=== PATIENT | male | born 1945 | race Caucasian/White ===

== ENCOUNTER → 2016-02-20 | Outpatient (CLI) | payer OTHER ==
[~2016-02-20] MED LIST: AMLO-110 PO; ASPEC81 PO; ATOR-26 PO; CEPH500C2 PO; CIPR-255 PO; DOCU-94 PO; EMPA1TAB3 PO; HYDR-5688 PO; HYG/25 PO; INSUINJ2 SC; ISOS30TA3 PO; LISI40TA PO; METO25TA56 PO; MIRA100T PO; OMEP20CA9 PO; ONDA4TAB10 SL; PHEN-775 PO; PROC1TAB5 PO; TAMS0.4C38 PO; ZOLP5TAB6 PO
== END | disposition home or self-care (01) ==
LOC: C.LABSPEC 15:49
PROVIDERS: ATTEND Urology
DX: N20.0 Calculus of kidney (principal)

== ENCOUNTER → 2016-02-23 | Outpatient (CLI) | payer OTHER ==
--- NOTE | 2016-02-23 15:39 | DIAGNOSTIC IMAGING REPORT ---
CT SCAN OF THE ABDOMEN AND PELVIS WITHOUT IV CONTRAST CLINICAL HISTORY: Nephrolithiasis. COMPARISON STUDY: Abdominal CT dated 01/23/2016. TECHNIQUE: CT scan of the abdomen and pelvis is performed from the lung bases to the proximal femora. Images are reviewed in the axial, sagittal, and coronal planes. IV contrast was not administered for this examination. Automated dose control exposure was utilized. CT DOSE: 1035.12 mGycm FINDINGS: Lung bases: Midline sternotomy wires are noted. The heart is enlarged and without pericardial effusion. The lung bases are clear. There is a moderate and predominantly fat-containing hiatal hernia. Liver: The unenhanced liver is normal in size, contour, and attenuation. There is no intrahepatic biliary ductal dilatation. Gallbladder: Unremarkable. Spleen: Normal in size and attenuation. Pancreas: There is moderate fatty atrophy of the pancreas. Adrenal glands: Unremarkable. Kidneys: The unenhanced kidneys are atrophic. There has been no significant change in the appearance of at least 4 obstructing calculi in the distal right ureter at and above the vesicoureteral junction as compared to the 01/23/2016 examination. The largest stone measures up to 6 mm. This causes mild to moderate right hydroureteronephrosis. There is an additional single punctate nonobstructing right renal plaque is identified. No left renal calculi are seen. There is no right-sided hydronephrosis. There is no evidence of contour deforming renal mass lesion. Abdominal vasculature: The abdominal aorta is normal in course and caliber noting moderate to advanced atherosclerotic calcification. Bowel: The small bowel and colon are normal in course and caliber. The appendix is not identified and reported surgically absent. Peritoneum: There is no intraperitoneal free air or abdominal ascites. There is a small fat-containing umbilical hernia. Lymphadenopathy: None. Pelvic viscera: The prostate is mildly enlarged and heterogeneous, measuring 5.1 cm in transverse diameter. The partially decompressed bladder appears mildly thick walled. The bladder wall is trabeculated, likely related to chronic outlet obstruction. There is a moderate fat-containing left inguinal hernia. Skeletal structures: The skeletal structures are osteopenic. Lumbosacral spondylosis is observed. There are postoperative changes from L4 to L5 spinal fusion. A bone graft donor site is noted in the left ilium. No lytic or blastic lesions are seen. A hemangioma is noted in the body of T10. IMPRESSION: 1. No significant change in the appearance of at least 4 obstructing calculi in the distal right ureter located at and above the vesicoureteral junction as compared to the 01/23/2016 examination. The largest stone measures up to 6 mm, and this causes mild to moderate right hydroureteronephrosis. 2. There is a single additional punctate nonobstructing right renal calculus identified. No left renal calculi are seen. 3. Cardiomegaly and hiatal hernia. 4. Prostatomegaly with evidence of chronic bladder obstruction. 5. Additional changes as above. Electronically signed by: Lokesh Kauffman M.D. 02/23/2016 3:37 PM Dictated Date/Time: 02/23/2016 3:30 PM
[2016-02-23 16:05] LABS: BASO % 0.2 %; BASO ABS # 0.02 K/uL (0-0.2); COMPLETE YES; EOS % 2.2 %; HEMATOCRIT 49.5 % (42-52); IG% 0.2 %; LYMPH % 26.9 %; LYMPH ABS # 2.73 K/uL (1.2-3.4); MEAN CELL VOLUME 87.5 fL (80-100); MEAN CORPUSCULAR HEMOGLOBIN 28.8 pg (25-34); MEAN CORPUSCULAR HGB CONC 32.9 g/dl (32-36); MEAN PLATELET VOLUME 12.8 fL (7.4-10.4); MONO % 13.2 %; NEUT % 57.3 %; PLATELET COUNT 194 K/uL (130-400); RED BLOOD COUNT 5.66 M/uL (4.7-6.1); WHITE BLOOD COUNT 10.15 K/uL (4.8-10.8)
== END | disposition home or self-care (01) ==
LOC: C.CTS 14:54
PROVIDERS: ATTEND Urology
DX: N20.0 Calculus of kidney (principal)

== ENCOUNTER 2016-02-24 10:13 | Day surgery (SDC) | payer OTHER ==
[2016-02-23 09:49] VITALS: BMI 37.0
[~2016-02-24] VITALS: Ht 175.3 cm; Wt 116.0 kg
[~2016-02-24 10:13] MED LIST changes: -AMLO-110 PO; -ASPEC81 PO; -CEPH500C2 PO; -CIPR-255 PO; +CIPROFLOXACIN / D5W 400 MG IV SCH; -DOCU-94 PO; -ISOS30TA3 PO; +LACTATED RINGER'S 1000ML IV SCH; -MIRA100T PO; -ONDA4TAB10 SL; -PHEN-775 PO; -PROC1TAB5 PO
[2016-02-24 10:35] VITALS: BP 139/74; PULSE 57; TEMP 36.5; O2SAT 97; Ht 175.3 cm; Wt 116.0 kg
[2016-02-24] MEDS ORDERED: FENTANYL CITRATE INJ 50 MCG/1 ML 2 ML VIAL IV PRN (11:45)
[2016-02-24] MEDS ORDERED: HYDROmorphone INJ 1 MG/ML SYR IV PRN (11:45)
[2016-02-24] MEDS ORDERED: MEPERIDINE HCL 25 MG/ML CARP IV PRN (11:45)
[2016-02-24] MEDS ORDERED: LABETALOL HCL IV 5 MG/ML 20ML IV PRN (11:45)
[2016-02-24] MEDS ORDERED: ATROPINE SULFATE 0.1 MG/ML 5ML SYR IV PRN (11:45)
[2016-02-24] MEDS ORDERED: EpHEDrine SULFATE INJ 50 MG/ML AMP IV PRN (11:45)
[2016-02-24] MEDS ORDERED: ONDANSETRON INJ 2 MG/ML 2 ML VIAL IV PRN (11:45)
[2016-02-24] MEDS ORDERED: PROPOFOL IV EMULSION 10 MG/ML 20 ML VIAL IV ONE (12:01)
[2016-02-24] MEDS ORDERED: ONDANSETRON INJ 2 MG/ML 2 ML VIAL ONE (12:01)
[2016-02-24] MEDS ORDERED: LIDOCAINE HCL 2% 2 ML VIAL (20MG/ML) ONE (12:01)
[2016-02-24] MEDS ORDERED: FENTANYL CITRATE INJ 50 MCG/1 ML 2 ML VIAL ONE ×2 (12:02→14:28)
--- NOTE | 2016-02-24 13:16 | History & Physical Bridge Note ---
H&P Re-Evaluation Bridge Note: I have examined the patient, reviewed the History & Physical and in the interval since the performance of the History & Physical I have noted the following changes of clinical significance: No changes noted
[2016-02-24] MEDS ORDERED: MIDAZOLAM HCL 1 MG/ML 2ML VIAL ONE (13:20)
[2016-02-24] MEDS ORDERED: METHYLENE BLUE 1% 10 ML VIAL ONE (14:08)
[2016-02-24] MEDS ORDERED: FUROSEMIDE 10 MG/ML 10 ML VIAL ONE (14:16)
[2016-02-24] MEDS ORDERED: SODIUM CHLORIDE 0.9% 1000ML 1,000 ML IV SCH (15:16)
--- NOTE | 2016-02-24 15:16 | [facility] Post Operative Brief Note ---
Immediate Operative Summary Operative Date Feb 24, 2016. Pre-Operative Diagnosis Right distal ureteral stones Post-Operative Diagnosis Right distal ureteral stones, Suspected bladder tumor, Enlarged prostate Procedure(s) Performed Cystoscopy, Right Ureteroscopy, Transurethral Resection Bladder Tumor, Transurethral Resection Prostate Surgeon Dr. Yo Drug Safety Coordinator Surgeon(s) none Estimated Blood Loss 50ml Findings As per dictation - in summary, patient appeared to have an intravesical median lobe of the prostate, but also papillary appearing tumor along the mucosal lining of the intravesical median lobe. This appeared to be obstructing the R ureteral orifice Specimens A.) Suspected Bladder Tumor B.) Prostate Chips C.) Kidney stones for chemical analysis Drains 22F cannon Anesthesia Gen Complication(s) None Disposition Recovery Room / PACU (stable)
[2016-02-24] MEDS ORDERED: CIPR-255 PO (15:21)
[2016-02-24] MEDS ORDERED: HYDR-5688 PO (15:21)
[2016-02-24] MEDS ORDERED: DOCU-94 PO (15:21)
[2016-02-24] MEDS ORDERED: PHEN-775 PO (15:21)
--- NOTE | 2016-02-24 15:23 | Discharge Instructions ---
Discharge Instructions Admission Reason for Admission: Stones Discharge Discharge Diagnosis / Problem: stones Discharge Goals Goal(s): Decrease discomfort, Improve function, Increase independence, Improve disease control Activity Recommendations Activity Limitations: resume your previous activity Lifting Limitations: none Exercise/Sports Limitations: none May Resume Sexual Activity: after one week Shower/Bathe: no limitations Driving or Machine Use: please don't drive while on pain medications . Discharge Diet Recommended Diet: Regular Diet Procedures Procedures Performed: Cystoscopy, Right Ureteroscopy, Transurethral Resection Bladder Tumor, Transurethral Resection Prostate Pending Studies Studies pending at discharge: no Laboratory Results Hemoglobin A1c Test 02/03/16 13:33 Range/Units Estimated Average Glucose 206 mg/dl Hemoglobin A1c 8.8 H 4.5-5.6 % Medical Emergencies . Who to Call and When: Medical Emergencies: If at any time you feel your situation is an emergency, please call 911 immediately. . Non-Emergent Contact Non-Emergency issues call your: Urologist Call Non-Emergent contact if: you have a fever, temperature is above 101.5, your pain is not controlled, your pain is worsening . . "Provider Documentation" section prepared by Tay Ferreira. VTE Core Measure Inpt VTE Proph given/why not?: Treatment not indicated [place] Drug Monitoring Program Search Results: patient reviewed within database, no issues identified
[2016-02-24] MEDS ORDERED: OXYCODONE/ACETAMINOPHEN 5-325 TAB PO PRN ×2 (15:30)
--- NOTE | 2016-02-24 15:44 | OPERATIVE REPORT ---
DATE OF OPERATION: 02/24/2016 PREOPERATIVE DIAGNOSIS: Right ureteral stones. POSTOPERATIVE DIAGNOSES: Right ureteral stone, suspected bladder tumor, and enlarged prostate. PROCEDURES PERFORMED: Cystoscopy, transurethral resection of bladder tumor, transurethral resection of prostate and right ureteroscopy. ESTIMATED BLOOD LOSS: 50 mL. URINE OUTPUT: Not recorded. SPECIMEN: 1. Suspected bladder tumor for routine pathology. 2. Prostate tissue for routine pathology. 3. Stones for chemical analysis. DESCRIPTION OF THE PROCEDURE: Jeremiah Forrester was identified in the preoperative holding area. Appropriate informed consents reviewed and completed and the patient was transported to the operating suite. He received ciprofloxacin and general anesthesia, and was placed in dorsolithotomy position where he was sterilely prepped and draped. I began the case by passing a 22-Polish cystoscope and 30 degree lens. Inspection revealed an enlarged prostate with a high bladder neck and suspected intravesical median lobe. Inspection of this median lobe first appeared to be relatively normal appearing prostate; however, on further inspection, it appeared that he had papillary appearing tumor arising from the back aspect of this intravesical median lobe. Additionally, with full inspection, I was unable to identify either the right or the left ureteral orifice. I could before addressing anything with the prostate or suspected tumor, I administered methylene blue with the hope that I would be able to identify the ureteral orifices. Including the administration of a small dose of Lasix, I was unable to see any blue irrigated. After approximately 20 minutes of time, I elected to break scrub and talked with the patient's regarding suspected bladder tumor and regarding potential for resection of this during the same setting. After describing the situation to him, he was in full agreement that we proceed with a transurethral resection of bladder tumor in an attempt to complete the entire case and treat all the pathology in a single setting. I then returned to the room and I exchanged the regular cystoscope for a resectoscope with a resecting loop. At that time, I resected the papillary-appearing bladder tumor and sent this off the table as a specimen. I continued to resect the intravesical prostate ultimately unroofing the right ureteral orifice which appeared to be completely obstructed by this overgrown prostate and possible tumor. Ureteral orifices were widely patent and stones were easily visualized at the UO. After unroofing the prostate, 4 stones were easily irrigated out of the ureter with minimal manipulation. I collected the stones and passed these off the table as a specimen labeled stones for chemical analysis. There still was a fairly redundant flap of prostate tissue protruding into the bladder and I elected to resect this flush with the remaining aspect of the bladder wall to avoid further urinary difficulties. I did not resect the lateral lobes of the prostate or perform a full TURP. I simply completed the remaining resection after what I resected from the suspected bladder tumor. At that time, the intravesical portion of the bladder and prostate were flushed and hemostatic. I concluded the resecting portion of the case. I exchanged the resectoscope back for a regular cystoscope and cannulated the right ureteral orifice with a sensor wire and a 5-Polish open-ended catheter. The wire advanced to the kidney without difficulty. I then was easily able to navigate a semirigid ureteroscope alongside the wire through this patulous the ureter. There were no other stones visualized within the ureter and I was able to advance to the level of the UPJ without any resistance. At that time, I elected to withdraw the wire and the scope and I left this patient stone free as the ureter was so patulous. I did place a 22-Polish catheter given the resection of the bladder neck and intravesical portion of the prostate. This will be left overnight. The patient was subsequently extubated and taken to the PACU in stable condition. He tolerated the procedure well. I attest to the content of the Intraoperative Record and any orders documented therein. Any exceptio ns are noted below.
[2016-02-24 16:05] VITALS: BP 146/76; PULSE 76; TEMP 36.4; O2SAT 92
[2016-02-24 16:35] VITALS: BP 142/78; PULSE 77; TEMP 36.6; O2SAT 93
--- NOTE | 2016-02-24 16:45 | Anesthesiology Progress Note ---
Anesthesia Post Op Note Date & Time Feb 24, 2016 at 16:44 Vital Signs Pain Intensity: 0 Vital Signs Past 12 Hours Date Time Temp Pulse Resp B/P Pulse Ox O2 Delivery O2 Flow Rate FiO2 02/24/16 16:05 36.4 76 18 146/76 92 Room Air 02/24/16 15:55 79 16 02/24/16 15:55 79 16 93 02/24/16 15:55 36.2 02/24/16 15:54 156/81 02/24/16 15:50 78 16 02/24/16 15:50 78 16 95 02/24/16 15:49 79 16 02/24/16 15:49 79 16 93 02/24/16 15:48 155/83 02/24/16 15:44 80 16 95 02/24/16 15:44 80 16 02/24/16 15:43 151/93 02/24/16 15:40 150/92 02/24/16 15:39 88 16 02/24/16 15:39 80 16 93 02/24/16 15:38 159/102 02/24/16 15:34 82 19 02/24/16 15:34 82 19 94 02/24/16 15:33 142/89 02/24/16 15:29 83 12 02/24/16 15:29 83 12 98 02/24/16 15:28 148/93 02/24/16 15:25 84 16 02/24/16 15:25 84 16 98 02/24/16 15:23 138/93 02/24/16 15:20 88 17 02/24/16 15:20 88 17 97 02/24/16 15:19 152/68 02/24/16 15:15 92 12 97 02/24/16 15:15 36.5 92 11 141/85 99 Nasal Cannula 2 02/24/16 15:15 92 12 02/24/16 10:35 36.5 57 20 139/74 97 Room Air Notes Mental Status: alert / awake / arousable, participated in evaluation Pt Amnestic to Procedure: Yes Nausea / Vomiting: adequately controlled Pain: adequately controlled Airway Patency, RR, SpO2: stable & adequate BP & HR: stable & adequate Hydration State: stable & adequate Anesthetic Complications: no major complications apparent
[2016-02-24 17:05] VITALS: BP 146/80; PULSE 82; TEMP 36.4; O2SAT 96
[2016-03-16] MEDS ORDERED: PROC1TAB5 PO (09:36)
[2016-07-05] MEDS ORDERED: ISOS30TA3 PO (12:09)
[2016-07-05] MEDS ORDERED: CEPH500C2 PO (12:09)
[2016-07-05] MEDS ORDERED: AMLO-110 PO (12:09)
[2016-07-05] MEDS ORDERED: METO25TA56 PO (12:09)
== END 2016-02-24 17:18 | disposition home or self-care (01) ==
LOC: C.ACU 10:13
PROVIDERS: ATTEND Urology
DX: C67.9 Malignant neoplasm of bladder, unspecified (principal); C61 Malignant neoplasm of prostate; N40.1 Benign prostatic hyperplasia with lower urinary tract symptoms; N20.1 Calculus of ureter; I10 Essential (primary) hypertension; E11.9 Type 2 diabetes mellitus without complications; Z79.4 Long term (current) use of insulin; Z79.899 Other long term (current) drug therapy

== ENCOUNTER → 2016-03-10 | Outpatient (CLI) | payer OTHER ==
[~2016-03-10] MED LIST changes: +AMLO-110 PO; +ASPEC81 PO; +CEPH500C2 PO; +CIPR-255 PO; -CIPROFLOXACIN / D5W 400 MG IV SCH; +DOCU-94 PO; +ISOS30TA3 PO; -LACTATED RINGER'S 1000ML IV SCH; +ONDA4TAB10 SL; +PROC1TAB5 PO
--- NOTE | 2016-03-10 13:50 | DIAGNOSTIC IMAGING REPORT ---
PET/CT HISTORY: PROSTATE CANCER TECHNIQUE: PET/CT was performed from the base of the skull through the pelvis following the intravenous administration of 15.2 mCi of F18-FDG. Non-contrast CT imaging was performed over the same range without breath-hold for attenuation correction of PET images and anatomic correlation, but not for primary interpretation as it is not of standard diagnostic quality. CT DOSE: COMPARISON: Abdomen and pelvis CT 02/23/2016. FINDINGS: HEAD AND NECK: There is no FDG-avid disease or significant lymphadenopathy in the imaged portions of the head and the neck. FDG uptake within the right masseter muscle and left pterygoid muscles is likely physiologic. CHEST: There is no FDG-avid disease in the chest. There is no axillary, mediastinal, or hilar lymphadenopathy. There is no pleural or pericardial effusion. There is no air-space disease or suspicious lung nodule. There is a left upper chest subcutaneous electronic device. The heart is mildly enlarged. There are poststernotomy changes. Minimal FDG uptake at the inferior sternotomy is likely due to postoperative change. ABDOMEN/PELVIS: Below the diaphragm, tracer is distributed physiologically in the gastrointestinal and genitourinary tracts. There is no significant lymphadenopathy. Small fat-containing left inguinal hernia. Best seen on image 218 there is focal dilatation of the distal left ureter. In addition, this could be a small diverticulum adjacent to the distal left ureter. This demonstrates intense FDG uptake which is likely physiologic. An underlying urothelial malignancy cannot be excluded but would be considered less likely given the lack of upstream dilatation of the left ureter. Mild scattered foci of FDG uptake within the prostate gland which is nonspecific. No focal intense FDG uptake identified. MUSCULOSKELETAL: There is no FDG-avid , sclerotic, or destructive bone lesion. Postoperative changes seen within the cervical and lumbar spine. Focal bony defect within the left posterior iliac bone demonstrating minimal degenerative uptake. This is consistent with a site of prior bone harvesting. IMPRESSION: 1. No FDG avid metastatic disease identified. 2. Mild scattered foci of FDG uptake within the prostate gland is nonspecific. No focal intense FDG uptake identified. 3. Focal area of intense FDG uptake in the region of the distal left ureter. The distal left ureter appears focally distended. However, this could represent a small diverticulum adjacent to the distal left ureter. The FDG uptake is likely physiologic. An underlying urothelial malignancy cannot be excluded but would be considered less likely given the lack of upstream dilatation of the left ureter. 4. Additional findings as described above. Electronically signed by: Chicho Powell M.D. 03/10/2016 1:48 PM Dictated Date/Time: 03/10/2016 12:43 PM
== END | disposition home or self-care (01) ==
LOC: C.PET 09:58
PROVIDERS: ATTEND Urology
DX: C61 Malignant neoplasm of prostate (principal); C67.9 Malignant neoplasm of bladder, unspecified

== ENCOUNTER 2016-03-28 10:27 | Inpatient (IN) | payer OTHER ==
[~2016-03-28] VITALS: Ht 175.3 cm; Wt 114.5 kg
[~2016-03-28 10:27] MED LIST changes: -AMLO-110 PO; -ASPEC81 PO; -CEPH500C2 PO; -CIPR-255 PO; -DOCU-94 PO; -EMPA1TAB3 PO; -ISOS30TA3 PO; -ONDA4TAB10 SL; -TAMS0.4C38 PO
[2016-03-28] MEDS ORDERED: ACETAMINOPHEN 325 MG TAB PO PRN (14:30)
[2016-03-28 15:08] VITALS: BP 129/82; PULSE 70; TEMP 37.3; O2SAT 96; BMI 36.8
[2016-03-28 15:19] VITALS: BP 130/76; PULSE 67; TEMP 37; O2SAT 99
[2016-03-28 15:26] LABS: BLOOD UREA NITROGEN 72 mg/dl (7-18); BUN/CREATININE RATIO 19.4 (10-20); CALCIUM 7.9 mg/dl (8.5-10.1); CARBON DIOXIDE 22 mmol/L (21-32); CHLORIDE 104 mmol/L (98-107); GLUCOSE 221 mg/dl (70-99); POTASSIUM 4.2 mmol/L (3.5-5.1); SODIUM 140 mmol/L (136-145)
[2016-03-28] MEDS ORDERED: DEXTROSE 50% 50 ML SYR IV PRN (15:30)
[2016-03-28] MEDS ORDERED: GLUCOSE 40% GEL 15 GM TUBE PO PRN (15:30)
[2016-03-28] MEDS ORDERED: GLUCOSE 10 TABS/TUBE PO PRN (15:30)
[2016-03-28] MEDS ORDERED: GLUCAGON FOR INJ 1 MG VIAL SQ PRN (15:30)
[2016-03-28 15:40] LABS: MEAN CELL VOLUME 83.1 fL (80-100); MEAN CORPUSCULAR HEMOGLOBIN 28.6 pg (25-34); MEAN CORPUSCULAR HGB CONC 34.4 g/dl (32-36); MEAN PLATELET VOLUME 11.2 fL (7.4-10.4); PLATELET COUNT 8 K/uL (130-400); RED BLOOD COUNT 4.33 M/uL (4.7-6.1); WHITE BLOOD COUNT 0.97 K/uL (4.8-10.8)
[2016-03-28 15:59] LABS: BASO ABS # 0.02 K/uL (0-0.2); BASOPHIL % 1.7 % (0-2); COMPLETE YES; EOSINOPHIL % 6.9 %; LARGE PLATELETS 1+; LYMPH ABS # 0.71 K/uL (1.2-3.4); LYMPHOCYTE % 73.3 %; SPHEROCYTE 1+; VARIANT LYM ABS # 0.16 K/uL; VARIANT LYMPHOCYTE % 16.4 %
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
[2016-03-28] MEDS ORDERED: FILGRASTIM 300 MCG/ML 1 ML VIAL SQ SCH (16:45)
--- NOTE | 2016-03-28 16:48 | Oncology Consultation ---
Oncology/Heme Consultation Date of Consultation: Mar 28, 2016. Attending Physician: Cecil Boo D.O. 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 Forrester is a 70-year-old gentleman that was recently found to have hematuria associated with the bladder tumor. Pathologically the bladder tumor was felt to be consistent with small cell carcinoma. PET scan appeared to show the disease confined to the genitourinary tract. He was treated with cisplatin and ASSISTANT OFFICE MANAGER-16 March 16March this first and second. His : Last evening his had that he was having a fever and developed a chill and night before. He was seen at [facility] with marked pancytopenia. He also has a history of chronic renal sufficiency and his creatinine is now more elevated. He states that he's had some mild nausea without emesis. He states he has been having diarrhea without seeing any blood in his stool. He looks quite comfortable this evening. 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 History of diabetes mellitus History of coronary artery disease Family History Heart disease Hypertension Social History Smoking Status: Never Smoker Marital Status: Housing Status: lives with family Occupation Status: retired Allergies Coded Allergies: No Known Allergies (Verified , 02/24/16) Home Medications Scheduled Atorvastatin (Lipitor), 40 MG PO HS Chlorthalidone (Hygroton), 25 TAB PO QAM Insulin Regular (Human) (Humulin R U-500 (Concentr), 22 UNITS SC BID Lisinopril (Zestril), 40 MG PO QAM Metoprolol Tartrate (Lopressor) (Lopressor), 25 MG PO BID Omeprazole (Prilosec), 20 MG PO QAM Zolpidem Tartrate (Zolpidem Tartrate), 5 MG PO HS Scheduled PRN Hydrocodone/Acetaminophen 5MG/325MG ([place] 5MG/325MG), 1 TABLET PO Q6H PRN for Pain Prochlorperazine Maleate (Compazine), 1 TAB PO Q6 PRN for Nausea or Vomiting Current Inpatient Medications Current Inpatient Medications Medications (Trade) Dose Ordered Sig/Reese Route Start Time Stop Time Status Last Admin Dose Admin Acetaminophen (Tylenol Tab) 650 mg Q4H PRN PO 03/28/16 14:30 04/27/16 14:29 Ondansetron HCl (Zofran Inj) 4 mg Q6H PRN IV 03/28/16 14:30 04/27/16 14:29 Atorvastatin Calcium (Lipitor Tab) 40 mg HS PO 03/28/16 21:00 04/27/16 20:59 Acetaminophen/ Hydrocodone Bitart ([place] 5/325 Tab) 1 tab Q6H PRN PO 03/28/16 14:45 04/11/16 14:44 Metoprolol Tartrate (Lopressor Tab) 25 mg BID PO 03/28/16 20:00 04/27/16 19:59 Non-Formulary Medication (Insulin Regular (Human) (Humulin R U-500 (Concentr)) 22 units BID SC 03/28/16 20:00 04/27/16 19:59 UNV Pantoprazole Sodium (Protonix Tab) 40 mg QAM PO 03/29/16 08:00 04/28/16 07:59 Glucose (Glucose 40% Gel) 15-30 GRAMS 15 GRAMS... UD PRN PO 03/28/16 15:30 04/27/16 15:29 Glucose (Glucose Chew Tab) 4-8 Tablets 4 Tabl... UD PRN PO 03/28/16 15:30 04/27/16 15:29 Dextrose (Dextrose 50% 50ML Syringe) 25-50ML OF 50% DW IV FOR... UD PRN IV 03/28/16 15:30 04/27/16 15:29 Glucagon 1 mg 1 mg UD PRN SQ 03/28/16 15:30 04/27/16 15:29 Sodium Chloride 1,000 ml @ 100 mls/hr Q10H IV 03/28/16 16:15 04/27/16 16:14 Cefepime HCl/ Dextrose (Maxipime IV/D5 100ml) 111.3 ml @ 200 mls/hr Q24H IV 03/28/16 17:00 03/30/16 16:14 Filgrastim (Neupogen Sq) 480 mcg ONE SC 03/28/16 16:15 04/27/16 16:14 UNV Insulin Aspart (novoLOG ASPART) SLIDING SCALE G... ACHS SC 03/28/16 16:30 04/27/16 16:29 UNV Review of Systems Constitutional: Negative for weight loss, or night sweats he has had a fever and a chill for the past 24-36 hours Eyes: Negative for event change of vision ENT: Negative for epistaxis, nasal discharge, sore throat, or deafness Cardiovascular: Negative for chest pain, palpitations, dizziness, diaphoresis Respiratory: Negative for new shortness of breath,hemoptysis, or purulent cough Gastrointestinal: Negative for diarrhea, hematemesis, melena, nausea, vomiting , or dyspepsia Integumentary (skin): Negative for rash or jaundice discoloration Genitourinary: Negative for urinary frequency, hematuria, or dysuria Neurological: Negative for weakness, seizure activity, headache, or dizziness Lymphatic/Hematologic: Negative for petechiae, bleeding or new adenopathy Musculoskeletal: Negative for new joint or back pain Allergic/Immunologic: Negative for unusual rash or pruritis. Physical Exam Date Time Temp Pulse Resp B/P Pulse Ox O2 Delivery O2 Flow Rate FiO2 03/28/16 15:19 37.0 67 18 130/76 99 Room Air 03/28/16 15:08 37.3 70 18 129/82 96 Room Air Constitutional: vitals are stable. Eyes: Eyes are JORY EOMI without conjuctival erythema or icterus. ENT: External examination was negative for masses. Neck: Negative for masses or palpable thyromegaly Respiratory: Lung sounds were generally clear bilaterally Cardiovascular: Heart was RRR without significant murmur, gallops or rubs Gastrointestinal: No palpable hepatic or splenomegaly. The abdomen was soft with normal bowel sounds. Lymphatic system: there was no palpable peripheral lymphadenopathy Musculoskeletal System: The musculoskeletal system seemed concordant with age. Skin: The skin was negative for jaundice. Neurologic exam: The exam was negative for any focal findings. Deep tendon reflexes were equal and symmetrical. Psychiatric exam: Was essentially negative with normal mood and effect. Extremities: Negative for edema or erythema Laboratory Results Last 24 Hours Test 03/28/16 14:57 White Blood Count 0.97 K/uL Red Blood Count 4.33 M/uL Hemoglobin 12.4 g/dL Hematocrit 36.0 % Mean Corpuscular Volume 83.1 fL Mean Corpuscular Hemoglobin 28.6 pg Mean Corpuscular Hemoglobin Concent 34.4 g/dl Platelet Count 8 K/uL Mean Platelet Volume 11.2 fL RDW Standard Deviation 38.3 fL RDW Coefficient of Variation 12.6 % Neutrophils % (Manual) 0.0 % Lymphocytes % (Manual) 73.3 % Variant Lymphocytes % (manual) 16.4 % Monocytes % (Manual) 1.7 % Eosinophils % (Manual) 6.9 % Basophils % (Manual) 1.7 % Neutrophils # (Manual) 0.00 K/uL Total Absolute Neutrophils 0.00 K/uL Lymphocytes # (Manual) 0.71 K/uL Absolute Variant Lymphocytes 0.16 K/uL Total Absolute Lymphocytes 0.87 K/uL Monocytes # (Manual) 0.02 K/uL Eosinophils # (Manual) 0.07 K/uL Basophils # (Manual) 0.02 K/uL Large Platelets 1+ Spherocytes 1+ Sodium Level 140 mmol/L Potassium Level 4.2 mmol/L Chloride Level 104 mmol/L Carbon Dioxide Level 22 mmol/L Anion Gap 14.0 mmol/L Blood Urea Nitrogen 72 mg/dl Creatinine 3.70 mg/dl Estimated GFR () 18.1 Estimated GFR (Non- 15.6 BUN/Creatinine Ratio 19.4 Random Glucose 221 mg/dl Calcium Level 7.9 mg/dl Hepatitis C Antibody Screen NEG Assessment & Plan 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 Marked cytopenia secondary to chemotherapy. He also has creatinine is rising compared to baseline. Vigorous replacement with IV fluid should be given in light of his recent diarrhea and recent exposure to cisplatin. Neupogen (G-CSF) should also be administered daily until white cell number approaches 5000. It looks like also that he will need a platelet transfusion. His been no overt bleeding but his platelet number is less than 10,000. Hemoglobin is stable at 12. Antibiotics are ongoing cultures are pending.
[2016-03-28 16:58] LABS: MANUAL MICROSCOPIC REQUIRED? YES; URINE APPEARANCE CLEAR (CLEAR); URINE BILIRUBIN NEG (NEG); URINE COLOR YELLOW; URINE NITRITE NEG (NEG); UROBILINOGEN NEG (NEG)
[2016-03-28 16:59] LABS: REVIEW REQ? NO
[2016-03-28] MEDS ORDERED: FILGRASTIM 480 MCG/1.6 ML VIAL SC ONE (17:00)
[2016-03-28] MEDS ORDERED: CEFEPIME IV 1,000 MG in DEXTROSE 5% 100ML 100 ML IV SCH (17:00)
[2016-03-28 17:10] LABS: URINE BACTERIA NEG (NEG); URINE RBC 0-4 /hpf (0-4)
[2016-03-28] MEDS: SODIUM CHLORIDE 0.9% 1000ML 1,000 ML IV SCH (17:49)
--- NOTE | 2016-03-28 18:34 | DIAGNOSTIC IMAGING REPORT ---
CHEST ONE VIEW PORTABLE CLINICAL HISTORY: Neutropenia, chills COMPARISON STUDY: PET/CT March 10, 2016 and chest radiograph March 29, 2014. FINDINGS: Median sternotomy wires and an electronic device projecting over the left hemithorax are noted. There is a surgical anchor within the right humeral head. There is no pneumothorax or pleural effusion. There is no evidence of pulmonary edema. Moderate cardiomegaly is unchanged. There is no consolidation. IMPRESSION: No acute cardiopulmonary findings. Electronically signed by: Frankie Duran M.D. 03/28/2016 6:33 PM Dictated Date/Time: 03/28/2016 6:31 PM
[2016-03-28] MEDS: INSULIN ASPART 100 UNITS/ML 3 ML PEN SC SCH ×3 (18:35→23:30)
[2016-03-28 19:19] VITALS: BP 150/81; PULSE 71; TEMP 36.9; O2SAT 97
[2016-03-28] MEDS ORDERED: PHARMACY GLYCEMIC MGMT CONSULT PRN (19:33)
[2016-03-28 19:34] VITALS: BP 123/85; PULSE 77
[2016-03-28] MEDS: ATORVASTATIN 40 MG TAB PO SCH (19:35)
[2016-03-28] MEDS: METOPROLOL TARTRATE 25 MG TAB PO SCH (19:35)
[2016-03-28] MEDS ORDERED: [UNRECOGNIZED DRUG - OTHER] SC SCH (20:00)
[2016-03-28] MEDS ORDERED: INSULIN REGULAR SC SCH (20:00)
--- NOTE | 2016-03-28 20:48 | Pharmacy Progress Note ---
Glycemic Control Intl Consult Date of Service Mar 28, 2016. Scope Glycemic Pharmacist consulted by Dr Bishop on 03/28/16 for glycemic control and to write orders per [facility] inpatient glycemic control protocol Objective Weight (Kilograms): 113.100 Accuchecks BSG (last 24hrs): Test 03/28/16 14:57 03/28/16 16:39 03/28/16 19:52 Random Glucose 221 mg/dl (70-99) Bedside Glucose 216 mg/dl (70-99) 195 mg/dl (70-99) Laboratory Data (last 24hrs) Test 03/28/16 14:57 Anion Gap 14.0 mmol/L BUN/Creatinine Ratio 19.4 Blood Urea Nitrogen 72 mg/dl Creatinine 3.70 mg/dl Potassium Level 4.2 mmol/L Sodium Level 140 mmol/L White Blood Count 0.97 K/uL Red Blood Count 4.33 M/uL Hemoglobin 12.4 g/dL Hematocrit 36.0 % Mean Corpuscular Volume 83.1 fL Mean Corpuscular Hemoglobin 28.6 pg Mean Corpuscular Hemoglobin Concent 34.4 g/dl Platelet Count 8 K/uL Mean Platelet Volume 11.2 fL Recent Pertinent Medications Outpatient Anti-diabetic Regimen: * U-500 insulin 0.22mL (drawn up in a 1 mL syringe) BID * = 110 units of U-100 BID * = 220 units of U-100 per day * A1c = 8.8 % 01/2016 The patient is currently receiving: * U-500 insulin * 22 units SQ BID * NovoLog Correction per scale AC/HS * Goal Range: Low 120 mg/dL - High 160 mg/dL * Correction Factor: 30 mg/dL/unit * Carb ratio of 1 unit per 10 grams CHO consumed Risk Factors for Insulin Resistance: * Infection: cefepime IV * IVF: NSS * Diet: T2DM Assessment & Plan ASSESSMENT: * ADA & AACE recommend a goal blood sugar range 140-180 mg/dl for the majority of critically ill & non-critically ill patients. However, more stringent targets may be selected in individual cases. 03/28/16 * 70 y/o transfer from [facility] secondary to neutropenia and acute renal failure. * As an outpatient, Mr. oFrrester uses U-500 insulin twice daily with fair control of his diabetes * I discussed home regimen with the patient. He was very knowledgeable about his doses and the syringes that he uses as an outpatient. * U-500 insulin NOT given today as patient was in another facility * A dose of a unknown insulin was given at [facility] per patient * Upon admission, random BSG 221mg/dL with POC 216mg/dL * after 3 units of NovoLog per provider NovoLog order, BSG 195mg/dL * I hesitate to give equi-doses of Basal/Bolus insulin on admission as U-500 patients typically require significantly lower doses of insulin while admitted to the hospital. * Transition from U-500 to basal/bolus insulin based on patient weight and a stress of 2 and titrate PRN PLAN FOR INPATIENT GLYCEMIC CONTROL: * Lantus 20 units SQ x1 dose tonight * Follow up doses based on response * NovoLog AC and HS * add 02:00 Accu-check since insulin needs unknown * Correction factor 20mg/dL/unit * Carb ratio of 1 unit per 7 g of CHO consumed * Goal range: 120-160mg/dL * A1c - current * Please note that the plan above was derived based on current level of insulin resistance and hospital stress. These recommendations are appropriate for inpatient admission only. Plan of care upon discharge will need to be reassessed to avoid potential outpatient hypo/hyperglycemia. Thank you.
[2016-03-28] MEDS ORDERED: INSULIN GLARGINE SOLOSTAR 100 UNITS/ML 3 ML PEN SC SCH (21:00)
[2016-03-28 23:03] VITALS: BP 146/75; PULSE 65; TEMP 37.1; O2SAT 96
[2016-03-28] MEDS: ZOLPIDEM TARTRATE 5 MG TAB PO PRN (23:25)
[2016-03-29] VITALS (13 sets, daily range): BP systolic 118–148; BP diastolic 72–85; PULSE 63–75; TEMP 36.6–37.3; O2SAT 94–97
[2016-03-29] MEDS ORDERED: INSULIN ASPART 100 UNITS/ML 3 ML PEN SC SCH (02:00)
[2016-03-29] MEDS: SODIUM CHLORIDE 0.9% 1000ML 1,000 ML IV SCH ×3 (02:19→22:43)
[2016-03-29] MEDS: INSULIN ASPART 100 UNITS/ML 3 ML PEN SC SCH ×6 (04:06→23:53)
[2016-03-29 06:27] LABS: HEMATOCRIT 34.4 % (42-52); MEAN CELL VOLUME 84.3 fL (80-100); MEAN CORPUSCULAR HEMOGLOBIN 28.7 pg (25-34); PLATELET COUNT 9 K/uL (130-400); RED BLOOD COUNT 4.08 M/uL (4.7-6.1); WHITE BLOOD COUNT 1.07 K/uL (4.8-10.8)
[2016-03-29 06:41] LABS: PLT ESTIMATE SIGNIFIC DECREASED
[2016-03-29 06:45] LABS: COMPLETE YES; EOSINOPHIL % 10.3 %; LYMPH ABS # 0.78 K/uL (1.2-3.4); NEUTROPHILS % 0.9 %; VARIANT LYM ABS # 0.13 K/uL; VARIANT LYMPHOCYTE % 12.1 %
[2016-03-29 06:48] LABS: BUN/CREATININE RATIO 20.1 (10-20); CALCIUM 7.8 mg/dl (8.5-10.1); CREATININE 3.5 mg/dl (0.60-1.40); MAGNESIUM 1.1 mg/dl (1.8-2.4); POTASSIUM 3.7 mmol/L (3.5-5.1)
[2016-03-29] MEDS ORDERED: INSULIN GLARGINE SOLOSTAR 100 UNITS/ML 3 ML PEN SC SCH (08:00)
[2016-03-29] MEDS: METOPROLOL TARTRATE 25 MG TAB PO SCH ×2 (08:27→20:44)
[2016-03-29] MEDS: PANTOprazole SOD 40 MG TAB PO SCH (08:28)
[2016-03-29] MEDS: ONDANSETRON INJ 2 MG/ML 2 ML VIAL IV PRN (08:28)
--- NOTE | 2016-03-29 08:33 | Hospitalist Progress Note ---
Hospitalist Progress Note Date of Service Mar 29, 2016. Subjective Pt evaluation today including: conversation w/ patient, physical exam, chart review, lab review, review of studies, review of inpatient medication list Pain: mild low back PO Intake: good Voiding: no voiding problems The patient was seen and examined this morning. Pt reports having some mild low back pain this morning. He has been tolerating oral intake without difficulty, encouraged to continue to drink water with BERNADETTE. Pt has not had any low abdominal pain today. He is urinating without difficulty, denies hematuria. Complains of mild low back pain, but improved with moving around. All Other Systems: Reviewed and Negative (other than listed in HPI) Objective Vital Signs Date Time Temp Pulse Resp B/P Pulse Ox O2 Delivery O2 Flow Rate FiO2 03/29/16 07:17 36.6 69 16 118/73 97 Room Air 03/29/16 05:09 36.9 73 18 139/85 94 Room Air 03/29/16 00:00 Room Air 03/28/16 23:03 37.1 65 18 146/75 96 Room Air 03/28/16 19:34 77 123/85 03/28/16 19:19 36.9 71 18 150/81 97 Room Air 03/28/16 19:15 Room Air 03/28/16 15:19 37.0 67 18 130/76 99 Room Air 03/28/16 15:08 37.3 70 18 129/82 96 Room Air Physical Exam General Appearance: WD/WN, no apparent distress, + obese Eyes: PERRL, EOMI ENT: hearing grossly normal, pharynx normal Neck: no JVD Respiratory/Chest: chest non-tender, lungs clear, normal breath sounds, no respiratory distress, no accessory muscle use Cardiovascular: regular rate, rhythm, no murmur Abdomen: normal bowel sounds, non tender, soft, + pertinent finding (obese) Extremities: non-tender, no pedal edema, no calf tenderness Neurologic/Psychiatric: alert, normal mood/affect, oriented x 3 Skin: normal color, warm/dry Laboratory Results Last 24 Hours Test 03/28/16 14:57 03/28/16 16:39 03/28/16 16:50 03/28/16 19:52 White Blood Count 0.97 K/uL Red Blood Count 4.33 M/uL Hemoglobin 12.4 g/dL Hematocrit 36.0 % Mean Corpuscular Volume 83.1 fL Mean Corpuscular Hemoglobin 28.6 pg Mean Corpuscular Hemoglobin Concent 34.4 g/dl Platelet Count 8 K/uL Mean Platelet Volume 11.2 fL RDW Standard Deviation 38.3 fL RDW Coefficient of Variation 12.6 % Neutrophils % (Manual) 0.0 % Lymphocytes % (Manual) 73.3 % Variant Lymphocytes % (manual) 16.4 % Monocytes % (Manual) 1.7 % Eosinophils % (Manual) 6.9 % Basophils % (Manual) 1.7 % Neutrophils # (Manual) 0.00 K/uL Total Absolute Neutrophils 0.00 K/uL Lymphocytes # (Manual) 0.71 K/uL Absolute Variant Lymphocytes 0.16 K/uL Total Absolute Lymphocytes 0.87 K/uL Monocytes # (Manual) 0.02 K/uL Eosinophils # (Manual) 0.07 K/uL Basophils # (Manual) 0.02 K/uL Large Platelets 1+ Spherocytes 1+ Sodium Level 140 mmol/L Potassium Level 4.2 mmol/L Chloride Level 104 mmol/L Carbon Dioxide Level 22 mmol/L Anion Gap 14.0 mmol/L Blood Urea Nitrogen 72 mg/dl Creatinine 3.70 mg/dl Estimated GFR () 18.1 Estimated GFR (Non- 15.6 BUN/Creatinine Ratio 19.4 Random Glucose 221 mg/dl Calcium Level 7.9 mg/dl Hepatitis C Antibody Screen NEG Bedside Glucose 216 mg/dl 195 mg/dl Urine Color YELLOW Urine Appearance CLEAR Urine pH 5.0 Urine Specific [place] 1.020 Urine Protein TRACE Urine Glucose (UA) TRACE Urine Ketones NEG Urine Occult Blood 1+ Urine Nitrite NEG Urine Bilirubin NEG Urine Urobilinogen NEG Urine Leukocyte Esterase NEG Urine RBC 0-4 /hpf Urine WBC 1-5 /hpf Urine Epithelial Cells 10-20 /lpf Urine Bacteria NEG Urine Random Creatinine 95.0 mg/dl Urine Random Sodium 66 mEq/L Test 03/28/16 23:27 03/29/16 04:04 03/29/16 05:25 03/29/16 07:36 Bedside Glucose 180 mg/dl 174 mg/dl 135 mg/dl White Blood Count 1.07 K/uL Red Blood Count 4.08 M/uL Hemoglobin 11.7 g/dL Hematocrit 34.4 % Mean Corpuscular Volume 84.3 fL Mean Corpuscular Hemoglobin 28.7 pg Mean Corpuscular Hemoglobin Concent 34.0 g/dl Platelet Count 9 K/uL RDW Standard Deviation 38.8 fL RDW Coefficient of Variation 12.7 % Neutrophils % (Manual) 0.9 % Lymphocytes % (Manual) 73.0 % Variant Lymphocytes % (manual) 12.1 % Monocytes % (Manual) 3.7 % Eosinophils % (Manual) 10.3 % Neutrophils # (Manual) 0.01 K/uL Total Absolute Neutrophils 0.01 K/uL Lymphocytes # (Manual) 0.78 K/uL Absolute Variant Lymphocytes 0.13 K/uL Total Absolute Lymphocytes 0.91 K/uL Monocytes # (Manual) 0.04 K/uL Eosinophils # (Manual) 0.11 K/uL Platelet Estimate SIGNIFIC DECREASED Red Blood Cell Morphology Unremarkable Sodium Level 142 mmol/L Potassium Level 3.7 mmol/L Chloride Level 108 mmol/L Carbon Dioxide Level 21 mmol/L Anion Gap 13.0 mmol/L Blood Urea Nitrogen 70 mg/dl Creatinine 3.50 mg/dl Est Creatinine Clear Calc Drug Dose 24.1 ml/min Estimated GFR () 19.3 Estimated GFR (Non- 16.7 BUN/Creatinine Ratio 20.1 Random Glucose 167 mg/dl Calcium Level 7.8 mg/dl Magnesium Level 1.1 mg/dl Assessment and Plan 70 yo male with 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 Hx of exposure to agent orange in [place]. BERNADETTE on CKD: - Cr was 3.7 on admission, now down to 3.5 - Strict I/Os with decreased UO recently - will treat with NSS 100cc/hr, hold nephrotoxins - urine sodium & urine creatinine both WNL - consult nephrology- appreciate recs - check renal US Neutropenia due to chemotherapy: ANC is 0.1 after Neupogen injection, will need Neulasta as an outpatient per onc. - appreciate recs. - Will need daily neupogen injections for now - neutropenia precautions, will treat with Cefepime (day #2) - blood cultures in process - CXR without acute pulmonary findings or active disease in the chest. - UA slightly dirty, follow culture Thrombocytopenia: related to chemo, follow with daily CBC, no bleeding or bruising currently SCC Bladder: consult oncology GERD: PPI DM II: basal insulin as well as Novolog coverage, diabetic diet DVT ppx: contraindicated, thrombocytopenia Disposition: From home, discharge when medically stable.
--- NOTE | 2016-03-29 09:29 | Hematology/Oncology Prog Note ---
Hematology/Onc Progress Note Date of Service Mar 29, 2016. Diagnoses Small cell bladder cancer BERNADETTE Neutropenia Medications Medications Administered Medications (Trade) Dose Ordered Sig/Reese Route Start Time Stop Time Status Last Admin Dose Admin Ondansetron HCl (Zofran Inj) 4 mg Q6H PRN IV 03/28/16 14:30 04/27/16 14:29 03/29/16 08:28 4 MG Atorvastatin Calcium (Lipitor Tab) 40 mg HS PO 03/28/16 21:00 04/27/16 20:59 03/28/16 19:35 40 MG Metoprolol Tartrate (Lopressor Tab) 25 mg BID PO 03/28/16 20:00 04/27/16 19:59 03/29/16 08:27 25 MG Pantoprazole Sodium 40 mg 40 mg QAM PO 03/29/16 08:00 04/28/16 07:59 03/29/16 08:28 40 MG Sodium Chloride 1,000 ml @ 100 mls/hr Q10H IV 03/28/16 16:15 04/27/16 16:14 03/29/16 02:19 100 MLS/HR Cefepime HCl/ Dextrose (Maxipime IV/D5 100ml) 111.3 ml @ 200 mls/hr Q24H IV 03/28/16 17:00 03/30/16 16:14 03/28/16 17:54 200 MLS/HR Filgrastim (Neupogen Sq) 480 mcg ONE ONCE SC 03/28/16 17:00 03/28/16 17:01 DC 03/28/16 17:55 480 MCG Insulin Aspart (novoLOG ASPART) SLIDING SCALE G... ACHS SC 03/28/16 16:30 04/27/16 16:29 03/29/16 08:25 2 UNITS Insulin Glargine (Lantus Solostar Pen) 20 unit TODAY@2100 SC 03/28/16 21:00 03/28/16 22:00 DC 03/28/16 20:57 20 UNIT Insulin Aspart (novoLOG ASPART) SLIDING SCALE G... 0000,0400 SC 03/29/16 00:00 04/28/16 00:00 03/29/16 04:06 1 UNITS Zolpidem Tartrate (Ambien Tab) 5 mg HS PRN PO 03/28/16 23:15 04/27/16 23:14 03/28/16 23:25 5 MG Insulin Glargine (Lantus Solostar Pen) 10 unit BID SC 03/29/16 08:00 04/28/16 07:59 03/29/16 08:26 10 UNIT Subjective Mr. Forrester feels ok today. He denies nausea or vomiting, fevers, chills, hematuria, or bleeding elsewhere. He does report he had issues with poor appetite and hydration at home over the last week in particular. Review of Systems: Constitutional: + fatigue, No chills, No fever, No sweats Eyes: No worsening of vision ENT: No unusual epistaxis Respiratory: No cough, No hemoptysis, No shortness of breath Cardiovascular: No chest pain Abdomen: No GI bleeding, No nausea, No pain, No vomiting Musculoskeletal: No joint pain, No muscle pain Male : No dysuria, No hematuria Neurologic: No numbness/tingling, No weakness Heme: No abnormal bleeding/bruising Vital Signs Vital Signs Past 12 Hours Date Time Temp Pulse Resp B/P Pulse Ox O2 Delivery O2 Flow Rate FiO2 03/29/16 07:17 36.6 69 16 118/73 97 Room Air 03/29/16 05:09 36.9 73 18 139/85 94 Room Air 03/29/16 00:00 Room Air 03/28/16 23:03 37.1 65 18 146/75 96 Room Air Physical Exam Constitutional: General Apperance: obese Level of Distress: NAD Psychiatric: Mental Status: active & alert Orientation: oriented except where noted, to time, to place, to person Eyes: EOM: EOMI Lungs: Respiratory Effort: no dyspnea Auscuitation: CTA except as noted Cardiovascular: Heart Auscultation: RRR, no murmurs Abdomen: Inspection & Palpation: soft, no tenderness, guarding & rebound Extremities: no edema Neurologic: Cranial Nerves: grossly intact Laboratory Last 24 Hours Test 03/28/16 14:57 03/28/16 16:39 03/28/16 16:50 03/28/16 19:52 White Blood Count 0.97 K/uL Red Blood Count 4.33 M/uL Hemoglobin 12.4 g/dL Hematocrit 36.0 % Mean Corpuscular Volume 83.1 fL Mean Corpuscular Hemoglobin 28.6 pg Mean Corpuscular Hemoglobin Concent 34.4 g/dl Platelet Count 8 K/uL Mean Platelet Volume 11.2 fL RDW Standard Deviation 38.3 fL RDW Coefficient of Variation 12.6 % Neutrophils % (Manual) 0.0 % Lymphocytes % (Manual) 73.3 % Variant Lymphocytes % (manual) 16.4 % Monocytes % (Manual) 1.7 % Eosinophils % (Manual) 6.9 % Basophils % (Manual) 1.7 % Neutrophils # (Manual) 0.00 K/uL Total Absolute Neutrophils 0.00 K/uL Lymphocytes # (Manual) 0.71 K/uL Absolute Variant Lymphocytes 0.16 K/uL Total Absolute Lymphocytes 0.87 K/uL Monocytes # (Manual) 0.02 K/uL Eosinophils # (Manual) 0.07 K/uL Basophils # (Manual) 0.02 K/uL Large Platelets 1+ Spherocytes 1+ Sodium Level 140 mmol/L Potassium Level 4.2 mmol/L Chloride Level 104 mmol/L Carbon Dioxide Level 22 mmol/L Anion Gap 14.0 mmol/L Blood Urea Nitrogen 72 mg/dl Creatinine 3.70 mg/dl Estimated GFR () 18.1 Estimated GFR (Non- 15.6 BUN/Creatinine Ratio 19.4 Random Glucose 221 mg/dl Calcium Level 7.9 mg/dl Hepatitis C Antibody Screen NEG Bedside Glucose 216 mg/dl 195 mg/dl Urine Color YELLOW Urine Appearance CLEAR Urine pH 5.0 Urine Specific [place] 1.020 Urine Protein TRACE Urine Glucose (UA) TRACE Urine Ketones NEG Urine Occult Blood 1+ Urine Nitrite NEG Urine Bilirubin NEG Urine Urobilinogen NEG Urine Leukocyte Esterase NEG Urine RBC 0-4 /hpf Urine WBC 1-5 /hpf Urine Epithelial Cells 10-20 /lpf Urine Bacteria NEG Urine Random Creatinine 95.0 mg/dl Urine Random Sodium 66 mEq/L Test 03/28/16 23:27 03/29/16 04:04 03/29/16 05:25 03/29/16 07:36 Bedside Glucose 180 mg/dl 174 mg/dl 135 mg/dl White Blood Count 1.07 K/uL Red Blood Count 4.08 M/uL Hemoglobin 11.7 g/dL Hematocrit 34.4 % Mean Corpuscular Volume 84.3 fL Mean Corpuscular Hemoglobin 28.7 pg Mean Corpuscular Hemoglobin Concent 34.0 g/dl Platelet Count 9 K/uL RDW Standard Deviation 38.8 fL RDW Coefficient of Variation 12.7 % Neutrophils % (Manual) 0.9 % Lymphocytes % (Manual) 73.0 % Variant Lymphocytes % (manual) 12.1 % Monocytes % (Manual) 3.7 % Eosinophils % (Manual) 10.3 % Neutrophils # (Manual) 0.01 K/uL Total Absolute Neutrophils 0.01 K/uL Lymphocytes # (Manual) 0.78 K/uL Absolute Variant Lymphocytes 0.13 K/uL Total Absolute Lymphocytes 0.91 K/uL Monocytes # (Manual) 0.04 K/uL Eosinophils # (Manual) 0.11 K/uL Platelet Estimate SIGNIFIC DECREASED Red Blood Cell Morphology Unremarkable Sodium Level 142 mmol/L Potassium Level 3.7 mmol/L Chloride Level 108 mmol/L Carbon Dioxide Level 21 mmol/L Anion Gap 13.0 mmol/L Blood Urea Nitrogen 70 mg/dl Creatinine 3.50 mg/dl Est Creatinine Clear Calc Drug Dose 24.1 ml/min Estimated GFR () 19.3 Estimated GFR (Non- 16.7 BUN/Creatinine Ratio 20.1 Random Glucose 167 mg/dl Calcium Level 7.8 mg/dl Magnesium Level 1.1 mg/dl Assessment & Plan Mr. Murray is doing ok. His WBCs are up slightly, though I would continue the Neupogen daily until his ANC returns to normal. His platelet count remains under 10K and I would consider a platelet transfusion, as he is at risk for spontaneous hemorrhage at this platelet level. Otherwise, his counts should continue to improve. We discussed the importance of aggressive hydration at home , to prevent another episode like this one. He will also need Neulasta with future cycles and may also require a dose-reduction for his future cycles.
[2016-03-29] MEDS ORDERED: NURSING VERBAL MED ORDER ONE ×3 (10:00→14:15)
--- NOTE | 2016-03-29 10:42 | Pharmacy Progress Note ---
Glycemic Control: Progress Nt Date of Service Mar 29, 2016. Scope Glycemic Pharmacist consulted by Dr Bishop on 03/28/16 for glycemic control and to write orders per [facility] inpatient glycemic control protocol. Objective Accuchecks BSG (last 24hrs): Test 03/28/16 14:57 03/28/16 16:39 03/28/16 19:52 03/28/16 23:27 Random Glucose 221 mg/dl (70-99) Bedside Glucose 216 mg/dl (70-99) 195 mg/dl (70-99) 180 mg/dl (70-99) Test 03/29/16 04:04 03/29/16 05:25 03/29/16 07:36 Bedside Glucose 174 mg/dl (70-99) 135 mg/dl (70-99) Random Glucose 167 mg/dl (70-99) Laboratory Data (last 24hrs) Test 03/28/16 14:57 03/29/16 05:25 Anion Gap 14.0 mmol/L 13.0 mmol/L BUN/Creatinine Ratio 19.4 20.1 Blood Urea Nitrogen 72 mg/dl 70 mg/dl Creatinine 3.70 mg/dl 3.50 mg/dl Potassium Level 4.2 mmol/L 3.7 mmol/L Sodium Level 140 mmol/L 142 mmol/L White Blood Count 0.97 K/uL 1.07 K/uL Red Blood Count 4.33 M/uL 4.08 M/uL Hemoglobin 12.4 g/dL 11.7 g/dL Hematocrit 36.0 % 34.4 % Mean Corpuscular Volume 83.1 fL 84.3 fL Mean Corpuscular Hemoglobin 28.6 pg 28.7 pg Mean Corpuscular Hemoglobin Concent 34.4 g/dl 34.0 g/dl Platelet Count 8 K/uL 9 K/uL Mean Platelet Volume 11.2 fL HbA1c: 8.8% 01/2016 Recent Pertinent Medications Outpatient Anti-diabetic Regimen: * Concentrated U-500 Regular insulin 0.22mL (drawn up in a 1 mL syringe) BID * This equates to 110 units of Regular U-100 insulin SQ BID * Or, a total daily dose of 220 units SQ of Regular U-100 insulin The patient is currently receiving: * Basal insulin: Lantus 20 units SQ x 1 then re-evaluate dosing based on BSG trends * Correctional Insulin: Novolog Correction per scale ACHS Goal Range: Low 120 mg/dL - High 160 mg/dL Correction Factor: 20 mg/dL/unit * Prandial insulin: Per carb ratio of 1 unit per 7 grams CHO consumed Risk Factors for Insulin Resistance: * Infection * Diet Assessment & Plan ASSESSMENT: * 70yo T2DM male with severe baseline insulin resistance as patient uses 200+ units of insulin per day as an outpatient with near-adequate degree of outpatient control. Goal A1c is ~ 8.5% based on age and co-morbidities. Unsure how reliable recent A1c is with pt significant anemia and altered RBC turnover rate. * Typically, patient's maintained on U-500 regular insulin require significantly less insulin while admitted - weight based dosing was used instead of converting outpatient dosing to inpatient dosing. * BSGs 195 - 180- 174- 167 -135 overnight with 20 units of basal insulin given. * Pt not consuming many CHO at meals (10-14g/meal) * Concern for future hypo d/t decreased PO intake --> will continue 20 units of basal insulin but split dosing to 10 units SQ BID to more easily titrate dosing. * ADA & AACE recommend a goal blood sugar range 140-180 mg/dl for the majority of critically ill & non-critically ill patients. However, more stringent targets may be selected in individual cases. Will utilize more stringent target of 120-160mg/dl based on age and degree of outpatient control. PLAN FOR INPATIENT GLYCEMIC CONTROL: * Holding outpatient U-500 regular insulin --> most likely may resume at discharge * Decrease/change Basal insulin with Lantus to 10 units SQ BID * Continue Correctional Insulin with NOVOLOG per scale ACHS or Q6hrs while NPO. May consider RTC/overnight checks + coverage if BSGs start trending upwards today with reduced basal insulin dosing. * Goal Range: Low 120 mg/dL - High 160 mg/dL * Correction Factor: 20 mg/dL/unit * Nutritional / Prandial insulin per carb ratio of 1 unit per 7 grams CHO consumed * Please note that the plan above was derived based on current level of insulin resistance and hospital stress. These recommendations are appropriate for inpatient admission only. Plan of care upon discharge will need to be reassessed to avoid potential outpatient hypo/hyperglycemia. Thank you.
[2016-03-29] MEDS: MAGNESIUM SULFATE 1GM / D5W 1 GM in PREMIXED IN D5W 100 ML IV SCH ×2 (11:09→13:55)
--- NOTE | 2016-03-29 12:03 | Clinical Documentation Query ---
CLINICAL DOCUMENTATION QUERY Dr. CELAYA, In your clinical opinion is this patient being managed for: (x ) Pancytopenia due to Antineoplastic chemotherapy ( ) Other explanation of clinical findings (Please Explain) ( ) Unable to determine (Please Define) ( ) Need to Discuss ( ) Not Agree The medical record reflects the following clinical findings, treatment, and risk factors. Clinical Indicators: 70 yo male presenting with BERNADETTE and neutropenia. WBC 0.97, Hgb 12.4, Hct 36, plts 8 at time of presentation. Treatment: hem/onc consult, daily neupogen, transfuse 1U platelets, CBC monitoring, neutropenic precautions. Risk Factors: current chemotherapy treatments Please clarify and document your clinical opinion in the progress notes and discharge summary. Terms such as "probable", "suspected", "likely", "questionable", "possible", or "still to be ruled out" are acceptable. IF IN AGREEMENT, YOU MUST DOCUMENT ABOVE DIAGNOSTIC STATEMENT IN DAILY PROGRESS NOTES AND DISCHARGE SUMMARY. This document is not part of the patient's record. Thank You, Marla Garcia, JAMIE [phone]
--- NOTE | 2016-03-29 12:05 | Clinical Documentation Query ---
CLINICAL DOCUMENTATION QUERY Ms. CHRISTIANSON, In your clinical opinion is this patient being managed for: ( X ) Pancytopenia due to Antineoplastic chemotherapy ( ) Other explanation of clinical findings (Please Explain) ( ) Unable to determine (Please Define) ( ) Need to Discuss ( ) Not Agree The medical record reflects the following clinical findings, treatment, and risk factors. Clinical Indicators: 70 yo male presenting with BERNADETTE and neutropenia. WBC 0.97, Hgb 12.4, Hct 36, plts 8 at time of presentation. Treatment: hem/onc consult, daily neupogen, transfuse 1U platelets, CBC monitoring, neutropenic precautions. Risk Factors: current chemotherapy treatments Please clarify and document your clinical opinion in the progress notes and discharge summary. Terms such as "probable", "suspected", "likely", "questionable", "possible", or "still to be ruled out" are acceptable. IF IN AGREEMENT, YOU MUST DOCUMENT ABOVE DIAGNOSTIC STATEMENT IN DAILY PROGRESS NOTES AND DISCHARGE SUMMARY. This document is not part of the patient's record. Thank You, Marla Garcia, RN [phone]
[2016-03-29] MEDS: FILGRASTIM 480 MCG/1.6 ML VIAL SC SCH (12:08)
[2016-03-29] MEDS: HYDROCODONE/ACETAMOPHEN 5/325MG TAB PO PRN ×2 (12:37→20:42)
[2016-03-29] MEDS ORDERED: LOPERAMIDE HCL 2 MG CAP PO PRN (14:15)
[2016-03-29] MEDS ORDERED: LOPERAMIDE HCL 2 MG CAP PO ONE (14:15)
--- NOTE | 2016-03-29 15:17 | DIAGNOSTIC IMAGING REPORT ---
RENAL ULTRASOUND HISTORY: Acute on chronic kidney disease. Bladder cancer. COMPARISON: Abdomen and pelvis CT 02/23/2016. FINDINGS: Right kidney: 10.8 cm. No hydronephrosis. Normal corticomedullary differentiation and cortical thickness. Suspect a 5 mm nonobstructing stone. There is a 1.1 cm exophytic cyst within the lower pole. Left kidney: 11.0 cm. No hydronephrosis. Normal corticomedullary differentiation and cortical thickness. Bladder: The bladder is now well-distended. No bladder wall thickening. The bilateral ureteral jets were identified. IMPRESSION: 1. No hydronephrosis. 2. Right-sided nephrolithiasis. Electronically signed by: Chicho Powell M.D. 03/29/2016 3:15 PM Dictated Date/Time: 03/29/2016 3:12 PM
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
[2016-03-29] MEDS ORDERED: CEFEPIME CONSULT ACTIVE PRN ×2 (16:15)
[2016-03-29] MEDS ORDERED: CEFEPIME IV 2000 MG in DEXTROSE 5% 100ML IV SCH (17:00)
[2016-03-29] MEDS: ATORVASTATIN 40 MG TAB PO SCH (20:41)
[2016-03-29] MEDS: INSULIN GLARGINE SOLOSTAR 100 UNITS/ML 3 ML PEN SC SCH (20:47)
[2016-03-29] MEDS: ZOLPIDEM TARTRATE 5 MG TAB PO PRN (23:53)
[2016-03-30 03:45] VITALS: BP 114/71; PULSE 68; TEMP 36.8; O2SAT 94
[2016-03-30] MEDS: INSULIN ASPART 100 UNITS/ML 3 ML PEN SC SCH ×5 (04:00→21:00)
[2016-03-30 06:03] VITALS: BMI 37.0
[2016-03-30 06:52] LABS: BUN/CREATININE RATIO 17.7 (10-20); CALCIUM 8.1 mg/dl (8.5-10.1); CREATININE 3.2 mg/dl (0.60-1.40); POTASSIUM 3.7 mmol/L (3.5-5.1)
[2016-03-30 06:54] VITALS: BP 148/81; PULSE 71; TEMP 37.2; O2SAT 96
[2016-03-30] MEDS: HYDROCODONE/ACETAMOPHEN 5/325MG TAB PO PRN ×3 (07:04→21:13)
[2016-03-30 07:27] LABS: HEMATOCRIT 34.1 % (42-52); MEAN CELL VOLUME 83.6 fL (80-100); MEAN CORPUSCULAR HEMOGLOBIN 28.2 pg (25-34); MEAN CORPUSCULAR HGB CONC 33.7 g/dl (32-36); MEAN PLATELET VOLUME 11.9 fL (7.4-10.4); PLATELET COUNT 19 K/uL (130-400); PLT ESTIMATE SIGNIFIC DECREASED; RED BLOOD COUNT 4.08 M/uL (4.7-6.1)
[2016-03-30] MEDS ORDERED: COUGH DROP (SUGAR FREE) LOZ 24 LOZ/1 BOX ONE (07:43)
[2016-03-30] MEDS: ONDANSETRON INJ 2 MG/ML 2 ML VIAL IV PRN ×2 (07:51→17:33)
[2016-03-30] MEDS: INSULIN GLARGINE SOLOSTAR 100 UNITS/ML 3 ML PEN SC SCH ×2 (08:00→21:15)
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
[2016-03-30 08:12] VITALS: BP 162/83; PULSE 71; TEMP 36.7; O2SAT 95
[2016-03-30] MEDS: PANTOprazole SOD 40 MG TAB PO SCH (08:23)
[2016-03-30] MEDS: METOPROLOL TARTRATE 25 MG TAB PO SCH ×2 (08:23→21:12)
[2016-03-30] MEDS: FILGRASTIM 480 MCG/1.6 ML VIAL SC SCH (08:31)
[2016-03-30] MEDS: SODIUM CHLORIDE 0.9% 1000ML 1,000 ML IV SCH (09:33)
--- NOTE | 2016-03-30 09:47 | Nephrology Progress Note ---
Nephrology Progress Note Date of Service Mar 30, 2016. Chief Complaint Evaluation of acute on chronic kidney injury Subjective Mr. Forrester was seen & examined in his hospital room this morning. He reports that he is subjectively improved this morning. He has had no chills overnight. He is tolerating his diet. His diarrhea has improved. He voices no new medical concerns at this time. Review of Systems Constitutional: No fever Cardiovascular: No chest pain Respiratory: No dyspnea at rest Abdomen: No nausea, No pain, No vomiting Extremities: No leg edema A complete review of systems was performed. Pertinent positives are noted above. All other systems are negative. Vital Signs Last 8 Hrs Date Time Temp Pulse Resp B/P Pulse Ox O2 Delivery O2 Flow Rate FiO2 03/30/16 08:12 36.7 71 16 162/83 95 Room Air 03/30/16 06:54 37.2 71 18 148/81 96 Room Air 03/30/16 03:45 36.8 68 18 114/71 94 Room Air I & O 24-Hour Column 03/30/16 07:59 Intake Total 2671 ml Output Total 1150 ml Balance 1521 ml Last Recorded Weight Weight (Kilograms): 113.600 Physical Exam General Appearance: no apparent distress Head: normocephalic, atraumatic Eyes: PERRL, EOMI Neck: no adenopathy Respiratory/Chest: lungs clear, no respiratory distress Cardiovascular: regular rate, rhythm Abdomen/GI: normal bowel sounds, non tender, soft Extremities/Musculoskelatal: no calf tenderness, no pedal edema Neurologic/Psych: alert, oriented x 3 Family History Heart disease Hypertension Negative for CKD/ESRD Social History Marital Status: Occupation: retired . Retired. Never a smoker Laboratory Results Past 24 Hours 03/30/16 05:18 03/30/16 05:18 Test 03/29/16 11:32 03/29/16 16:26 03/29/16 20:11 03/29/16 23:52 Bedside Glucose 208 mg/dl (70-99) 149 mg/dl (70-99) 146 mg/dl (70-99) 109 mg/dl (70-99) Test 03/30/16 00:05 03/30/16 03:58 03/30/16 05:18 03/30/16 07:43 Bedside Glucose 107 mg/dl (70-99) 95 mg/dl (70-99) 103 mg/dl (70-99) Red Blood Count 4.08 M/uL (4.7-6.1) Mean Corpuscular Volume 83.6 fL (80-100) Mean Corpuscular Hemoglobin 28.2 pg (25-34) Mean Corpuscular Hemoglobin Concent 33.7 g/dl (32-36) RDW Standard Deviation 38.2 fL (36.4-46.3) RDW Coefficient of Variation 12.5 % (11.5-14.5) Mean Platelet Volume 11.9 fL (7.4-10.4) Platelet Estimate SIGNIFIC DECREASED Anion Gap 12.0 mmol/L (3-11) Est Creatinine Clear Calc Drug Dose 26.7 ml/min Estimated GFR () 21.6 Estimated GFR (Non- 18.6 BUN/Creatinine Ratio 17.7 (10-20) Calcium Level 8.1 mg/dl (8.5-10.1) Date/Time Source Procedure Growth Status 03/29/16 11:05 Stool C.difficile Toxin B Gene (PCR) - Final No C. difficile toxin B gene detected Complete Allergies Coded Allergies: No Known Allergies (Verified , 02/24/16) Medications Current Inpatient Medications Medications (Trade) Dose Ordered Sig/Reese Route Start Time Stop Time Status Last Admin Dose Admin Acetaminophen (Tylenol Tab) 650 mg Q4H PRN PO 03/28/16 14:30 04/27/16 14:29 Ondansetron HCl (Zofran Inj) 4 mg Q6H PRN IV 03/28/16 14:30 04/27/16 14:29 03/30/16 07:51 4 MG Atorvastatin Calcium (Lipitor Tab) 40 mg HS PO 03/28/16 21:00 04/27/16 20:59 03/29/16 20:41 40 MG Acetaminophen/ Hydrocodone Bitart ([place] 5/325 Tab) 1 tab Q6H PRN PO 03/28/16 14:45 04/11/16 14:44 03/30/16 07:04 1 TAB Metoprolol Tartrate (Lopressor Tab) 25 mg BID PO 03/28/16 20:00 04/27/16 19:59 03/30/16 08:23 25 MG Pantoprazole Sodium (Protonix Tab) 40 mg QAM PO 03/29/16 08:00 04/28/16 07:59 03/30/16 08:23 40 MG Glucose (Glucose 40% Gel) 15-30 GRAMS 15 GRAMS... UD PRN PO 03/28/16 15:30 04/27/16 15:29 Glucose (Glucose Chew Tab) 4-8 Tablets 4 Tabl... UD PRN PO 03/28/16 15:30 04/27/16 15:29 Dextrose (Dextrose 50% 50ML Syringe) 25-50ML OF 50% DW IV FOR... UD PRN IV 03/28/16 15:30 04/27/16 15:29 Glucagon 1 mg 1 mg UD PRN SQ 03/28/16 15:30 04/27/16 15:29 Sodium Chloride (Nss 1000ml) 1,000 ml @ 100 mls/hr Q10H IV 03/28/16 16:15 04/27/16 16:14 03/29/16 22:43 100 MLS/HR Insulin Aspart (novoLOG ASPART) SLIDING SCALE G... ACHS SC 03/28/16 16:30 04/27/16 16:29 03/29/16 13:05 5 UNITS Miscellaneous Information (Consult Glycemic Management Pharmacy) 1 ea UD PRN N/A 03/28/16 19:33 04/27/16 19:32 Zolpidem Tartrate (Ambien Tab) 5 mg HS PRN PO 03/28/16 23:15 04/27/16 23:14 03/29/16 23:53 5 MG Filgrastim (Neupogen Sq) 480 mcg DAILY SC 03/29/16 11:00 04/28/16 10:59 03/30/16 08:31 480 MCG Loperamide HCl (Imodium Cap) 2 mg Q8H PRN PO 03/29/16 14:15 04/28/16 14:14 Insulin Glargine (Lantus Solostar Pen) see protocol text BID SC 03/29/16 20:00 04/28/16 19:59 03/30/16 08:00 5 UNIT Cefepime HCl 1 ea 1 ea UD PRN N/A 03/29/16 16:15 04/28/16 16:14 Cefepime HCl/ Dextrose (Maxipime IV/D5 100ml) 112.5 ml @ 225 mls/hr Q24H IV 03/29/16 17:00 03/30/16 16:14 03/29/16 17:08 225 MLS/HR Impression (1) Small cell carcinoma of bladder (2) Acute kidney injury (3) Chronic kidney disease, stage 3 (moderate) (4) Hypertension (5) Diarrhea 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 PET scan 03/02 was negative for metastatic disease. He was treated w/ Etoposide and Cisplatin 03/16/16. He developed diarrhea, poor oral intake and continued his MIGUE inhibitor and thiazide diuretic. He is now admitted with BERNADETTE and dehydration. Recommendations ACUTE KIDNEY INJURY: -- Hold Lisinopril and HCTZ until kidney function normalizes -- Urinalysis shows only trace protein. No blood. Although the patient has glucosuria, he also has mild hyperglycemia. -- Renal US report was negative for hydronephrosis. There is a 5 mm right kidney stone. -- Continue gentle hydration w/ 0.9 NS -- Monitor PRP CHRONIC KIDNEY DISEASE: -- Baseline creatinine 1.6 - 1.8 ID: -- Agree w/ neupogen administration to correct neutropenia -- Blood cultures are negative. Stool is negative for clostridium difficile toxin. Urine culture was positive for low number of strep. Patient is on Cefipime therapy
--- NOTE | 2016-03-30 10:49 | Hematology/Oncology Prog Note ---
Hematology/Onc Progress Note Date of Service Mar 30, 2016. Diagnoses Small cell bladder cancer BERNADETTE Neutropenia Medications Medications Administered Medications (Trade) Dose Ordered Sig/Reese Route Start Time Stop Time Status Last Admin Dose Admin Ondansetron HCl (Zofran Inj) 4 mg Q6H PRN IV 03/28/16 14:30 04/27/16 14:29 03/30/16 07:51 4 MG Atorvastatin Calcium (Lipitor Tab) 40 mg HS PO 03/28/16 21:00 04/27/16 20:59 03/29/16 20:41 40 MG Acetaminophen/ Hydrocodone Bitart ([place] 5/325 Tab) 1 tab Q6H PRN PO 03/28/16 14:45 04/11/16 14:44 03/30/16 07:04 1 TAB Metoprolol Tartrate (Lopressor Tab) 25 mg BID PO 03/28/16 20:00 04/27/16 19:59 03/30/16 08:23 25 MG Pantoprazole Sodium 40 mg 40 mg QAM PO 03/29/16 08:00 04/28/16 07:59 03/30/16 08:23 40 MG Sodium Chloride 1,000 ml @ 100 mls/hr Q10H IV 03/28/16 16:15 04/27/16 16:14 03/30/16 09:33 100 MLS/HR Cefepime HCl/ Dextrose (Maxipime IV/D5 100ml) 111.3 ml @ 200 mls/hr Q24H IV 03/28/16 17:00 03/29/16 16:22 DC 03/28/16 17:54 200 MLS/HR Filgrastim (Neupogen Sq) 480 mcg ONE ONCE SC 03/28/16 17:00 03/28/16 17:01 DC 03/28/16 17:55 480 MCG Insulin Aspart (novoLOG ASPART) SLIDING SCALE G... ACHS SC 03/28/16 16:30 04/27/16 16:29 03/29/16 13:05 5 UNITS Insulin Glargine (Lantus Solostar Pen) 20 unit TODAY@2100 SC 03/28/16 21:00 03/28/16 22:00 DC 03/28/16 20:57 20 UNIT Insulin Aspart (novoLOG ASPART) SLIDING SCALE G... 0000,0400 SC 03/29/16 00:00 03/30/16 08:16 DC 03/29/16 04:06 1 UNITS Zolpidem Tartrate (Ambien Tab) 5 mg HS PRN PO 03/28/16 23:15 04/27/16 23:14 03/29/16 23:53 5 MG Insulin Glargine 10 unit 10 unit BID SC 03/29/16 08:00 03/29/16 14:48 DC 03/29/16 08:26 10 UNIT Magnesium Sulfate/ Prmx (Magnesium Sulfate/Premixed D5W) 100 ml @ 100 mls/hr Q1H IV 03/29/16 10:30 03/29/16 12:29 DC 03/29/16 13:55 100 MLS/HR Filgrastim (Neupogen Sq) 480 mcg DAILY SC 03/29/16 11:00 04/28/16 10:59 03/30/16 08:31 480 MCG Loperamide HCl (Imodium Cap) 4 mg 1415 ONCE PO 03/29/16 14:15 03/29/16 14:16 DC 03/29/16 14:18 4 MG Insulin Glargine see protocol text BID SC 03/29/16 20:00 04/28/16 19:59 03/30/16 08:00 5 UNIT Cefepime HCl/ Dextrose (Maxipime IV/D5 100ml) 112.5 ml @ 225 mls/hr Q24H IV 03/29/16 17:00 03/30/16 16:14 03/29/16 17:08 225 MLS/HR Menthol ([place]) 24 jose STK-MED ONCE .ROUTE 03/30/16 07:43 03/30/16 07:46 DC 03/30/16 07:48 24 JOSE Subjective Mr. Forrester feels about the same as yesterday. He denies nausea or vomiting, fevers, chills, hematuria, or bleeding elsewhere. Review of Systems: Constitutional: No chills, No fever Eyes: No worsening of vision ENT: No unusual epistaxis Respiratory: No cough, No hemoptysis, No shortness of breath Cardiovascular: No chest pain, No edema Abdomen: No GI bleeding, No nausea, No pain, No vomiting Musculoskeletal: No joint pain, No muscle pain Male : No dysuria, No hematuria Neurologic: No numbness/tingling, No weakness Heme: No abnormal bleeding/bruising Skin: No bleeding, No rash Vital Signs Vital Signs Past 12 Hours Date Time Temp Pulse Resp B/P Pulse Ox O2 Delivery O2 Flow Rate FiO2 03/30/16 09:47 Room Air 03/30/16 08:12 36.7 71 16 162/83 95 Room Air 03/30/16 06:54 37.2 71 18 148/81 96 Room Air 03/30/16 03:45 36.8 68 18 114/71 94 Room Air 03/30/16 00:05 Room Air 03/29/16 23:55 36.8 64 18 136/73 97 Room Air Physical Exam Constitutional: General Apperance: obese Level of Distress: NAD Psychiatric: Mental Status: active & alert Orientation: oriented except where noted, to time, to place, to person Eyes: EOM: EOMI Lungs: Respiratory Effort: no dyspnea Auscuitation: CTA except as noted Cardiovascular: Heart Auscultation: RRR, no murmurs Abdomen: Inspection & Palpation: soft, no tenderness, guarding & rebound Extremities: no edema Neurologic: Cranial Nerves: grossly intact Laboratory Last 24 Hours Test 03/29/16 11:32 03/29/16 16:26 03/29/16 20:11 03/29/16 23:52 Bedside Glucose 208 mg/dl 149 mg/dl 146 mg/dl 109 mg/dl Test 03/30/16 00:05 03/30/16 03:58 03/30/16 05:18 03/30/16 07:43 Bedside Glucose 107 mg/dl 95 mg/dl 103 mg/dl White Blood Count 1.40 K/uL Red Blood Count 4.08 M/uL Hemoglobin 11.5 g/dL Hematocrit 34.1 % Mean Corpuscular Volume 83.6 fL Mean Corpuscular Hemoglobin 28.2 pg Mean Corpuscular Hemoglobin Concent 33.7 g/dl RDW Standard Deviation 38.2 fL RDW Coefficient of Variation 12.5 % Platelet Count 19 K/uL Mean Platelet Volume 11.9 fL Platelet Estimate SIGNIFIC DECREASED Sodium Level 145 mmol/L Potassium Level 3.7 mmol/L Chloride Level 110 mmol/L Carbon Dioxide Level 23 mmol/L Anion Gap 12.0 mmol/L Blood Urea Nitrogen 56 mg/dl Creatinine 3.20 mg/dl Est Creatinine Clear Calc Drug Dose 26.7 ml/min Estimated GFR () 21.6 Estimated GFR (Non- 18.6 BUN/Creatinine Ratio 17.7 Random Glucose 113 mg/dl Calcium Level 8.1 mg/dl Assessment & Plan Mr. Murray is doing ok. His WBCs are up again today, though modestly so. I would continue the Neupogen daily for now. His platelet count is 19K today. I would only consider platelet transfusion for bleeding at this point. Otherwise, his counts should continue to improve. His renal function is also improving, though slowly. As noted before, we will need to make some adjustments to his treatment regimen if he continues with chemotherapy, but we can discuss these issues as an outpatient.
[2016-03-30 11:12] VITALS: BP 136/79; PULSE 64; TEMP 36.6; O2SAT 94
[2016-03-30] MEDS ORDERED: NURSING VERBAL MED ORDER ONE (12:15)
[2016-03-30] MEDS ORDERED: AUGMENTIN - PHARMACY CONSULT IN PROGRESS PRN (12:15)
--- NOTE | 2016-03-30 12:19 | Pharmacy Progress Note ---
Glycemic Control: Progress Nt Date of Service Mar 30, 2016. Scope Glycemic Pharmacist consulted by Dr Bishop on 03/28/16 for glycemic control and to write orders per [facility] inpatient glycemic control protocol. Objective Accuchecks BSG (last 24hrs): Test 03/29/16 16:26 03/29/16 20:11 03/29/16 23:52 03/30/16 00:05 Bedside Glucose 149 mg/dl (70-99) 146 mg/dl (70-99) 109 mg/dl (70-99) 107 mg/dl (70-99) Test 03/30/16 03:58 03/30/16 05:18 03/30/16 07:43 03/30/16 11:38 Bedside Glucose 95 mg/dl (70-99) 103 mg/dl (70-99) 126 mg/dl (70-99) Random Glucose 113 mg/dl (70-99) Laboratory Data (last 24hrs) Test 03/30/16 05:18 Anion Gap 12.0 mmol/L BUN/Creatinine Ratio 17.7 Blood Urea Nitrogen 56 mg/dl Creatinine 3.20 mg/dl Potassium Level 3.7 mmol/L Sodium Level 145 mmol/L White Blood Count 1.40 K/uL HbA1c: 8.8% on 01/2016 Recent Pertinent Medications Outpatient Anti-diabetic Regimen: * Concentrated U-500 Regular insulin 0.22mL (drawn up in a 1 mL syringe) BID * This equates to 110 units of Regular U-100 insulin SQ BID * Or, a total daily dose of 220 units SQ of Regular U-100 insulin The patient is currently receiving: * Basal insulin: Lantus SQ BID based on BSG * If BSG below 120mg/dl --> Give Lantus 5 units * If BSG 120 - 179mg/dl --> Give Lantus 15 units * If BSG 180mg/dl or above --> Give Lantus 20 units * Correctional Insulin: Novolog Correction per scale ACHS Goal Range: Low 120 mg/dL - High 160 mg/dL Correction Factor: 20 mg/dL/unit * Prandial insulin: Per carb ratio of 1 unit per 7 grams CHO consumed Risk Factors for Insulin Resistance: * Infection * Diet Assessment & Plan ASSESSMENT: * 70yo T2DM male with severe baseline insulin resistance as patient uses 200+ units of insulin per day as an outpatient with near-adequate degree of outpatient control. Goal A1c is ~ 8.5% based on age and co-morbidities. Unsure how reliable recent A1c is with pt significant anemia and altered RBC turnover rate. * Typically, patient's maintained on U-500 regular insulin require significantly less insulin while admitted - weight based dosing was used instead of converting outpatient dosing to inpatient dosing. * Pt has received 33 units of insulin over the past 24hrs * BSGs [phone] * Glycemic control adequate with current total daily dose of insulin * PO intake is very minimal - most of regimen is basal insulin d/t no CHO coverage given. * Will continue range based basal insulin dosing per BSG to help prevent hypo/ hyperglycemia with changing factors affecting insulin needs * ADA & AACE recommend a goal blood sugar range 140-180 mg/dl for the majority of critically ill & non-critically ill patients. However, more stringent targets may be selected in individual cases. Will utilize more stringent target of 120-160mg/dl based on age and degree of outpatient control. PLAN FOR INPATIENT GLYCEMIC CONTROL: * Holding outpatient U-500 regular insulin --> most likely may resume at discharge * Basal insulin with Lantus SQ BID * If BSG below 120mg/dl --> Give Lantus 5 units * If BSG 120 - 179mg/dl --> Give Lantus 15 units * If BSG 180mg/dl or above --> Give Lantus 20 units * Continue Correctional Insulin with NOVOLOG per scale ACHS or Q6hrs while NPO. * Goal Range: Low 120 mg/dL - High 160 mg/dL * Correction Factor: 20 mg/dL/unit * Nutritional / Prandial insulin per carb ratio of 1 unit per 7 grams CHO consumed * Please note that the plan above was derived based on current level of insulin resistance and hospital stress. These recommendations are appropriate for inpatient admission only. Plan of care upon discharge will need to be reassessed to avoid potential outpatient hypo/hyperglycemia. Thank you.
[2016-03-30 16:06] VITALS: BP 158/84; PULSE 62; TEMP 36.9; O2SAT 95
[2016-03-30] MEDS: AMOXICILLIN/CLAVULANATE TAB 500 MG TAB PO SCH (18:25)
[2016-03-30 19:25] VITALS: BP 152/83; PULSE 70; TEMP 36.8; O2SAT 97
[2016-03-30] MEDS: ATORVASTATIN 40 MG TAB PO SCH (21:12)
[2016-03-30] MEDS: ZOLPIDEM TARTRATE 5 MG TAB PO PRN (21:13)
[2016-03-31] VITALS (10 sets, daily range): BP systolic 145–178; BP diastolic 69–84; PULSE 62–72; TEMP 36.6–37.1; O2SAT 93–98; BMI 37.3
[2016-03-31] MEDS: ONDANSETRON INJ 2 MG/ML 2 ML VIAL IV PRN (01:08)
[2016-03-31] MEDS ORDERED: NITROGLYCERIN 0.4 MG SL PER TAB CHARGE ONE (05:38)
[2016-03-31] MEDS ORDERED: ASPIRIN 81 MG CHEW PO STA (05:39)
[2016-03-31] MEDS ORDERED: NITROGLYCERIN 0.4 MG SL PER TAB CHARGE SL PRN (05:45)
--- NOTE | 2016-03-31 05:50 | Progress Note ---
Progress Note I was paged at approximately 05: 30. Patient was noted to be having chest pain. I give the following instructions prior to my arrival: Obtain vitals, obtain EKG I arrived at the to the bedside to assess the patient: SUBJECTIVE: Patient complains of sternal chest pain, combination of sharp and heaviness lasting for the past 5 minutes. No radiation to the jaw or arms. Some discomfort in the back. Rates the pain initially as an 8/10 but after a minute diminished to 6/10. Notes being slightly short of breath. Does not feel the need to cough. Denies palpitations. Denies orthopnea. His lightheadedness or dizziness. He notes previous history of NE with CABG. Symptoms now not reminiscent of when he had his NE. OBJECTIVE: Item Value Date Time Oxygen Delivery Method Room Air 03/31/16 0530 Vital Signs Label Value Date Time Bedside Pulse Oximetry 97 % 03/31/16 0530 Blood Pressure Assessment 166/80 03/31/16 0530 Location Left Arm Source NIBP Position Supine Respiratory Rate 20 03/31/16 0530 Pulse 68 03/31/16 0530 Location Left Brachial Patient Temperature 37.0 C. 03/31/16 0530 Temperature Source Oral 03/31/16 0530 Gen. inspection: Patient lying flat, no distress, able to converse without difficulty Cardiac: S1 and S2 with no added sounds or murmurs. Respiratory: Vesicular breath sounds bilaterally. No wheezing or crackles. Extremities: No pedal edema or calf tenderness EKG: Sinus rhythm ventricular rate 66 single premature supraventricular complex No pauses T-wave inversion in lead V2 and V3 No ST elevation noted EKG from 02/03/2016 obtained from all scripts; noted T wave inversions on current EKG new findings. ASSESSMENT/PLAN: 70year-old male with documented coronary artery disease, with sudden onset anginal symptoms. 0.4 mg sublingual nitroglycerin was administered at the bedside. Patient notes that his pain had diminished thereafter to nearly 0. This would qualify his type of pain is classic for angina Suspect at this time he may have unstable angina versus evolving myocardial infarction The plan is as follows: - ASA 324 mg PO chew STAT - 0.4 mg nitroglycerin when necessary for chest pain - We'll obtain initial set of cardiac enzymes, and trend accordingly - Portable chest x-ray; report is pending - Given that he is high risk, we'll start a heparin drip with bolus. - Patient to be transferred to telemetry for cardiac monitoring - I will place cardiology consult at this time
[2016-03-31 06:14] LABS: HEMATOCRIT 33.1 % (42-52); MEAN CELL VOLUME 84.9 fL (80-100); MEAN CORPUSCULAR HGB CONC 34.1 g/dl (32-36); MEAN PLATELET VOLUME 12.5 fL (7.4-10.4); PLATELET COUNT 31 K/uL (130-400); WHITE BLOOD COUNT 2.56 K/uL (4.8-10.8)
[2016-03-31 06:42] LABS: BUN/CREATININE RATIO 16.9 (10-20); CALCIUM 8.3 mg/dl (8.5-10.1); CREATININE 3.1 mg/dl (0.60-1.40); POTASSIUM 3.7 mmol/L (3.5-5.1)
[2016-03-31] MEDS ORDERED: HEPARIN IV BOLUS 7,000 UNIT in SYRINGE 0 ML IV ONE (06:45)
[2016-03-31] MEDS ORDERED: HEPARIN 25,000 UNIT/500ML D5W 500 ML IV PRN (06:45)
[2016-03-31 07:03] LABS: CKMB/CK RATIO 1.4 (0-3.0)
[2016-03-31 07:28] LABS: INR 1.2 (0.9-1.1); PARTIAL THROMBOPLASTIN RATIO 1.2; PROTHROMBIN TIME (PATIENT) 12.5 SECONDS (9.0-12.0)
--- NOTE | 2016-03-31 07:31 | Hospitalist Progress Note ---
Hospitalist Progress Note Date of Service Mar 31, 2016. Subjective Pt evaluation today including: conversation w/ patient, physical exam, chart review, lab review, review of studies, review of inpatient medication list Pain: None Voiding: no voiding problems The patient was seen and examined this morning. Pt reports chest pain earlier this morning around 5 am happened quickly and states "felt as though someone tramped on me". He had developed some low back pain right before the chest pain. He denies chest pain was from his back, and also denies radiation through his back, up to jaw, or into arms, sob, he admits to feeling a little nauseous at that time. Overnight team treated the patient with asa, nitro, and heparin gtt due to previous AK and CAD. The patient denies any current pain, cp , sob, difficulty breathing, lightheadedness, dizziness, change in vision, nausea, abd pain. Pt is being transferred to tele today and will ask Cards to see the pt. All Other Systems: Reviewed and Negative (other than HPI) Objective Vital Signs Date Time Temp Pulse Resp B/P Pulse Ox O2 Delivery O2 Flow Rate FiO2 03/31/16 05:47 67 20 178/84 94 Room Air 03/31/16 05:30 37.0 68 20 166/80 97 Room Air 03/31/16 02:55 36.9 63 18 145/77 97 Room Air 03/31/16 00:20 37.0 66 18 156/76 97 03/30/16 19:25 36.8 70 16 152/83 97 Room Air 03/30/16 16:06 36.9 62 16 158/84 95 Room Air 03/30/16 16:00 Room Air 03/30/16 11:12 36.6 64 16 136/79 94 Room Air 03/30/16 09:47 Room Air 03/30/16 08:12 36.7 71 16 162/83 95 Room Air 03/30/16 08:00 Room Air Physical Exam General Appearance: WD/WN, no apparent distress, + pertinent finding (shaved his hair off head) Eyes: PERRL, EOMI ENT: hearing grossly normal, pharynx normal Neck: supple, thyroid normal Respiratory/Chest: lungs clear, normal breath sounds, no respiratory distress, no accessory muscle use Cardiovascular: regular rate, rhythm (with occasional extra beats), + systolic murmur Abdomen: normal bowel sounds, non tender, soft Extremities: non-tender, no calf tenderness, + pedal edema (nonpitting 1+) Neurologic/Psychiatric: alert, normal mood/affect, oriented x 3 Skin: normal color, warm/dry Laboratory Results Last 24 Hours Test 03/30/16 07:43 03/30/16 11:38 03/30/16 16:48 03/30/16 20:33 Bedside Glucose 103 mg/dl 126 mg/dl 122 mg/dl 120 mg/dl Test 03/31/16 05:00 03/31/16 05:15 03/31/16 05:41 03/31/16 06:20 White Blood Count 2.56 K/uL Red Blood Count 3.90 M/uL Hemoglobin 11.3 g/dL Hematocrit 33.1 % Mean Corpuscular Volume 84.9 fL Mean Corpuscular Hemoglobin 29.0 pg Mean Corpuscular Hemoglobin Concent 34.1 g/dl RDW Standard Deviation 39.4 fL RDW Coefficient of Variation 12.8 % Platelet Count 31 K/uL Mean Platelet Volume 12.5 fL Sodium Level 143 mmol/L Potassium Level 3.7 mmol/L Chloride Level 109 mmol/L Carbon Dioxide Level 22 mmol/L Anion Gap 12.0 mmol/L Blood Urea Nitrogen 52 mg/dl Creatinine 3.10 mg/dl Est Creatinine Clear Calc Drug Dose 27.7 ml/min Estimated GFR () 22.4 Estimated GFR (Non- 19.3 BUN/Creatinine Ratio 16.9 Random Glucose 105 mg/dl Calcium Level 8.3 mg/dl Bedside Glucose 93 mg/dl Total Creatine Kinase 80 U/L Creatine Kinase MB 1.1 ng/ml Creatine Kinase MB Ratio 1.4 Troponin I 0.028 ng/ml Test 03/31/16 07:00 Assessment and Plan 70 yo male with 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 Hx of exposure to agent orange in [place]. Overnight developed chest pain - EKG showing new T wave inversions significant for ischemia, initial trop 0.028 , plan to trend x 2 more sets, nitro on prn, Cardiology consulted - Hx of previous AK with CAD, suggestive of cardiac etiology with pain relief with nitro and aspirin 325 mg - Was started on heparin gtt overnight, have stopped this currently due to the patient risk of bleed with decreased plt count and hx of hematuria with bladder cx currently undergoing antineoplastic therapy. Will speak with cardiology about anticoagulation. - Consider troponin bump possibly being influenced by BERNADETTE as well BERNADETTE on CKD stg III, secondary to Right sided nephrolithiasis: - Cr was 3.7 on admission, now down to 3.1 - Strict I/Os - Tolerating oral fluid intake, no IVFs overnight, may need to restart this. - urine sodium & urine creatinine both WNL - Started on augmentin strep UTI on 03/30 - consult nephrology- appreciate recs Renal US on 03/29: 1. No hydronephrosis. 2. Right-sided nephrolithiasis. UTI - UA slightly dirty, culture growing strepococcus, sensitivity to follow - Cont augmentin PO, day #2 Pancytopenia due to antineoplastic therapy, bladder cx: ANC is 0.1 after Neupogen injection, will need Neulasta as an outpatient per onc. - appreciate recs. - Will need daily neupogen injections for now - neutropenia precautions, received 3 days fo cefepime, will change to oral augmentin. - blood cultures no growth - CXR without acute pulmonary findings or active disease in the chest. Thrombocytopenia: related to chemo, follow with daily CBC, no bleeding or bruising currently -Now s/p 1 U platelets on 03/29 with plt count up continues to trend upward, PLT = 31, if below 10 would transfuse another unit. - Follow with am labs SCC Bladder: consult oncology- appreciate recs GERD: PPI DM II: basal insulin as well as Novolog coverage, diabetic diet DVT ppx: contraindicated, thrombocytopenia Disposition: From home, await cardiology input.
[2016-03-31 07:50] LABS: DOHLE BODIES 2+; LARGE PLATELETS 2+; PLT ESTIMATE SIGNIFIC DECREASED; TOXIC GRANULATION 2+
[2016-03-31 07:53] LABS: BASO ABS # 0.03 K/uL (0-0.2); BASOPHIL % 0.9 % (0-2); COMPLETE YES; EOSINOPHIL % 8.8 %; HEMATOCRIT 32.5 % (42-52); LYMPH ABS # 0.93 K/uL (1.2-3.4); LYMPHOCYTE % 32.4 %; MEAN CELL VOLUME 84.4 fL (80-100); MEAN CORPUSCULAR HEMOGLOBIN 28.8 pg (25-34); MEAN CORPUSCULAR HGB CONC 34.2 g/dl (32-36); MEAN PLATELET VOLUME 12.3 fL (7.4-10.4); MYELOCYTE % 0.9 %; NEUTROPHILS % 30.7 %; PLATELET COUNT 29 K/uL (130-400); RED BLOOD COUNT 3.85 M/uL (4.7-6.1); VARIANT LYM ABS # 0.35 K/uL; VARIANT LYMPHOCYTE % 12.3 %; WHITE BLOOD COUNT 2.87 K/uL (4.8-10.8)
--- NOTE | 2016-03-31 08:06 | DIAGNOSTIC IMAGING REPORT ---
CHEST ONE VIEW PORTABLE HISTORY: Atypical chest pain COMPARISON: Chest 03/28/2016. FINDINGS: No pneumothorax. No pleural effusions. Post anatomy changes. The heart is normal in size. Left-sided electrode stimulator device is again noted. No new focal lung consolidations to suggest pneumonia. No evidence for pulmonary edema. Stable prominence of the perihilar vascular markings. IMPRESSION: No significant change compared to the prior study. No acute process. Electronically signed by: Chicho Powell M.D. 03/31/2016 8:04 AM Dictated Date/Time: 03/31/2016 8:00 AM
[2016-03-31] MEDS: AMOXICILLIN/CLAVULANATE TAB 500 MG TAB PO SCH ×2 (08:28→17:15)
[2016-03-31] MEDS: PANTOprazole SOD 40 MG TAB PO SCH (08:28)
[2016-03-31] MEDS: METOPROLOL TARTRATE 25 MG TAB PO SCH (08:28)
[2016-03-31] MEDS: FILGRASTIM 480 MCG/1.6 ML VIAL SC SCH (08:31)
[2016-03-31] MEDS: INSULIN ASPART 100 UNITS/ML 3 ML PEN SC SCH ×4 (08:41→21:00)
[2016-03-31] MEDS: INSULIN GLARGINE SOLOSTAR 100 UNITS/ML 3 ML PEN SC SCH ×2 (08:41→22:24)
--- NOTE | 2016-03-31 09:56 | Nephrology Progress Note ---
Nephrology Progress Note Date of Service Mar 31, 2016. Chief Complaint Evaluation of acute on chronic kidney injury Subjective Mr. Forrester was seen & examined in his hospital room this morning. He had an episode of chest pressure last night. He required SL NTG. He is now on a phototypesetting equipment monitor and is awaiting transfer to a telemetry unit. He reports that his chest discomfort has resolved. He is no longer having diarrhea. His IVF has been stopped. Review of Systems Constitutional: No fever Cardiovascular: No chest pain Respiratory: No dyspnea at rest Abdomen: No diarrhea, No nausea, No pain, No vomiting Genitourinary - Male: No dysuria Extremities: No leg edema Integumentary: No rash A complete review of systems was performed. Pertinent positives are noted above. All other systems are negative. Vital Signs Last 8 Hrs Date Time Temp Pulse Resp B/P Pulse Ox O2 Delivery O2 Flow Rate FiO2 03/31/16 08:19 36.8 64 18 96 03/31/16 07:23 36.8 64 18 150/80 96 Room Air 03/31/16 05:47 67 20 178/84 94 Room Air 03/31/16 05:30 37.0 68 20 166/80 97 Room Air 03/31/16 02:55 36.9 63 18 145/77 97 Room Air I & O 24-Hour Column 03/31/16 08:00 Intake Total 1170 ml Output Total 1275 ml Balance -105 ml Last Recorded Weight Weight (Kilograms): 114.500 Physical Exam General Appearance: no apparent distress Head: normocephalic, atraumatic Eyes: PERRL, EOMI Neck: no adenopathy Respiratory/Chest: lungs clear, no respiratory distress Cardiovascular: regular rate, rhythm Abdomen/GI: normal bowel sounds, non tender, soft Extremities/Musculoskelatal: no calf tenderness, no pedal edema Neurologic/Psych: alert, oriented x 3 Family History Heart disease Hypertension Negative for CKD/ESRD Social History Marital Status: Occupation: retired . Retired. Never a smoker Laboratory Results Past 24 Hours 03/31/16 05:15 03/31/16 07:00 Red Blood Count 3.85, Mean Corpuscular Volume 84.4, Mean Corpuscular Hemoglobin 28.8, Mean Corpuscular Hemoglobin Concent 34.2, Mean Platelet Volume 12.3 03/31/16 05:15 Test 03/30/16 11:38 03/30/16 16:48 03/30/16 20:33 03/31/16 05:15 Bedside Glucose 126 mg/dl (70-99) 122 mg/dl (70-99) 120 mg/dl (70-99) Red Blood Count 3.90 M/uL (4.7-6.1) Mean Corpuscular Volume 84.9 fL (80-100) Mean Corpuscular Hemoglobin 29.0 pg (25-34) Mean Corpuscular Hemoglobin Concent 34.1 g/dl (32-36) RDW Standard Deviation 39.4 fL (36.4-46.3) RDW Coefficient of Variation 12.8 % (11.5-14.5) Mean Platelet Volume 12.5 fL (7.4-10.4) Anion Gap 12.0 mmol/L (3-11) Est Creatinine Clear Calc Drug Dose 27.7 ml/min Estimated GFR () 22.4 Estimated GFR (Non- 19.3 BUN/Creatinine Ratio 16.9 (10-20) Calcium Level 8.3 mg/dl (8.5-10.1) Test 03/31/16 05:41 03/31/16 06:20 03/31/16 07:00 03/31/16 07:39 Bedside Glucose 93 mg/dl (70-99) 105 mg/dl (70-99) Total Creatine Kinase 80 U/L (39-308) Creatine Kinase MB 1.1 ng/ml (0.5-3.6) Creatine Kinase MB Ratio 1.4 (0-3.0) Troponin I 0.028 ng/ml (0-0.045) White Blood Count 2.87 K/uL (4.8-10.8) Red Blood Count 3.85 M/uL (4.7-6.1) Hemoglobin 11.1 g/dL (14.0-18.0) Hematocrit 32.5 % (42-52) Mean Corpuscular Volume 84.4 fL (80-100) Mean Corpuscular Hemoglobin 28.8 pg (25-34) Mean Corpuscular Hemoglobin Concent 34.2 g/dl (32-36) Platelet Count 29 K/uL (130-400) Mean Platelet Volume 12.3 fL (7.4-10.4) RDW Standard Deviation 39.2 fL (36.4-46.3) RDW Coefficient of Variation 12.7 % (11.5-14.5) Neutrophils % (Manual) 30.7 % Lymphocytes % (Manual) 32.4 % Variant Lymphocytes % (manual) 12.3 % Monocytes % (Manual) 14.0 % Eosinophils % (Manual) 8.8 % Basophils % (Manual) 0.9 % (0-2) Myelocytes % 0.9 % Neutrophils # (Manual) 0.88 K/uL (1.4-6.5) Total Absolute Neutrophils 0.88 K/uL (1.4-6.5) Lymphocytes # (Manual) 0.93 K/uL (1.2-3.4) Absolute Variant Lymphocytes 0.35 K/uL Total Absolute Lymphocytes 1.28 K/uL (1.2-3.4) Monocytes # (Manual) 0.40 K/uL (0.11-0.59) Eosinophils # (Manual) 0.25 K/uL (0-0.5) Basophils # (Manual) 0.03 K/uL (0-0.2) Myelocytes # 0.03 K/uL (0-0) Toxic Granulation 2+ Dohle Bodies 2+ Platelet Estimate SIGNIFIC DECREASED Large Platelets 2+ Prothrombin Time 12.5 SECONDS (9.0-12.0) Prothromb Time International Ratio 1.2 (0.9-1.1) Activated Partial Thromboplast Time 32.2 SECONDS (21.0-31.0) Partial Thromboplastin Ratio 1.2 Allergies Coded Allergies: No Known Allergies (Verified , 02/24/16) Medications Current Inpatient Medications Medications (Trade) Dose Ordered Sig/Reese Route Start Time Stop Time Status Last Admin Dose Admin Acetaminophen (Tylenol Tab) 650 mg Q4H PRN PO 03/28/16 14:30 04/27/16 14:29 03/31/16 06:12 650 MG Ondansetron HCl (Zofran Inj) 4 mg Q6H PRN IV 03/28/16 14:30 04/27/16 14:29 03/31/16 01:08 4 MG Atorvastatin Calcium (Lipitor Tab) 40 mg HS PO 03/28/16 21:00 04/27/16 20:59 03/30/16 21:12 40 MG Acetaminophen/ Hydrocodone Bitart ([place] 5/325 Tab) 1 tab Q6H PRN PO 03/28/16 14:45 04/11/16 14:44 03/30/16 21:13 1 TAB Metoprolol Tartrate (Lopressor Tab) 25 mg BID PO 03/28/16 20:00 04/27/16 19:59 03/31/16 08:28 25 MG Pantoprazole Sodium (Protonix Tab) 40 mg QAM PO 03/29/16 08:00 04/28/16 07:59 03/31/16 08:28 40 MG Glucose (Glucose 40% Gel) 15-30 GRAMS 15 GRAMS... UD PRN PO 03/28/16 15:30 04/27/16 15:29 Glucose (Glucose Chew Tab) 4-8 Tablets 4 Tabl... UD PRN PO 03/28/16 15:30 04/27/16 15:29 Dextrose (Dextrose 50% 50ML Syringe) 25-50ML OF 50% DW IV FOR... UD PRN IV 03/28/16 15:30 04/27/16 15:29 Glucagon (Glucagon Inj) 1 mg UD PRN SQ 03/28/16 15:30 04/27/16 15:29 Insulin Aspart (novoLOG ASPART) SLIDING SCALE G... ACHS SC 03/28/16 16:30 04/27/16 16:29 03/30/16 18:29 3 UNITS Miscellaneous Information (Consult Glycemic Management Pharmacy) 1 ea UD PRN N/A 03/28/16 19:33 04/27/16 19:32 Zolpidem Tartrate (Ambien Tab) 5 mg HS PRN PO 03/28/16 23:15 04/27/16 23:14 03/30/16 21:13 5 MG Filgrastim (Neupogen Sq) 480 mcg DAILY SC 03/29/16 11:00 04/28/16 10:59 03/31/16 08:31 480 MCG Loperamide HCl (Imodium Cap) 2 mg Q8H PRN PO 03/29/16 14:15 04/28/16 14:14 Insulin Glargine (Lantus Solostar Pen) see protocol text BID SC 03/29/16 20:00 04/28/16 19:59 03/31/16 08:41 10 UNIT Heparin Sodium (Porcine) (Heparin 100 Unit/ml 5ml Flush) 5 ml PRN PRN IV 03/30/16 12:00 04/29/16 11:59 Miscellaneous Information 1 ea UD PRN N/A 03/30/16 12:15 04/29/16 12:14 Amoxicillin/ Clavulanate Potassium (Augmentin Tab) 500 mg BIDM PO 03/30/16 17:00 04/09/16 16:59 03/31/16 08:28 500 MG Nitroglycerin (Nitrostat Tab) 0.4 mg PRN PRN SL 03/31/16 05:45 04/30/16 05:44 Impression (1) Small cell carcinoma of bladder (2) Acute kidney injury (3) Chronic kidney disease, stage 3 (moderate) (4) Hypertension (5) Diarrhea 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 PET scan 03/02 was negative for metastatic disease. He was treated w/ Etoposide ([facility] 16) and Cisplatin 03/16. He developed diarrhea, poor oral intake and continued his MIGUE inhibitor and thiazide diuretic. He is now admitted with BERNADETTE and dehydration. Recommendations ACUTE KIDNEY INJURY: -- Hold Lisinopril and HCTZ until kidney function normalizes -- Urinalysis shows only trace protein. No blood. Although the patient has glucosuria, he also has mild hyperglycemia. -- Renal US report was negative for hydronephrosis. There is a 5 mm right kidney stone. -- Patient remains clinically volume contracted. Will resume gentle hydration w / 0.9 NS -- Monitor PRP CHRONIC KIDNEY DISEASE: -- Baseline creatinine 1.6 - 1.8 ID: -- Agree w/ neupogen administration to correct neutropenia -- Blood cultures are negative. Stool is negative for clostridium difficile toxin. Urine culture was positive for low number of strep. Patient is on Cefepime therapy
--- NOTE | 2016-03-31 09:58 | Pharmacy Progress Note ---
Glycemic Control: Progress Nt Date of Service Mar 31, 2016. Scope Glycemic Pharmacist consulted for glycemic control and to write orders per [facility] inpatient glycemic control protocol. Objective Accuchecks BSG (last 24hrs): Test 03/30/16 11:38 03/30/16 16:48 03/30/16 20:33 03/31/16 05:15 Bedside Glucose 126 mg/dl (70-99) 122 mg/dl (70-99) 120 mg/dl (70-99) Random Glucose 105 mg/dl (70-99) Test 03/31/16 05:41 03/31/16 07:39 Bedside Glucose 93 mg/dl (70-99) 105 mg/dl (70-99) Laboratory Data (last 24hrs) Test 03/31/16 05:15 03/31/16 07:00 Anion Gap 12.0 mmol/L BUN/Creatinine Ratio 16.9 Blood Urea Nitrogen 52 mg/dl Creatinine 3.10 mg/dl Potassium Level 3.7 mmol/L Sodium Level 143 mmol/L White Blood Count 2.56 K/uL 2.87 K/uL Red Blood Count 3.85 M/uL Hemoglobin 11.1 g/dL Hematocrit 32.5 % Mean Corpuscular Volume 84.4 fL Mean Corpuscular Hemoglobin 28.8 pg Mean Corpuscular Hemoglobin Concent 34.2 g/dl Platelet Count 29 K/uL Mean Platelet Volume 12.3 fL HbA1c: 8.8% in 01/2016 Recent Pertinent Medications Outpatient Anti-diabetic Regimen: * Concentrated U-500 Regular insulin 0.22mL (drawn up in a 1 mL syringe) BID * This equates to 110 units of Regular U-100 insulin SQ BID * Or, a total daily dose of 220 units SQ of Regular U-100 insulin The patient is currently receiving: * Basal insulin: Lantus SQ BID based on BSG * If BSG below 120mg/dl --> Give Lantus 10 units * If BSG 120 - 179mg/dl --> Give Lantus 15 units * If BSG 180mg/dl or above --> Give Lantus 20 units * Correctional Insulin: Novolog Correction per scale ACHS Goal Range: Low 120 mg/dL - High 160 mg/dL Correction Factor: 20 mg/dL/unit * Prandial insulin: Per carb ratio of 1 unit per 7 grams CHO consumed Risk Factors for Insulin Resistance: * Infection * Diet * Baseline severe insulin resistance per high outpatient doses of insulin Assessment & Plan ASSESSMENT: * 70yo T2DM male with severe baseline insulin resistance as patient uses 200+ units of insulin per day as an outpatient with near-adequate degree of outpatient control. Goal A1c is ~ 8.5% based on age and co-morbidities. Unsure how reliable recent A1c is with pt significant anemia, cancer, etc and altered RBC turnover rate. * Typically, patient's maintained on U-500 regular insulin require significantly less insulin while admitted - weight based dosing was used instead of converting outpatient dosing to inpatient dosing. * Pt has been receiving ~ 30units of insulin over per day with adequate control * BSGs [phone] over the past 24hrs * The majority of total daily insulin dose is basal insulin since pt PO intake is so little. * BSGs are slightly below goal range. Will decrease basal insulin to prevent future hypoglycemia. * Pt is being transferred to a higher level of care d/t CP. * Will continue range based basal insulin dosing per BSG to help prevent hypo/ hyperglycemia with changing factors affecting insulin needs * Will adjust goal range to 140-180mg/dl as recommended by ADA & AACE for the majority of critically ill patients. PLAN FOR INPATIENT GLYCEMIC CONTROL: * Holding outpatient U-500 regular insulin --> most likely may resume at discharge * DECREASE Basal insulin with Lantus SQ BID * If BSG below 120mg/dl --> Give Lantus 7 units * If BSG 120 - 179mg/dl --> Give Lantus 12 units * If BSG 180mg/dl or above --> Give Lantus 18 units * Continue Correctional Insulin with NOVOLOG per scale ACHS or Q6hrs while NPO. * INCREASE Goal Range: Low 140 mg/dL - High 180 mg/dL * LOOSEN Correction Factor: 30 mg/dL/unit * LOOSEN Nutritional / Prandial insulin per carb ratio of 1 unit per 10 grams CHO consumed * Please note that the plan above was derived based on current level of insulin resistance and hospital stress. These recommendations are appropriate for inpatient admission only. Plan of care upon discharge will need to be reassessed to avoid potential outpatient hypo/hyperglycemia. Thank you.
[2016-03-31] MEDS: SODIUM CHLORIDE 0.9% 1000ML 1,000 ML IV SCH ×2 (10:52→20:00)
[2016-03-31] MEDS: HYDROCODONE/ACETAMOPHEN 5/325MG TAB PO PRN ×2 (11:45→18:21)
[2016-03-31 12:53] LABS: CKMB/CK RATIO 1.8 (0-3.0)
[2016-03-31 14:03] LABS: PARTIAL THROMBOPLASTIN RATIO 1.2
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
[2016-03-31] MEDS ORDERED: METOPROLOL TARTRATE 25 MG TAB PO ONE (16:45)
[2016-03-31 18:50] LABS: CKMB/CK RATIO 1.8 (0-3.0)
[2016-03-31] MEDS: METOPROLOL TARTRATE 50 MG TAB PO SCH (21:08)
[2016-03-31] MEDS: ATORVASTATIN 40 MG TAB PO SCH (21:08)
[2016-04-01] MEDS ORDERED: NITROGLYCERIN OINT 2% 1GM PACKET EXT ONE (00:15)
[2016-04-01 00:27] LABS: CKMB/CK RATIO 2.5 (0-3.0)
[2016-04-01] MEDS: HYDROCODONE/ACETAMOPHEN 5/325MG TAB PO PRN ×3 (02:53→20:54)
--- NOTE | 2016-04-01 03:59 | Progress Note ---
Progress Note I was paged at approximately 23:52. Patient was noted to be having chest discomfort. EKG was obtained SUBJECTIVE: Nurse administered sublingual nitroglycerin, the patient noted improvement in symptoms OBJECTIVE: Vital signs: BP: 145/73, HR 57; RR 16; Sat 95% (2L) Item Value Date Time Troponin I 0.042 ng/ml 03/31/16 2350 Troponin I 0.025 ng/ml 03/31/16 1755 Troponin I 0.022 ng/ml 03/31/16 1206 Troponin I 0.028 ng/ml 03/31/16 0620 EKG: Sinus rhythm rate 66; single premature supraventricular complex; no pauses ; no ST or T-wave changes ASSESSMENT/PLAN: 70-year-old gentleman with known underlying coronary disease, with unstable angina, responsive to single dose of sublingual nitroglycerin Troponins have remained within normal limits and there are no acute EKG changes concerning for an evolving infarction. However this is his second episode in 24 hours of chest pain at rest but has responded to sublingual nitroglycerin. I reviewed the most recent cardiology progress note stating he may be candidate for invasive evaluation. Plan is as follows - Start Nitropaste single 6-hour application, and assess symptoms - Additional set of cardiac enzymes with morning labs. ------ Patient reassessed at 03:40. Patient is resting comfortably, vital signs are all stable. No other action at this time. I will sign out the day team for further management.
[2016-04-01 04:00] VITALS: BP 140/65; PULSE 58; TEMP 36.8; O2SAT 95
[2016-04-01] MEDS: SODIUM CHLORIDE 0.9% 1000ML 1,000 ML IV SCH ×2 (06:00→16:52)
[2016-04-01 06:38] LABS: PARTIAL THROMBOPLASTIN RATIO 1.2
[2016-04-01 06:50] LABS: HEMATOCRIT 31.8 % (42-52); MEAN CELL VOLUME 84.6 fL (80-100); MEAN CORPUSCULAR HEMOGLOBIN 28.7 pg (25-34); MEAN PLATELET VOLUME 12.6 fL (7.4-10.4); PLATELET COUNT 45 K/uL (130-400); RED BLOOD COUNT 3.76 M/uL (4.7-6.1); WHITE BLOOD COUNT 9.27 K/uL (4.8-10.8)
[2016-04-01 07:07] LABS: BUN/CREATININE RATIO 15.8 (10-20); CALCIUM 8.1 mg/dl (8.5-10.1); CREATININE 2.8 mg/dl (0.60-1.40); POTASSIUM 3.9 mmol/L (3.5-5.1)
[2016-04-01 07:12] LABS: CKMB/CK RATIO 2.6 (0-3.0)
--- NOTE | 2016-04-01 07:45 | Hospitalist Progress Note ---
Hospitalist Progress Note Date of Service Apr 01, 2016. Subjective Pt evaluation today including: conversation w/ patient, physical exam, chart review, lab review, review of studies Pain: None PO Intake: Good Voiding: no voiding problems The patient was seen and examined this morning. Pt reports around 11:30 pm experienced some recurrent substernal chest pain. He denies the pain was as intense as it was previously, and repeat EKG still showed T wave inversion in the inferior leads. He denies having any chest pain since that time when he was administered an aspirin and nitro paste applied. He denies any shortness of breath during the episode, no lightheadedness, dizziness, palpitations. He ate breakfast without difficulty. Echo was completed this morning, awaiting read. All Other Systems: Reviewed and Negative (other than listed in HPI) Objective Vital Signs Date Time Temp Pulse Resp B/P Pulse Ox O2 Delivery O2 Flow Rate FiO2 04/01/16 04:00 Nasal Cannula 2.0 04/01/16 04:00 36.8 58 20 140/65 95 Nasal Cannula 2.0 03/31/16 23:59 37.0 62 16 145/73 95 Nasal Cannula 2.0 03/31/16 23:59 Nasal Cannula 2.0 03/31/16 20:00 Room Air 03/31/16 20:00 37.1 67 16 165/69 97 Room Air 03/31/16 16:00 36.6 66 16 162/80 98 Room Air 03/31/16 16:00 Room Air 03/31/16 12:00 36.8 72 23 146/72 93 03/31/16 12:00 Room Air 03/31/16 08:19 36.8 64 18 96 Physical Exam General Appearance: WD/WN, no apparent distress, + obese Eyes: PERRL, EOMI ENT: hearing grossly normal, pharynx normal Neck: supple, no JVD Respiratory/Chest: chest non-tender, lungs clear, no respiratory distress, no accessory muscle use Cardiovascular: regular rate, rhythm, no murmur Abdomen: normal bowel sounds, non tender, soft Extremities: non-tender, no pedal edema, no calf tenderness Neurologic/Psychiatric: alert, normal mood/affect, oriented x 3 Skin: normal color, warm/dry Laboratory Results Last 24 Hours Test 03/31/16 07:39 03/31/16 10:58 03/31/16 12:06 03/31/16 13:35 Bedside Glucose 105 mg/dl 108 mg/dl Total Creatine Kinase 79 U/L Creatine Kinase MB 1.4 ng/ml Creatine Kinase MB Ratio 1.8 Troponin I 0.022 ng/ml Activated Partial Thromboplast Time 30.8 SECONDS Partial Thromboplastin Ratio 1.2 Test 03/31/16 16:13 03/31/16 17:55 03/31/16 21:14 03/31/16 23:50 Bedside Glucose 147 mg/dl 123 mg/dl Total Creatine Kinase 72 U/L 72 U/L Creatine Kinase MB 1.3 ng/ml 1.8 ng/ml Creatine Kinase MB Ratio 1.8 2.5 Troponin I 0.025 ng/ml 0.042 ng/ml Test 04/01/16 06:19 04/01/16 06:25 White Blood Count 9.27 K/uL Red Blood Count 3.76 M/uL Hemoglobin 10.8 g/dL Hematocrit 31.8 % Mean Corpuscular Volume 84.6 fL Mean Corpuscular Hemoglobin 28.7 pg Mean Corpuscular Hemoglobin Concent 34.0 g/dl RDW Standard Deviation 39.2 fL RDW Coefficient of Variation 12.8 % Platelet Count 45 K/uL Mean Platelet Volume 12.6 fL Activated Partial Thromboplast Time 31.2 SECONDS Partial Thromboplastin Ratio 1.2 Sodium Level 145 mmol/L Potassium Level 3.9 mmol/L Chloride Level 111 mmol/L Carbon Dioxide Level 23 mmol/L Anion Gap 11.0 mmol/L Blood Urea Nitrogen 44 mg/dl Creatinine 2.80 mg/dl Est Creatinine Clear Calc Drug Dose 30.6 ml/min Estimated GFR () 25.3 Estimated GFR (Non- 21.9 BUN/Creatinine Ratio 15.8 Random Glucose 117 mg/dl Calcium Level 8.1 mg/dl Total Creatine Kinase 50 U/L Creatine Kinase MB 1.3 ng/ml Creatine Kinase MB Ratio 2.6 Troponin I 0.038 ng/ml Bedside Glucose 125 mg/dl Assessment and Plan 70 yo male with 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 Hx of exposure to agent orange in [place]. Chest pain- recurred overnight again in research study assistant on 04/01, similar presentation as on 03/31. - 03/31: EKG showing new T wave inversions significant for ischemia, initial trop 0.028, then slightly trended upward - 04/01: and after recurrent cp last evening were again trended- 0.042 --> 0.032. - Cardiology consulted and are considering a re-entrant tachycardia. Will start on asa today as his plt count continues to slowly climb. - Hx of previous CT with CAD, possibility of cardiac etiology with pain relief with nitro and aspirin 325 mg x 2 now. - no heparin gtt due to the patient risk of bleed with decreased plt count and hx of hematuria with bladder cx currently undergoing antineoplastic therapy. - Consider troponin bump possibly being influenced by BERNADETTE as well BERNADETTE on CKD stg III, secondary to Right sided nephrolithiasis: - Cr was 3.7 on admission, now down to 2.8 - Strict I/Os - Tolerating oral fluid intake, no IVFs overnight. - urine sodium & urine creatinine both WNL - Started on augmentin strep UTI on 03/30 - consult nephrology- appreciate recs Renal US on 03/29: 1. No hydronephrosis. 2. Right-sided nephrolithiasis. UTI - UA slightly dirty, culture growing streptococcus - Cont augmentin PO, day #3 Pancytopenia due to antineoplastic therapy, bladder cx: His ANC is 0.8, next chemo cycle was due next week. Getting daily Neupogen injection. - will need Neulasta as an outpatient per onc. - appreciate recs. - neutropenia precautions, received 3 days fo cefepime, cont oral augmentin ( day 3). - blood cultures no growth - CXR without acute pulmonary findings or active disease in the chest. Thrombocytopenia: related to chemo, follow with daily CBC, no bleeding or bruising currently - Now s/p 1 U platelets on 03/29 with plt count up continues to trend upward, PLT =45 - Follow with am labs SCC Bladder: consult oncology- appreciate recs GERD: PPI DM II: basal insulin as well as Novolog coverage, diabetic diet DVT ppx: contraindicated, thrombocytopenia Disposition: From home, await cardiology input.
[2016-04-01 08:00] VITALS: BP 175/72; PULSE 75; TEMP 36.7; O2SAT 92
[2016-04-01] MEDS: PANTOprazole SOD 40 MG TAB PO SCH (08:03)
[2016-04-01] MEDS: AMOXICILLIN/CLAVULANATE TAB 500 MG TAB PO SCH ×2 (08:03→16:51)
[2016-04-01] MEDS: METOPROLOL TARTRATE 50 MG TAB PO SCH ×2 (08:03→20:55)
[2016-04-01] MEDS: FILGRASTIM 480 MCG/1.6 ML VIAL SC SCH (08:04)
[2016-04-01] MEDS: INSULIN GLARGINE SOLOSTAR 100 UNITS/ML 3 ML PEN SC SCH ×2 (08:05→20:58)
--- NOTE | 2016-04-01 09:14 | Nephrology Progress Note ---
Nephrology Progress Note Date of Service Apr 01, 2016. Chief Complaint Evaluation of acute on chronic kidney injury Subjective Mr. Forrester was seen & examined in the ICU this morning. He had an episode of chest pressure last night. He describes this as a retrosternal chest pressure without radiation. There was no associated dyspnea, diaphoresis or nausea. It occurred at rest and was relieved by SL NTG. He is currently chest pain free. He denies flank discomfort or difficulty voiding. He reports brisk urine output in response to IV hydration. Review of Systems Constitutional: No fever Cardiovascular: No chest pain Respiratory: No dyspnea at rest Abdomen: No diarrhea, No nausea, No pain, No vomiting Genitourinary - Male: No dysuria, No gross hematuria Extremities: No leg edema A complete review of systems was performed. Pertinent positives are noted above. All other systems are negative. Vital Signs Last 8 Hrs Date Time Temp Pulse Resp B/P Pulse Ox O2 Delivery O2 Flow Rate FiO2 04/01/16 04:00 Nasal Cannula 2.0 04/01/16 04:00 36.8 58 20 140/65 95 Nasal Cannula 2.0 I & O 24-Hour Column 04/01/16 08:00 Intake Total 2380 ml Output Total 770 ml Balance 1610 ml Last Recorded Weight Weight (Kilograms): 114.500 Physical Exam General Appearance: no apparent distress Head: normocephalic, atraumatic Eyes: PERRL, EOMI Neck: no adenopathy Respiratory/Chest: lungs clear, no respiratory distress Cardiovascular: regular rate, rhythm Abdomen/GI: normal bowel sounds, non tender, soft Extremities/Musculoskelatal: no calf tenderness, no pedal edema Neurologic/Psych: alert, oriented x 3 Family History Heart disease Hypertension Negative for CKD/ESRD Social History Marital Status: Occupation: retired . Retired. Never a smoker Laboratory Results Past 24 Hours 04/01/16 06:19 04/01/16 06:19 Test 03/31/16 10:58 03/31/16 12:06 03/31/16 13:35 03/31/16 16:13 Bedside Glucose 108 mg/dl (70-99) 147 mg/dl (70-99) Total Creatine Kinase 79 U/L (39-308) Creatine Kinase MB 1.4 ng/ml (0.5-3.6) Creatine Kinase MB Ratio 1.8 (0-3.0) Troponin I 0.022 ng/ml (0-0.045) Activated Partial Thromboplast Time 30.8 SECONDS (21.0-31.0) Partial Thromboplastin Ratio 1.2 Test 03/31/16 17:55 03/31/16 21:14 03/31/16 23:50 04/01/16 06:19 Total Creatine Kinase 72 U/L (39-308) 72 U/L (39-308) 50 U/L (39-308) Creatine Kinase MB 1.3 ng/ml (0.5-3.6) 1.8 ng/ml (0.5-3.6) 1.3 ng/ml (0.5-3.6) Creatine Kinase MB Ratio 1.8 (0-3.0) 2.5 (0-3.0) 2.6 (0-3.0) Troponin I 0.025 ng/ml (0-0.045) 0.042 ng/ml (0-0.045) 0.038 ng/ml (0-0.045) Bedside Glucose 123 mg/dl (70-99) Red Blood Count 3.76 M/uL (4.7-6.1) Mean Corpuscular Volume 84.6 fL (80-100) Mean Corpuscular Hemoglobin 28.7 pg (25-34) Mean Corpuscular Hemoglobin Concent 34.0 g/dl (32-36) RDW Standard Deviation 39.2 fL (36.4-46.3) RDW Coefficient of Variation 12.8 % (11.5-14.5) Mean Platelet Volume 12.6 fL (7.4-10.4) Activated Partial Thromboplast Time 31.2 SECONDS (21.0-31.0) Partial Thromboplastin Ratio 1.2 Anion Gap 11.0 mmol/L (3-11) Est Creatinine Clear Calc Drug Dose 30.6 ml/min Estimated GFR () 25.3 Estimated GFR (Non- 21.9 BUN/Creatinine Ratio 15.8 (10-20) Calcium Level 8.1 mg/dl (8.5-10.1) Test 04/01/16 06:25 Bedside Glucose 125 mg/dl (70-99) Date/Time Source Procedure Growth Status 2/15/17 21:15 Nasal MRSA DNA Surveillance Screen - Final Specimen Negative for MRSA by DNA Probe Complete Allergies Coded Allergies: No Known Allergies (Verified , 02/24/16) Medications Current Inpatient Medications Medications (Trade) Dose Ordered Sig/Reese Route Start Time Stop Time Status Last Admin Dose Admin Acetaminophen (Tylenol Tab) 650 mg Q4H PRN PO 03/28/16 14:30 04/27/16 14:29 03/31/16 06:12 650 MG Ondansetron HCl (Zofran Inj) 4 mg Q6H PRN IV 03/28/16 14:30 04/27/16 14:29 03/31/16 01:08 4 MG Atorvastatin Calcium (Lipitor Tab) 40 mg HS PO 03/28/16 21:00 04/27/16 20:59 03/31/16 21:08 40 MG Acetaminophen/ Hydrocodone Bitart (Benedict 5/325 Tab) 1 tab Q6H PRN PO 03/28/16 14:45 04/11/16 14:44 04/01/16 02:53 1 TAB Pantoprazole Sodium (Protonix Tab) 40 mg QAM PO 03/29/16 08:00 04/28/16 07:59 04/01/16 08:03 40 MG Glucose (Glucose 40% Gel) 15-30 GRAMS 15 GRAMS... UD PRN PO 03/28/16 15:30 04/27/16 15:29 Glucose (Glucose Chew Tab) 4-8 Tablets 4 Tabl... UD PRN PO 03/28/16 15:30 04/27/16 15:29 Dextrose (Dextrose 50% 50ML Syringe) 25-50ML OF 50% DW IV FOR... UD PRN IV 03/28/16 15:30 04/27/16 15:29 Glucagon (Glucagon Inj) 1 mg UD PRN SQ 03/28/16 15:30 04/27/16 15:29 Insulin Aspart (novoLOG ASPART) SLIDING SCALE G... ACHS SC 03/28/16 16:30 04/27/16 16:29 03/30/16 18:29 3 UNITS Miscellaneous Information (Consult Glycemic Management Pharmacy) 1 ea UD PRN N/A 03/28/16 19:33 04/27/16 19:32 Zolpidem Tartrate (Ambien Tab) 5 mg HS PRN PO 03/28/16 23:15 04/27/16 23:14 03/30/16 21:13 5 MG Filgrastim (Neupogen Sq) 480 mcg DAILY SC 03/29/16 11:00 04/28/16 10:59 04/01/16 08:04 480 MCG Loperamide HCl (Imodium Cap) 2 mg Q8H PRN PO 03/29/16 14:15 04/28/16 14:14 Insulin Glargine (Lantus Solostar Pen) see protocol text BID SC 03/29/16 20:00 04/28/16 19:59 04/01/16 08:05 10 UNIT Heparin Sodium (Porcine) (Heparin 100 Unit/ml 5ml Flush) 5 ml PRN PRN IV 03/30/16 12:00 04/29/16 11:59 Miscellaneous Information 1 ea UD PRN N/A 03/30/16 12:15 04/29/16 12:14 Amoxicillin/ Clavulanate Potassium (Augmentin Tab) 500 mg BIDM PO 03/30/16 17:00 04/09/16 16:59 04/01/16 08:03 500 MG Nitroglycerin 0.4 mg 0.4 mg PRN PRN SL 03/31/16 05:45 04/30/16 05:44 03/31/16 23:40 0.4 MG Sodium Chloride (Nss 1000ml) 1,000 ml @ 100 mls/hr Q10H IV 03/31/16 10:00 04/30/16 09:59 04/01/16 06:00 100 MLS/HR Metoprolol Tartrate (Lopressor Tab) 50 mg BID PO 03/31/16 21:00 04/30/16 20:59 04/01/16 08:03 50 MG Impression (1) Small cell carcinoma of bladder (2) Acute kidney injury (3) Chronic kidney disease, stage 3 (moderate) (4) Hypertension (5) Diarrhea 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 PET scan 03/02 was negative for metastatic disease. He was treated w/ Etoposide (JOB ORDER CLERK 16) and Cisplatin 03/16. He developed diarrhea, poor oral intake and continued his MIGUE inhibitor and thiazide diuretic. He is now admitted with BERNADETTE and dehydration. Recommendations ACUTE KIDNEY INJURY: -- Hold Lisinopril and HCTZ until kidney function normalizes -- Urinalysis shows only trace protein. No blood. Although the patient has glucosuria, he also has mild hyperglycemia. -- Renal US report was negative for hydronephrosis. There is a 5 mm right kidney stone. -- Patient remains clinically volume contracted. Will continue gentle hydration w/ 0.9 NS -- Monitor PRP CHRONIC KIDNEY DISEASE: -- Baseline creatinine 1.6 - 1.8 ID: -- Patient received Neupogen. Patient is no longer neutropenic. Platelet count is trending up. -- Blood cultures are negative. Stool is negative for clostridium difficile toxin. Urine culture was positive for enterococcus. Patient is on Augmentin therapy ASCVD: -- CPK and troponin are within acceptable limits -- Await echocardiogram results and further cardiology recommendations
[2016-04-01] MEDS ORDERED: PERFLUTREN LIPID MICROSPHERE (DEFINITY) IV ONE (09:49)
[2016-04-01] MEDS: INSULIN ASPART 100 UNITS/ML 3 ML PEN SC SCH ×4 (09:49→20:57)
[2016-04-01 12:00] VITALS: BP 162/79; PULSE 67; TEMP 36.3; O2SAT 93
[2016-04-01] MEDS: ONDANSETRON INJ 2 MG/ML 2 ML VIAL IV PRN (13:15)
[2016-04-01] MEDS ORDERED: METOPROLOL TARTRATE 50 MG TAB PO STA (14:05)
--- NOTE | 2016-04-01 14:05 | Cardiology Follow-Up ---
Subjective Date of Service: Apr 01, 2016. Pt evaluation today including: conversation w/ patient, conversation w/ family , physical exam, lab review, review of studies, review of inpatient medication list History of Present Illness This is a very pleasant 70-year-old gentleman who has a history of diabetes mellitus, hypercholesterolemia, hypertension as well as known coronary artery disease. Although I don't have records he describes having chest discomfort about 20 years ago and having bypass surgery at that time. He reports not having any further chest discomfort into today. He denies a history of palpitations or rapid heart rate, and does not recall having any type of arrhythmia. He tells me he has not been on medications for his heart for many years, although he is on metoprolol and lisinopril at home. On 03/31/2016 he reported having a feeling of lightheadedness and some sort of chest discomfort although it was not really pain that he described. The discomfort lasted a relatively short period of time but may have lasted close to one hour. He has had some rapid heart rates noted on telemetry, these are rapid and regular at a rate of about 100 bpm but he seems unaware of them. He recalls his symptoms of chest discomfort between 7 and 8 a.m. although the chart indicates this was more like 5 AM. He was not on telemetry at the time but his vital signs do not indicate a rapid heart rate and an electrocardiogram then shows sinus rhythm at 66 bpm without acute changes although there are anterior T-wave abnormalities. With the chest discomfort, the hypertension and his arrhythmia I increased his beta angus yesterday. During the night he reports having several episodes of his chest discomfort. At this time my examination today he is not having any discomfort. He has not felt any palpitations. Social History Smoking Status: Never Smoker History of Alcohol Use: No Review of Systems Respiratory: No cough, No hemoptysis, No shortness of breath Cardiac: + chest pain, + see HPI, No edema Medications Cardiovascular: Item Value Date Time Metoprolol 50 mg 03/31/16 2100 Tartrate BID/PO 04/01/16 0803 (Lopressor Tab) Objective Vital Signs Past 12 Hours Date Time Temp Pulse Resp B/P Pulse Ox O2 Delivery O2 Flow Rate FiO2 04/01/16 12:00 Room Air 04/01/16 12:00 36.3 67 18 162/79 93 Room Air 04/01/16 08:00 36.7 75 18 175/72 92 Room Air 04/01/16 08:00 Room Air 04/01/16 04:00 Nasal Cannula 2.0 04/01/16 04:00 36.8 58 20 140/65 95 Nasal Cannula 2.0 Last Recorded Weight-Kilograms: 114.500 Intake & Output 8-Hour Column 03/31/16 03/31/16 04/01/16 15:59 23:59 07:59 Intake Total 485 ml 1005 ml 890 ml Output Total 250 ml 520 ml Balance 485 ml 755 ml 370 ml 24-Hour Column 04/01/16 07:59 Intake Total 2380 ml Output Total 770 ml Balance 1610 ml Physical Exam Constitutional: General Apperance: heathly-appearing Level of Distress: NAD Lungs: Respiratory effort: no dyspnea, good air movement Auscultation: breath sounds normal, no wheezing Cardiovascular: Heart Auscultation: RRR, no murmurs, no rubs, no gallops Peripheral Pulses: Bruits: none appreciated Extremities: no edema Data Laboratory Results: Last 24 Hours Test 03/31/16 16:13 03/31/16 17:55 03/31/16 21:14 03/31/16 23:50 Bedside Glucose 147 mg/dl 123 mg/dl Total Creatine Kinase 72 U/L 72 U/L Creatine Kinase MB 1.3 ng/ml 1.8 ng/ml Creatine Kinase MB Ratio 1.8 2.5 Troponin I 0.025 ng/ml 0.042 ng/ml Test 04/01/16 06:19 04/01/16 06:25 04/01/16 11:08 White Blood Count 9.27 K/uL Red Blood Count 3.76 M/uL Hemoglobin 10.8 g/dL Hematocrit 31.8 % Mean Corpuscular Volume 84.6 fL Mean Corpuscular Hemoglobin 28.7 pg Mean Corpuscular Hemoglobin Concent 34.0 g/dl RDW Standard Deviation 39.2 fL RDW Coefficient of Variation 12.8 % Platelet Count 45 K/uL Mean Platelet Volume 12.6 fL Activated Partial Thromboplast Time 31.2 SECONDS Partial Thromboplastin Ratio 1.2 Sodium Level 145 mmol/L Potassium Level 3.9 mmol/L Chloride Level 111 mmol/L Carbon Dioxide Level 23 mmol/L Anion Gap 11.0 mmol/L Blood Urea Nitrogen 44 mg/dl Creatinine 2.80 mg/dl Est Creatinine Clear Calc Drug Dose 30.6 ml/min Estimated GFR () 25.3 Estimated GFR (Non- 21.9 BUN/Creatinine Ratio 15.8 Random Glucose 117 mg/dl Calcium Level 8.1 mg/dl Total Creatine Kinase 50 U/L Creatine Kinase MB 1.3 ng/ml Creatine Kinase MB Ratio 2.6 Troponin I 0.038 ng/ml Bedside Glucose 125 mg/dl 162 mg/dl EKG: Sinus rhythm, nonspecific ST-T abnormalities, somewhat improved from yesterday were anterior T-wave inversion was identified. Telemetry reviewed: Continued periods of SVT at a heart rate of around 100, in fact he is having an episode one house and examining him this afternoon. He was asymptomatic during the arrhythmia and when it terminated while is in the room he had no different sensation. Assessment and Plan #1. Chest discomfort: In view of his known coronary artery disease and bypass surgery this is worrisome, he feels he has not had this since his bypass surgery many years ago. He did have anterior T-wave inversions which are also worrisome however his enzymes have been negative and those changes are no longer present on his electrocardiogram today, they could be due to lead placement or transient ischemia. His discomfort has recurred. I would recommend continued observation, this may be indicative of ischemia by don't think we should perform invasive evaluation at this time and is possible the symptoms are noncardiac. Invasive evaluation may be indicated in the future however. I would also like to get an echocardiogram although not sure we have one for comparison. His blood pressure remains elevated and therefore I'm going to go up further on his beta angus. #2. SVT: He has intermittent SVT on the monitor, this is quite frequent (some lasting minutes) but he seems unaware of these and the heart rate is only about 100 bpm. It is suggestive of a reentrant arrhythmia (such as AV srinivasan reentry or a bypass tract tachycardia). They do start with a premature beat. I would continue observe this as well but we may have to treat this, especially if he has difficulty with chest discomfort but so far it is not correlated. I am going up on his beta angus for his chest discomfort and blood pressure, this may also help with his SVT. #3. Coronary disease: He has known coronary artery disease and had bypass surgery in the past. It doesn't sound as though he has had a recent evaluation. The status of it is therefore uncertain. I would continue atorvastatin, and add aspirin if felt safe from his primary service, with his thrombocytopenia I'm not sure how much this would benefit in any case. We may have to consider a stress test at some point in the relatively near future but I would not do it now. Thank you for allowing me to participate in his care.
[2016-04-01 16:23] VITALS: BP 155/80; PULSE 61; TEMP 36.9; O2SAT 97
--- NOTE | 2016-04-01 16:25 | Hematology/Oncology Prog Note ---
Hematology/Onc Progress Note Date of Service Apr 01, 2016. Diagnoses Small cell bladder cancer BERNADETTE Neutropenia Medications Medications Administered Medications (Trade) Dose Ordered Sig/Reese Route Start Time Stop Time Status Last Admin Dose Admin Acetaminophen (Tylenol Tab) 650 mg Q4H PRN PO 03/28/16 14:30 04/27/16 14:29 03/31/16 06:12 650 MG Ondansetron HCl (Zofran Inj) 4 mg Q6H PRN IV 03/28/16 14:30 04/27/16 14:29 04/01/16 13:15 4 MG Atorvastatin Calcium (Lipitor Tab) 40 mg HS PO 03/28/16 21:00 04/27/16 20:59 03/31/16 21:08 40 MG Acetaminophen/ Hydrocodone Bitart ([place] 5/325 Tab) 1 tab Q6H PRN PO 03/28/16 14:45 04/11/16 14:44 04/01/16 12:41 1 TAB Metoprolol Tartrate (Lopressor Tab) 25 mg BID PO 03/28/16 20:00 03/31/16 16:24 DC 03/31/16 08:28 25 MG Pantoprazole Sodium 40 mg 40 mg QAM PO 03/29/16 08:00 04/28/16 07:59 04/01/16 08:03 40 MG Sodium Chloride 1,000 ml @ 100 mls/hr Q10H IV 03/28/16 16:15 03/30/16 12:34 DC 03/30/16 09:33 100 MLS/HR Cefepime HCl/ Dextrose (Maxipime IV/D5 100ml) 111.3 ml @ 200 mls/hr Q24H IV 03/28/16 17:00 03/29/16 16:22 DC 03/28/16 17:54 200 MLS/HR Filgrastim (Neupogen Sq) 480 mcg ONE ONCE SC 03/28/16 17:00 03/28/16 17:01 DC 03/28/16 17:55 480 MCG Insulin Aspart (novoLOG ASPART) SLIDING SCALE G... ACHS SC 03/28/16 16:30 04/27/16 16:29 04/01/16 12:36 6 UNITS Insulin Glargine (Lantus Solostar Pen) 20 unit TODAY@2100 SC 03/28/16 21:00 03/28/16 22:00 DC 03/28/16 20:57 20 UNIT Insulin Aspart (novoLOG ASPART) SLIDING SCALE G... 0000,0400 SC 03/29/16 00:00 03/30/16 08:16 DC 03/29/16 04:06 1 UNITS Zolpidem Tartrate (Ambien Tab) 5 mg HS PRN PO 03/28/16 23:15 04/27/16 23:14 03/30/16 21:13 5 MG Insulin Glargine 10 unit 10 unit BID SC 03/29/16 08:00 03/29/16 14:48 DC 03/29/16 08:26 10 UNIT Magnesium Sulfate/ Prmx (Magnesium Sulfate/Premixed D5W) 100 ml @ 100 mls/hr Q1H IV 03/29/16 10:30 03/29/16 12:29 DC 03/29/16 13:55 100 MLS/HR Filgrastim (Neupogen Sq) 480 mcg DAILY SC 03/29/16 11:00 04/28/16 10:59 04/01/16 08:04 480 MCG Loperamide HCl (Imodium Cap) 4 mg 1415 ONCE PO 03/29/16 14:15 03/29/16 14:16 DC 03/29/16 14:18 4 MG Insulin Glargine see protocol text BID SC 03/29/16 20:00 04/28/16 19:59 04/01/16 08:05 10 UNIT Cefepime HCl/ Dextrose (Maxipime IV/D5 100ml) 112.5 ml @ 225 mls/hr Q24H IV 03/29/16 17:00 03/30/16 12:12 DC 03/29/16 17:08 225 MLS/HR Menthol (Nice Jose) 24 jose STK-MED ONCE .ROUTE 03/30/16 07:43 03/30/16 07:46 DC 03/30/16 07:48 24 JOSE Amoxicillin/ Clavulanate Potassium (Augmentin Tab) 500 mg BIDM PO 03/30/16 17:00 04/09/16 16:59 04/01/16 08:03 500 MG Nitroglycerin (Nitrostat Tab) 0.4 mg STK-MED ONCE .ROUTE 03/31/16 05:38 03/31/16 05:40 DC 03/31/16 05:46 0.4 MG Aspirin (Aspirin Chew) 324 mg NOW STAT PO 03/31/16 05:39 03/31/16 06:06 DC 03/31/16 06:12 324 MG Nitroglycerin 0.4 mg 0.4 mg PRN PRN SL 03/31/16 05:45 04/30/16 05:44 03/31/16 23:40 0.4 MG Heparin Sodium (Porcine) 7000 unit/Syringe 7 ml @ 10 mls/min NOW ONCE IV 03/31/16 06:45 03/31/16 07:51 DC 03/31/16 07:18 10 MLS/MIN Heparin Sodium/ Dextrose 500 ml @ 32 mls/hr [id number] PRN IV 03/31/16 06:45 03/31/16 07:51 DC 03/31/16 07:20 32 MLS/HR Sodium Chloride (Nss 1000ml) 1,000 ml @ 100 mls/hr Q10H IV 03/31/16 10:00 04/30/16 09:59 04/01/16 06:00 100 MLS/HR Metoprolol Tartrate (Lopressor Tab) 50 mg BID PO 03/31/16 21:00 04/01/16 14:07 DC 04/01/16 08:03 50 MG Metoprolol Tartrate (Lopressor Tab) 25 mg NOW ONCE PO 03/31/16 16:45 03/31/16 16:46 DC 03/31/16 17:15 25 MG Nitroglycerin (Nitroglycerin 2% Oint) 0.5 inch ONE ONCE EXT 04/01/16 00:15 04/01/16 00:16 DC 04/01/16 01:06 0.5 INCH Perflutren Lipid Microsphere (Definity) 2 ml ONE ONCE IV 04/01/16 09:49 04/01/16 09:50 DC 04/01/16 09:49 2 ML Metoprolol Tartrate (Lopressor Tab) 25 mg NOW STAT PO 04/01/16 14:05 04/01/16 14:22 DC 04/01/16 14:41 25 MG Subjective Mr. Forrester had some issues with chest discomfort and some questionable EKG changes. He's feeling better today, but was transferred to [facility] for closer observation. His counts are recovering nicely. His creatinine also continues to fall. He has no pain, nausea, weakness, or other complaints, though he has lost all his hair. Review of Systems: Constitutional: No chills, No fever Eyes: No worsening of vision ENT: + problem reported (no mucositis) Respiratory: No cough, No shortness of breath Cardiovascular: + see HPI Abdomen: No diarrhea, No nausea, No pain, No vomiting Musculoskeletal: No joint pain Male : No hematuria Neurologic: No numbness/tingling, No weakness Heme: No abnormal bleeding/bruising Skin: No rash Vital Signs Vital Signs Past 12 Hours Date Time Temp Pulse Resp B/P Pulse Ox O2 Delivery O2 Flow Rate FiO2 04/01/16 12:00 Room Air 04/01/16 12:00 36.3 67 18 162/79 93 Room Air 04/01/16 08:00 36.7 75 18 175/72 92 Room Air 04/01/16 08:00 Room Air Physical Exam Constitutional: General Apperance: obese Level of Distress: NAD Psychiatric: Mental Status: active & alert Orientation: oriented except where noted, to time, to place, to person Eyes: EOM: EOMI Lungs: Respiratory Effort: no dyspnea Auscuitation: CTA except as noted Cardiovascular: Heart Auscultation: RRR, no murmurs Abdomen: Inspection & Palpation: soft, no tenderness, guarding & rebound Extremities: no edema Neurologic: Cranial Nerves: grossly intact Laboratory Last 24 Hours Test 03/31/16 17:55 03/31/16 21:14 03/31/16 23:50 04/01/16 06:19 Total Creatine Kinase 72 U/L 72 U/L 50 U/L Creatine Kinase MB 1.3 ng/ml 1.8 ng/ml 1.3 ng/ml Creatine Kinase MB Ratio 1.8 2.5 2.6 Troponin I 0.025 ng/ml 0.042 ng/ml 0.038 ng/ml Bedside Glucose 123 mg/dl White Blood Count 9.27 K/uL Red Blood Count 3.76 M/uL Hemoglobin 10.8 g/dL Hematocrit 31.8 % Mean Corpuscular Volume 84.6 fL Mean Corpuscular Hemoglobin 28.7 pg Mean Corpuscular Hemoglobin Concent 34.0 g/dl RDW Standard Deviation 39.2 fL RDW Coefficient of Variation 12.8 % Platelet Count 45 K/uL Mean Platelet Volume 12.6 fL Activated Partial Thromboplast Time 31.2 SECONDS Partial Thromboplastin Ratio 1.2 Sodium Level 145 mmol/L Potassium Level 3.9 mmol/L Chloride Level 111 mmol/L Carbon Dioxide Level 23 mmol/L Anion Gap 11.0 mmol/L Blood Urea Nitrogen 44 mg/dl Creatinine 2.80 mg/dl Est Creatinine Clear Calc Drug Dose 30.6 ml/min Estimated GFR () 25.3 Estimated GFR (Non- 21.9 BUN/Creatinine Ratio 15.8 Random Glucose 117 mg/dl Calcium Level 8.1 mg/dl Test 04/01/16 06:25 04/01/16 11:08 Bedside Glucose 125 mg/dl 162 mg/dl Assessment & Plan Mr. Murray is feeling well, though he did have some stress-related cardiac symptoms that responded to nitroglycerin. He was seen by cardiology for this. His counts are recovering nicely. He no longer requires growth factor support. He has an appointment with Dr. Mcrae on next Tuesday, 04/06, and should keep that appointment. They will discuss plans for further treatment at that time. At this point, he seems to be doing well and his issues are non-oncologic. We will sign off for now, but would be happy if need be.
--- NOTE | 2016-04-01 20:05 | ECHOCARDIOGRAM REPORT ---
*NOTICE TO RECEIVING DEMOCRAT AGENCY This information is strictly Confidential and protected under [place] law. [place] law prohibits you from making any further disclosure of this information unless further disclosure is expressly permitted by the written consent of the person to whom it pertains or is authorized by law. A general authorization for the release of medical or other information is not sufficient for this purpose. Hospital accepts no responsibility if the information is made available to any other person, INCLUDING THE PATIENT. Interpretation Summary * Name: LENORE SAWYER Study Date: 04/01/2016 09:34 AM BP: 140/65 mmHg * Patient Location: .MSICU\S\E110\S\1 HR: 58 * : 1945 (M/d/yyy) Gender: Male Height: 69 in * Age: 70 yrs Ethnicity: CA Weight: 252 lb * Ordering Physician: Rashida Summers * Referring Physician: Tee Yo * Performed By: Caitlyn Snowden * * Reason For Study: CHEST PAIN * BSA: 2.3 m2 * -- Conclusions -- * 1. Normal left ventricular size with hyperdynamic systolic function. EF > 70%. No regional wall motion abnormalities. Mild concentric left ventricular hypertrophy. * 2. The left atrium is mildly dilated. * 3. The right atrium is moderately dilated. * 4. Aortic valve sclerosis mild, without significant aortic valvular stenosis. * 5. Moderate to severe pulmonary hypertension suggested with an estimated right ventricular systolic pressure of 60mmHg. * 6. Technically difficult study, enhanced with IV Definity. * 7. No prior study available for comparison. Procedure Details * A complete two-dimensional transthoracic echocardiogram was performed (2D, M-mode, Doppler and color flow Doppler). * A contrast injection of Definity was performed to improve assessment of LV function. * Contrast was injected into an intravenous site in the left arm. * One vial of Definity ultrasound contrast was diluted in normal saline to a total volume of 10 ml. A total of '3' ml of solution was administered during imaging. * Lot # [id number] of Definity utilized for procedure. * Expiration date 04/03. Left Ventricle * Normal left ventricular size with hyperdynamic systolic function. EF > 70%. No regional wall motion abnormalities. Mild concentric left ventricular hypertrophy. Right Ventricle * The right ventricle is not well visualized. * The right ventricle is grossly normal size. * The right ventricular systolic function is normal as assessed by tricuspid annular plane systolic excursion (TAPSE) (normal >1.5 cm). * The right ventricular systolic function is normal. Atria * The left atrium is mildly dilated. * The right atrium is moderately dilated. Mitral Valve * The mitral valve is not well visualized. * There is no mitral valve stenosis. * Significant mitral regurgitation is absent. Tricuspid Valve * The tricuspid valve is not well visualized, but is grossly normal. * There is no tricuspid stenosis. * There is mild tricuspid regurgitation. Aortic Valve * The aortic valve is trileaflet. * Aortic valve sclerosis mild, without significant aortic valvular stenosis. * No hemodynamically significant valvular aortic stenosis. * No aortic regurgitation is present. Pulmonic Valve * The pulmonary valve is inadequately visualized, but the Doppler data is adequate for interpretation. * There is no pulmonic valvular stenosis. * Trace pulmonic valvular regurgitation. Great Vessels * The aortic root is normal size. Pericardium/Pleural * There is no pericardial effusion. Great Vessels * Normal inferior vena cava size and collapsability with sniff indicates a normal right atrial pressure of 3 mmHg Left Ventricular Diastolic Function * No significant diastolic dysfunction suggested. MMode 2D Measurements and Calculations IVSd 1.2 cm IVSs 2.0 cm LVIDd 4.6 cm LVIDs 2.6 cm LVPWd 1.2 cm LVPWs 1.7 cm IVS/LVPW 1.1 FS 44.1 % EDV(Teich) 98.9 ml ESV(Teich) 24.3 ml EF(Teich) 75.4 % EDV(cubed) 99.3 ml ESV(cubed) 17.3 ml EF(cubed) 82.5 % % IVS thick 57.6 % % LVPW thick 42.4 % LV mass(C)d 210.0 grams LV mass(C)dI 92.2 grams/m\S\2 LV mass(C)s 187.2 grams LV mass(C)sI 82.1 grams/m\S\2 CO(Teich) 5.5 l/min CI(Teich) 2.4 l/min/m\S\2 SV(Teich) 74.6 ml SI(Teich) 32.7 ml/m\S\2 CO(cubed) 6.1 l/min CI(cubed) 2.7 l/min/m\S\2 SV(cubed) 82.0 ml SI(cubed) 36.0 ml/m\S\2 Ao root diam 3.0 cm Ao root area 6.9 cm\S\2 ACS 0.82 cm LA dimension 4.4 cm asc Aorta Diam 3.3 cm LA/Ao 1.5 LVOT diam 2.0 cm LVOT area 3.2 cm\S\2 LVAd ap4 32.5 cm\S\2 LVLd ap4 8.5 cm EDV(MOD-sp4) 102.1 ml EDV(sp4-el) 102.7 ml LVAs ap4 14.6 cm\S\2 LVLs ap4 7.2 cm ESV(MOD-sp4) 27.8 ml ESV(sp4-el) 25.1 ml EF(MOD-sp4) 72.7 % EF(sp4-el) 75.6 % LVAd ap2 24.0 cm\S\2 LVLd ap2 7.7 cm EDV(MOD-sp2) 62.0 ml LVAs ap2 10.7 cm\S\2 LVLs ap2 6.7 cm ESV(MOD-sp2) 15.0 ml EF(MOD-sp2) 75.8 % CO(MOD-sp4) 5.5 l/min CI(MOD-sp4) 2.4 l/min/m\S\2 SV(MOD-sp4) 74.3 ml SI(MOD-sp4) 32.6 ml/m\S\2 CO(MOD-sp2) 3.5 l/min CI(MOD-sp2) 1.5 l/min/m\S\2 SV(MOD-sp2) 47.0 ml SI(MOD-sp2) 20.6 ml/m\S\2 CO(sp4-el) 5.7 l/min CI(sp4-el) 2.5 l/min/m\S\2 SV(sp4-el) 77.6 ml SI(sp4-el) 34.0 ml/m\S\2 Doppler Measurements and Calculations MV E max ghanshyam 98.7 cm/sec MV A max ghanshyam 57.5 cm/sec MV E/A 1.7 MV dec time 0.24 sec Ao V2 max 139.9 cm/sec Ao max PG 7.8 mmHg Ao max PG (full) 2.5 mmHg DAYRON(V,A) 2.6 cm\S\2 DAYRON(V,D) 2.6 cm\S\2 LV V1 max PG 5.3 mmHg LV V1 mean PG 2.2 mmHg LV V1 max 115.3 cm/sec LV V1 mean 66.1 cm/sec LV V1 VTI 23.0 cm SV(LVOT) 73.5 ml SI(LVOT) 32.2 ml/m\S\2 PA V2 max 65.9 cm/sec PA max PG 1.7 mmHg TR max ghanshyam 375.6 cm/sec RVSP(TR) 59.5 mmHg RAP systole 3.0 mmHg
[2016-04-01 20:48] VITALS: BP 169/86; PULSE 73; TEMP 36.7; O2SAT 95
[2016-04-01] MEDS: ZOLPIDEM TARTRATE 5 MG TAB PO PRN (20:54)
[2016-04-01] MEDS: ATORVASTATIN 40 MG TAB PO SCH (20:57)
[2016-04-01 23:59] VITALS: BP 155/83; PULSE 69; TEMP 36.6; O2SAT 94
[2016-04-02] MEDS: ONDANSETRON INJ 2 MG/ML 2 ML VIAL IV PRN (01:30)
[2016-04-02 03:59] VITALS: BP 142/71; PULSE 54; TEMP 36.7; O2SAT 96
[2016-04-02] MEDS: HYDROCODONE/ACETAMOPHEN 5/325MG TAB PO PRN (06:35)
[2016-04-02] MEDS: SODIUM CHLORIDE 0.9% 1000ML 1,000 ML IV SCH (06:36)
[2016-04-02 06:53] LABS: PARTIAL THROMBOPLASTIN RATIO 1.1
[2016-04-02 07:11] LABS: BUN/CREATININE RATIO 15.2 (10-20); CREATININE 2.7 mg/dl (0.60-1.40); POTASSIUM 3.6 mmol/L (3.5-5.1)
--- NOTE | 2016-04-02 07:31 | Hospitalist Progress Note ---
Hospitalist Progress Note Date of Service Apr 02, 2016. Subjective Pt evaluation today including: conversation w/ patient, physical exam, chart review, lab review, review of studies, review of inpatient medication list The patient was seen and examined this morning. Pt reports slept well overnight. Has been up walking by himself. 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 He feels he is ready for discharge. Pt denies cp , sob, abd pain, n/v/d/c, lightheadedness and dizziness. All Other Systems: Reviewed and Negative (other than per HPI) Objective Vital Signs Date Time Temp Pulse Resp B/P Pulse Ox O2 Delivery O2 Flow Rate FiO2 04/02/16 04:00 Room Air 04/02/16 03:59 36.7 54 15 142/71 96 Nasal Cannula 2.0 04/01/16 23:59 36.6 69 16 155/83 94 Room Air 04/01/16 23:59 Room Air 04/01/16 20:48 36.7 73 20 169/86 95 Room Air 04/01/16 20:00 Room Air 04/01/16 16:23 36.9 61 21 155/80 97 Room Air 04/01/16 16:00 Room Air 04/01/16 12:00 Room Air 04/01/16 12:00 36.3 67 18 162/79 93 Room Air 04/01/16 08:00 36.7 75 18 175/72 92 Room Air 04/01/16 08:00 Room Air Physical Exam Notes: Vital Signs - as noted below Laboratory Data - as noted below Physical Exam: General - NAD, obese Eyes - No icterus, gaze conjugate, EOMI ENT - Mucosa moist, no lesions or candidiasis Neck - Supple, No JVD Lungs - No bronchospasm, rales, or rhonchi. Heart - Regular, rate controlled Abdomen - Soft, NT, ND, BS present Extremities - No edema, pedal pulses intact Neuro - A&OX3 Laboratory Results Last 24 Hours Test 04/01/16 11:08 04/01/16 16:27 04/01/16 20:50 04/02/16 06:20 Bedside Glucose 162 mg/dl 76 mg/dl 130 mg/dl Activated Partial Thromboplast Time 27.7 SECONDS Partial Thromboplastin Ratio 1.1 Sodium Level 147 mmol/L Potassium Level 3.6 mmol/L Chloride Level 113 mmol/L Carbon Dioxide Level 24 mmol/L Anion Gap 10.0 mmol/L Blood Urea Nitrogen 41 mg/dl Creatinine 2.70 mg/dl Est Creatinine Clear Calc Drug Dose 31.8 ml/min Estimated GFR () 26.5 Estimated GFR (Non- 22.8 BUN/Creatinine Ratio 15.2 Random Glucose 95 mg/dl Calcium Level 8.0 mg/dl Test 04/02/16 06:39 Bedside Glucose 97 mg/dl Assessment and Plan 70 yo male with 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 Hx of exposure to agent orange in [place]. Chest pain Moderate to Severe Pulmonary HTN - 03/31: EKG showing new T wave inversions significant for ischemia, initial trop 0.028, then slightly trended upward -repeat EKG not showing T wave inversions ? lead misplacement - 04/01: and after recurrent cp enzymes were again trended- 0.042 -->0.032. - Cardiology consulted and are considering a re-entrant arrhythmia so metoprolol was increased to 75 mg BID. Elevated HR does not seem to correlate with episodes of chest pain. Will start on asa as his plt count continues to slowly climb. -Echo completed on 04/01 -- Conclusions -- * 1. Normal left ventricular size with hyperdynamic systolic function. EF > 70%. No regional wall motion abnormalities. Mild concentric left ventricular hypertrophy. * 2. The left atrium is mildly dilated. * 3. The right atrium is moderately dilated. * 4. Aortic valve sclerosis mild, without significant aortic valvular stenosis. * 5. Moderate to severe pulmonary hypertension suggested with an estimated right ventricular systolic pressure of 60mmHg. * 6. Technically difficult study, enhanced with IV Definity. * 7. No prior study available for comparison. - Cards is recommending a stress test at some point but not currently. - May be able to have this as an outpatient if symptoms continue to be controlled - Hx of previous CT with CAD, possibility of cardiac etiology with pain relief with nitro and aspirin 325 mg x 2 - no heparin gtt due to the patient risk of bleed with decreased plt count and hx of hematuria with bladder cx currently undergoing antineoplastic therapy. - Consider troponin bump possibly being influenced by BERNADETTE as well BERNADETTE on CKD stg III, secondary to Right sided nephrolithiasis: - Cr was 3.7 on admission, now down to 2.7 - Strict I/Os - Tolerating oral fluid intake, no IVFs overnight. - urine sodium & urine creatinine both WNL - Started on augmentin strep UTI on 03/30 - consult nephrology- appreciate recs Renal US on 03/29: 1. No hydronephrosis. 2. Right-sided nephrolithiasis. UTI - UA slightly dirty, culture growing streptococcus - Cont augmentin PO, day #4 Pancytopenia due to antineoplastic therapy, bladder cx: His ANC is 0.8, next chemo cycle was due next week. Pt no longer needs daily neupogen. - will need Neulasta as an outpatient per onc. - appreciate recs- signed off. - neutropenia precautions, received 3 days fo cefepime, cont oral augmentin ( day 4). - blood cultures no growth - CXR without acute pulmonary findings or active disease in the chest. Thrombocytopenia: related to chemo, follow with daily CBC, no bleeding or bruising currently - Now s/p 1 U platelets on 03/29 with plt count up continues to trend upward, PLT =45 on 04/01 - Follow with am labs SCC Bladder: consult oncology- appreciate recs GERD: PPI DM II: basal insulin as well as Novolog coverage, diabetic diet DVT ppx: contraindicated, thrombocytopenia Disposition: From home, dc today
[2016-04-02 07:37] VITALS: Ht 175.3 cm; Wt 114.5 kg
[2016-04-02 08:00] VITALS: BP 136/61; PULSE 66; TEMP 36.4; O2SAT 96
[2016-04-02] MEDS ORDERED: METO25TA56 PO (08:39)
[2016-04-02] MEDS ORDERED: ASPEC81 PO (08:39)
[2016-04-02] MEDS ORDERED: ONDA4TAB10 SL (08:39)
[2016-04-02] MEDS: INSULIN ASPART 100 UNITS/ML 3 ML PEN SC SCH ×2 (08:41→11:53)
[2016-04-02] MEDS: AMOXICILLIN/CLAVULANATE TAB 500 MG TAB PO SCH (08:43)
[2016-04-02] MEDS: METOPROLOL TARTRATE 50 MG TAB PO SCH (08:47)
[2016-04-02] MEDS: PANTOprazole SOD 40 MG TAB PO SCH (08:48)
--- NOTE | 2016-04-02 08:50 | Discharge Instructions ---
Discharge Instructions Admission Reason for Admission: Neutropenic, Acute Renal Failure Discharge Discharge Diagnosis / Problem: Acute Renal Failure Discharge Goals Goal(s): Decrease discomfort, Improve function Activity Recommendations Activity Limitations: resume your previous activity . Instructions / Follow-Up Instructions / Follow-Up You were admitted to [facility] with acute kidney injury on chronic kidney disease due to right sided kidney stone. Your kidney function improved with intravenous fluids and good oral intake. It is important that you continue to drink plenty of water to stay hydrated. You developed some chest pain while admitted so cardiology was consulted. An echocardiogram did not show abnormal findings, and your EKG appeared to be normal. Your medication for heart rate/blood pressure (metoprolol) has been increased to 50 mg twice daily. You blood counts were low while admitted due to chemotherapy so you required daily neupogen injections. Please discuss needing neulasta during your next oncology appointment. This was suggested by Dr. Almeida with oncology Follow up with cardiology within 1-2 weeks, you will need to have an outpatient stress echocardiogram, at this follow up appointment the physician will discuss this with you. Follow up with Dr. Banks as scheduled next week Follow up with your PCP within 1 week. Current Hospital Diet Patient's current hospital diet: Diabetes Type 2 Diet Discharge Diet Recommended Diet: Diabetes Type 2 Diet Procedures Procedures Performed: 04/01/16 Echocardiogram Pending Studies Studies pending at discharge: no Laboratory Results Last 24 Hours Test 04/01/16 11:08 04/01/16 16:27 04/01/16 20:50 04/02/16 06:20 Bedside Glucose 162 mg/dl 76 mg/dl 130 mg/dl Activated Partial Thromboplast Time 27.7 SECONDS Partial Thromboplastin Ratio 1.1 Sodium Level 147 mmol/L Potassium Level 3.6 mmol/L Chloride Level 113 mmol/L Carbon Dioxide Level 24 mmol/L Anion Gap 10.0 mmol/L Blood Urea Nitrogen 41 mg/dl Creatinine 2.70 mg/dl Est Creatinine Clear Calc Drug Dose 31.8 ml/min Estimated GFR () 26.5 Estimated GFR (Non- 22.8 BUN/Creatinine Ratio 15.2 Random Glucose 95 mg/dl Calcium Level 8.0 mg/dl Test 04/02/16 06:39 04/02/16 07:30 Bedside Glucose 97 mg/dl Hemoglobin A1c Test 02/03/16 13:33 Range/Units Estimated Average Glucose 206 mg/dl Hemoglobin A1c 8.8 H 4.5-5.6 % Medical Emergencies . Who to Call and When: Medical Emergencies: If at any time you feel your situation is an emergency, please call 911 immediately. . Non-Emergent Contact Non-Emergency issues call your: Primary Care Provider Call Non-Emergent contact if: you have a fever If you develop chest pain, shortness of breath, abdominal pain, severe pain, lighteadedness, weakness or if you have other concerns with your health. . Past History Medical & Surgical History: (1) Acute kidney injury (2) Chronic kidney disease, stage 3 (moderate) (3) Right nephrolithiasis (4) Diabetes (5) Hypertension (6) Small cell carcinoma (7) Neutropenia . "Provider Documentation" section prepared by Crystal Summers. VTE Core Measure Inpt VTE Proph given/why not?: Unfractionated heparin SQ, SCD's
[2016-04-02] MEDS: FILGRASTIM 480 MCG/1.6 ML VIAL SC SCH (08:52)
[2016-04-02] MEDS: INSULIN GLARGINE SOLOSTAR 100 UNITS/ML 3 ML PEN SC SCH (08:54)
[2016-04-02] MEDS ORDERED: ASPIRIN 81 MG ECTAB PO SCH (09:00)
--- NOTE | 2016-04-02 09:16 | Nephrology Progress Note ---
Nephrology Progress Note Date of Service Apr 02, 2016. Chief Complaint Evaluation of acute on chronic kidney injury Subjective Mr. Forrester was seen & examined in the ICU this morning. He has had no further chest discomfort. He hopes to be discharged to home today. He reports that he is scheduled for chemotherapy again early next week. Review of Systems Constitutional: No fever Cardiovascular: No chest pain Respiratory: No dyspnea at rest Abdomen: No diarrhea, No pain, No vomiting Genitourinary - Male: No dysuria, No gross hematuria Extremities: No leg edema A complete review of systems was performed. Pertinent positives are noted above. All other systems are negative. Vital Signs Last 8 Hrs Date Time Temp Pulse Resp B/P Pulse Ox O2 Delivery O2 Flow Rate FiO2 04/02/16 04:00 Room Air 04/02/16 03:59 36.7 54 15 142/71 96 Nasal Cannula 2.0 I & O 24-Hour Column 04/02/16 07:59 Intake Total 2908 ml Output Total 1675 ml Balance 1233 ml Last Recorded Weight Weight (Kilograms): 114.500 Physical Exam General Appearance: no apparent distress Head: atraumatic Eyes: PERRL, EOMI Neck: no adenopathy, no JVD Respiratory/Chest: lungs clear, no respiratory distress Cardiovascular: regular rate, rhythm Abdomen/GI: normal bowel sounds, non tender, soft Extremities/Musculoskelatal: no calf tenderness, no pedal edema Neurologic/Psych: alert, oriented x 3 Family History Heart disease Hypertension Negative for CKD/ESRD Social History Marital Status: Occupation: retired . Retired. Never a smoker Laboratory Results Past 24 Hours 04/02/16 06:20 Test 04/01/16 11:08 04/01/16 16:27 04/01/16 20:50 04/02/16 06:20 Bedside Glucose 162 mg/dl (70-99) 76 mg/dl (70-99) 130 mg/dl (70-99) Activated Partial Thromboplast Time 27.7 SECONDS (21.0-31.0) Partial Thromboplastin Ratio 1.1 Anion Gap 10.0 mmol/L (3-11) Est Creatinine Clear Calc Drug Dose 31.8 ml/min Estimated GFR () 26.5 Estimated GFR (Non- 22.8 BUN/Creatinine Ratio 15.2 (10-20) Calcium Level 8.0 mg/dl (8.5-10.1) Test 04/02/16 06:39 04/02/16 08:42 Bedside Glucose 97 mg/dl (70-99) Allergies Coded Allergies: No Known Allergies (Verified , 02/24/16) Medications Current Inpatient Medications Medications (Trade) Dose Ordered Sig/Reese Route Start Time Stop Time Status Last Admin Dose Admin Acetaminophen (Tylenol Tab) 650 mg Q4H PRN PO 03/28/16 14:30 04/27/16 14:29 03/31/16 06:12 650 MG Ondansetron HCl (Zofran Inj) 4 mg Q6H PRN IV 03/28/16 14:30 04/27/16 14:29 04/02/16 01:30 4 MG Atorvastatin Calcium (Lipitor Tab) 40 mg HS PO 03/28/16 21:00 04/27/16 20:59 04/01/16 20:57 40 MG Acetaminophen/ Hydrocodone Bitart (Kobuk 5/325 Tab) 1 tab Q6H PRN PO 03/28/16 14:45 04/11/16 14:44 04/02/16 06:35 1 TAB Pantoprazole Sodium (Protonix Tab) 40 mg QAM PO 03/29/16 08:00 04/28/16 07:59 04/02/16 08:48 40 MG Glucose (Glucose 40% Gel) 15-30 GRAMS 15 GRAMS... UD PRN PO 03/28/16 15:30 04/27/16 15:29 Glucose (Glucose Chew Tab) 4-8 Tablets 4 Tabl... UD PRN PO 03/28/16 15:30 04/27/16 15:29 Dextrose (Dextrose 50% 50ML Syringe) 25-50ML OF 50% DW IV FOR... UD PRN IV 03/28/16 15:30 04/27/16 15:29 Glucagon (Glucagon Inj) 1 mg UD PRN SQ 03/28/16 15:30 04/27/16 15:29 Insulin Aspart (novoLOG ASPART) SLIDING SCALE G... ACHS SC 03/28/16 16:30 04/27/16 16:29 04/01/16 12:36 6 UNITS Miscellaneous Information (Consult Glycemic Management Pharmacy) 1 ea UD PRN N/A 03/28/16 19:33 04/27/16 19:32 Zolpidem Tartrate (Ambien Tab) 5 mg HS PRN PO 03/28/16 23:15 04/27/16 23:14 04/01/16 20:54 5 MG Filgrastim (Neupogen Sq) 480 mcg DAILY SC 03/29/16 11:00 04/28/16 10:59 04/02/16 08:52 480 MCG Loperamide HCl (Imodium Cap) 2 mg Q8H PRN PO 03/29/16 14:15 04/28/16 14:14 Insulin Glargine (Lantus Solostar Pen) see protocol text BID SC 03/29/16 20:00 04/28/16 19:59 04/02/16 08:54 5 UNIT Heparin Sodium (Porcine) (Heparin 100 Unit/ml 5ml Flush) 5 ml PRN PRN IV 03/30/16 12:00 04/29/16 11:59 Miscellaneous Information 1 ea UD PRN N/A 03/30/16 12:15 04/29/16 12:14 Amoxicillin/ Clavulanate Potassium (Augmentin Tab) 500 mg BIDM PO 03/30/16 17:00 04/09/16 16:59 04/02/16 08:43 500 MG Nitroglycerin (Nitrostat Tab) 0.4 mg PRN PRN SL 03/31/16 05:45 04/30/16 05:44 03/31/16 23:40 0.4 MG Metoprolol Tartrate (Lopressor Tab) 75 mg BID PO 04/01/16 21:00 05/01/16 20:59 04/02/16 08:47 75 MG Aspirin (Ecotrin Tab) 81 mg QAM PO 04/02/16 09:00 05/02/16 08:59 04/02/16 08:44 81 MG Impression (1) Small cell carcinoma of bladder (2) Acute kidney injury (3) Chronic kidney disease, stage 3 (moderate) (4) Hypertension (5) Diarrhea 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 PET scan 03/02 was negative for metastatic disease. He was treated w/ Etoposide ([employer]CHIT[employer] 16) and Cisplatin 03/16. He developed diarrhea, poor oral intake and continued his MIGUE inhibitor and thiazide diuretic. He is now admitted with BERNADETTE and dehydration. Recommendations ACUTE KIDNEY INJURY: -- Hold Lisinopril and HCTZ until kidney function normalizes -- Urinalysis shows only trace protein. No blood. Although the patient has glucosuria, he also has mild hyperglycemia. -- Renal US report was negative for hydronephrosis. There is a 5 mm right kidney stone. -- Patient reports that he will be discharged to home today. I have instructed him to postpone his chemotherapy for one week. I have asked my campus security officer staff to schedule Mr. Forrester for an outpatient nephrology office visit on Tuesday or of next week. I have provided the patient with a lab requisition to complete blood work 24 hours prior to his office visit. Kidney function should be fully corrected before next round of chemotherapy. Patient voiced understanding. CHRONIC KIDNEY DISEASE: -- Baseline creatinine 1.6 - 1.8 ID: -- Patient received Neupogen. Patient is no longer neutropenic. Platelet count is trending up. -- Blood cultures are negative. Stool is negative for clostridium difficile toxin. Urine culture was positive for enterococcus. Patient is on Augmentin therapy ASCVD: -- Cardiology notes reviewed. Patient is currently free from chest discomfort. He did indicate that he will schedule an outpatient cardiology evaluation due to his h/o ASCVD
--- NOTE | 2016-04-02 09:48 | Cardiology Follow-Up ---
Subjective Date of Service: Apr 02, 2016. Pt evaluation today including: conversation w/ patient, physical exam, lab review, review of studies, review of inpatient medication list History of Present Illness This is a very pleasant 70-year-old gentleman who has a history of diabetes mellitus, hypercholesterolemia, hypertension as well as known coronary artery disease. Although I don't have records he describes having chest discomfort about 20 years ago and having bypass surgery at that time. He reports not having any further chest discomfort into today. He denies a history of palpitations or rapid heart rate, and does not recall having any type of arrhythmia. He tells me he has not been on medications for his heart for many years, although he is on metoprolol and lisinopril at home. On 03/31/2016 he reported having a feeling of lightheadedness and some sort of chest discomfort although it was not really pain that he described. The discomfort lasted a relatively short period of time but may have lasted close to one hour. He has had some rapid heart rates noted on telemetry, these are rapid and regular at a rate of about 100 bpm but he seems unaware of them. He recalls his symptoms of chest discomfort between 7 and 8 a.m. although the chart indicates this was more like 5 AM. He was not on telemetry at the time but his vital signs do not indicate a rapid heart rate and an electrocardiogram then shows sinus rhythm at 66 bpm without acute changes although there are anterior T-wave abnormalities. With the chest discomfort, the hypertension and his arrhythmia I increased his beta angus. He reports having no chest discomfort since the night before last. He has not felt any palpitations. Social History Smoking Status: Never Smoker History of Alcohol Use: No Review of Systems Respiratory: No cough, No shortness of breath Cardiac: + see HPI Medications Cardiovascular: Item Value Date Time Aspirin 81 mg 04/02/16 0900 (Ecotrin Tab) QAM/PO 04/02/16 0844 Metoprolol 75 mg 04/01/16 2100 Tartrate BID/PO 04/02/16 0847 (Lopressor Tab) Atorvastatin 40 mg 03/28/16 2100 Calcium HS/PO 04/01/162056 (Lipitor Tab) Objective Vital Signs Past 12 Hours Date Time Temp Pulse Resp B/P Pulse Ox O2 Delivery O2 Flow Rate FiO2 04/02/16 04:00 Room Air 04/02/16 03:59 36.7 54 15 142/71 96 Nasal Cannula 2.0 04/01/16 23:59 36.6 69 16 155/83 94 Room Air 04/01/16 23:59 Room Air Last Recorded Weight-Kilograms: 114.500 Intake & Output 8-Hour Column 04/01/16 04/01/16 04/02/16 15:59 23:59 07:59 Intake Total 688 ml 1080 ml 1140 ml Output Total 625 ml 600 ml 450 ml Balance 63 ml 480 ml 690 ml 24-Hour Column 04/02/16 07:59 Intake Total 2908 ml Output Total 1675 ml Balance 1233 ml Physical Exam Constitutional: General Apperance: heathly-appearing Level of Distress: NAD Lungs: Respiratory effort: no dyspnea, good air movement Auscultation: breath sounds normal, no wheezing Cardiovascular: Heart Auscultation: RRR, no murmurs, no rubs, no gallops Peripheral Pulses: Bruits: none appreciated Extremities: no edema Data Laboratory Results: Last 24 Hours Test 04/01/16 11:08 04/01/16 16:27 04/01/16 20:50 04/02/16 06:20 Bedside Glucose 162 mg/dl 76 mg/dl 130 mg/dl Activated Partial Thromboplast Time 27.7 SECONDS Partial Thromboplastin Ratio 1.1 Sodium Level 147 mmol/L Potassium Level 3.6 mmol/L Chloride Level 113 mmol/L Carbon Dioxide Level 24 mmol/L Anion Gap 10.0 mmol/L Blood Urea Nitrogen 41 mg/dl Creatinine 2.70 mg/dl Est Creatinine Clear Calc Drug Dose 31.8 ml/min Estimated GFR () 26.5 Estimated GFR (Non- 22.8 BUN/Creatinine Ratio 15.2 Random Glucose 95 mg/dl Calcium Level 8.0 mg/dl Test 04/02/16 06:39 04/02/16 08:42 Bedside Glucose 97 mg/dl Telemetry reviewed: Still with brief periods of SVT, rate about 100, shorter than before and asymptomatic. Otherwise sinus rhythm and sinus bradycardia. Assessment and Plan #1. Chest discomfort: In view of his known coronary artery disease and bypass surgery this is worrisome, he feels he has not had this since his bypass surgery many years ago. He did have anterior T-wave inversions which are also worrisome however his enzymes have been negative and those changes are no longer present on his electrocardiogram today, they could be due to lead placement or transient ischemia. His discomfort has not recurred over the past several days. I don't think we should perform invasive evaluation at this time and is possible the symptoms are noncardiac. Evaluation may be indicated in the future however. He should follow-up with his outpatient guest specialist in the near future and I told him that. #2. SVT: He has intermittent SVT on the monitor, this is quite frequent (some lasting minutes but less prolonged on increased beta-blockade) but he seems unaware of these and the heart rate is only about 100 bpm. It is suggestive of a reentrant arrhythmia (such as AV srinivasan reentry or a bypass tract tachycardia) . They do start with a premature beat. This will need to be followed as an outpatient, I would discharge him on his current dose of beta blockade. #3. Coronary disease: He has known coronary artery disease and had bypass surgery in the past. It doesn't sound as though he has had a recent evaluation. The status of it is therefore uncertain. I would continue atorvastatin, and add aspirin if felt safe from his primary service, with his thrombocytopenia I'm not sure how much this would benefit in any case. Thank you for allowing me to participate in his care.
[2016-04-02 10:20] LABS: HEMATOCRIT 34.4 % (42-52); MEAN CELL VOLUME 85.1 fL (80-100); MEAN CORPUSCULAR HEMOGLOBIN 28.7 pg (25-34); MEAN CORPUSCULAR HGB CONC 33.7 g/dl (32-36); MEAN PLATELET VOLUME 13.1 fL (7.4-10.4); PLATELET COUNT 72 K/uL (130-400); RED BLOOD COUNT 4.04 M/uL (4.7-6.1); WHITE BLOOD COUNT 21.48 K/uL (4.8-10.8)
[2016-04-02 10:21] LABS: COMPLETE YES; DOHLE BODIES 2+; LYMPHOCYTE % 13.5 %; META ABS # 0.19 K/uL (0-0); METAMYELOCYTE % 0.9 %; MYELOCYTE % 2.7 %; NEUTROPHILS % 75.7 %; PLT ESTIMATE DECREASED; TOXIC GRANULATION 3+
--- NOTE | 2016-04-02 11:41 | Discharge Summary ---
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 Immunizations: Have You Had Influenza Vaccine: Unknown Influenza Vaccine Date: Nov 15, 2007 History of Tetanus Vaccine?: Yes History of Pneumococcal: Unknown Pneumococcal Date: Nov 15, 2007 History of Hepatitis B Vaccine: No Procedures: CHEST ONE VIEW PORTABLE CLINICAL HISTORY: Neutropenia, chills COMPARISON STUDY: PET/CT March 10, 2016 and chest radiograph March 29, 2014. FINDINGS: Median sternotomy wires and an electronic device projecting over the left hemithorax are noted. There is a surgical anchor within the right humeral head. There is no pneumothorax or pleural effusion. There is no evidence of pulmonary edema. Moderate cardiomegaly is unchanged. There is no consolidation. IMPRESSION: No acute cardiopulmonary findings. Electronically signed by: Frankie Duran M.D. 03/28/2016 6:33 PM Dictated Date/Time: 03/28/2016 6:31 PM The status of this report is Signed. RENAL ULTRASOUND HISTORY: Acute on chronic kidney disease. Bladder cancer. COMPARISON: Abdomen and pelvis CT 02/23/2016. FINDINGS: Right kidney: 10.8 cm. No hydronephrosis. Normal corticomedullary differentiation and cortical thickness. Suspect a 5 mm nonobstructing stone. There is a 1.1 cm exophytic cyst within the lower pole. Left kidney: 11.0 cm. No hydronephrosis. Normal corticomedullary differentiation and cortical thickness. Bladder: The bladder is now well-distended. No bladder wall thickening. The bilateral ureteral jets were identified. IMPRESSION: 1. No hydronephrosis. 2. Right-sided nephrolithiasis. Electronically signed by: Chicho Powell M.D. 03/29/2016 3:15 PM Dictated Date/Time: 03/29/2016 3:12 PM The status of this report is Signed. CHEST ONE VIEW PORTABLE HISTORY: Atypical chest pain COMPARISON: Chest 03/28/2016. FINDINGS: No pneumothorax. No pleural effusions. Post anatomy changes. The heart is normal in size. Left-sided electrode stimulator device is again noted. No new focal lung consolidations to suggest pneumonia. No evidence for pulmonary edema. Stable prominence of the perihilar vascular markings. IMPRESSION: No significant change compared to the prior study. No acute process. Electronically signed by: Chicho Powell M.D. 03/31/2016 8:04 AM Dictated Date/Time: 03/31/2016 8:00 AM The status of this report is Signed. Echocardiogram 04/01/16 Interpretation Summary * Name: LENORE SAWYER Study Date: 04/01/2016 09:34 AM BP: 140/65 mmHg * Patient Location: .MSICU\S\E110\S\1 HR: 58 * : 1945 (M/d/yyyy) Gender: Male Height: 69 in * Age: 70 yrs Ethnicity: CA Weight: 252 lb * Ordering Physician: Rashida Summers * Referring Physician: Tee Yo * Performed By: Caitlyn Snowden * * Reason For Study: CHEST PAIN * BSA: 2.3 m2 * -- Conclusions -- * 1. Normal left ventricular size with hyperdynamic systolic function. EF > 70%. No regional wall motion abnormalities. Mild concentric left ventricular hypertrophy. * 2. The left atrium is mildly dilated. * 3. The right atrium is moderately dilated. * 4. Aortic valve sclerosis mild, without significant aortic valvular stenosis. * 5. Moderate to severe pulmonary hypertension suggested with an estimated right ventricular systolic pressure of 60mmHg. * 6. Technically difficult study, enhanced with IV Definity. * 7. No prior study available for comparison. Consultations: Hematology/Oncology Nephrology Cardiolog Medication Reconciliation New Medications: Ondasetron Odt (Zofran Odt) 4 Mg Tab 4 MG SL Q6H PRN for Nausea for 15 Days, #60 TAB Aspirin (Aspirin EC Low Dose) 81 Mg Ectab 81 MG PO QAM for 30 Days, #30 TAB Changed Medications: Metoprolol Tartrate (Lopressor) (Lopressor) 25 Mg Tab 50 MG PO BID for 30 Days, #120 TAB (Changed from: 25 MG) Continued Medications: Atorvastatin (Lipitor) 80 Mg Tab 40 MG PO HS Chlorthalidone (Hygroton) 25 Mg Tab 25 TAB PO QAM Hydrocodone/Acetaminophen 5MG/325MG ([place] 5MG/325MG) Tab 1 TABLET PO Q6H PRN for Pain, #30 Insulin Regular (Human) (Humulin R U-500 (Concentr) 500 Unit/Ml Inj 22 UNITS SC BID Lisinopril (Zestril) 40 Mg Tab 40 MG PO QAM, TAB Omeprazole (Prilosec) 20 Mg Cap 20 MG PO QAM, CAP Prochlorperazine Maleate (Compazine) 10 Mg Tab 1 TAB PO Q6 PRN for Nausea or Vomiting for 7 Days, #30 TAB 3 Refills Zolpidem Tartrate (Zolpidem Tartrate) 5 Mg Tab 5 MG PO HS Discharge Exam Patient Care included: conversation w/ patient, physical exam, chart review, lab review, review of studies, review of inpatient medication list The patient was seen and examined this morning. Pt reports slept well overnight. Has been up walking by himself. Denies chest pain or discomfort since yesterday buckle sorter. He feels he is ready for discharge. Pt denies cp , sob, abd pain, n/v/d/c, lightheadedness and dizziness. Review of Systems: Constitutional: No chills, No fever, No sweats Eyes: No problem reported ENT: No problem reported Respiratory: No cough, No shortness of breath Cardiovascular: No chest pain, No palpitations Abdomen: No nausea, No pain, No vomiting Musculoskeletal: No joint pain Genitourinary - Male: No hematuria Neurologic: No numbness/tingling Integumentary: No itch, No rash Physical Exam: General Appearance: WD/WN, no apparent distress Eyes: PERRL, EOMI ENT: hearing grossly normal, pharynx normal Neck: supple, no JVD Respiratory/Chest: lungs clear, normal breath sounds, no respiratory distress, no accessory muscle use Cardiovascular: regular rate, rhythm, no JVD, normal peripheral pulses Abdomen / GI: normal bowel sounds, non tender, soft Extremities: normal inspection, no calf tenderness, + pedal edema (1+ pedal edema, nonpitting) Neurologic/Psychiatric: alert, normal mood/affect, oriented x 3 Skin: normal color, warm/dry Hospital Course Admission H&P per Dr. Cecil Boo MD. History of Present Illness Source: patient, hospital records 70 yo male with history of small cell carcinoma of the bladder, also involving the prostate with resection in February 2016. Initially thought to have renal stones but repeat cystoscopies failed to see stones. Eventually had cystoscopy with the bladder tumor resection and prostatectomy. After pathology returned, he was referred to Dr. Mcrae with oncology. PET on 03/10 fortunately did not show any evidence of metastatic disease. He had his first round of BENCH SHEAR OPERATOR-16 and Cisplatin on 03/16 over three days with plans for 17 days off and then a second round on 04/05. Over the past few days he has had poor appetite, nausea and had bad diarrhea up until a few days ago. He noticed progressive weakness and fatigue. He has also been experiencing chills, no fever, no sweats. He has not been coughing, no dyspnea. He denies abdominal pain, dysuria. He presented to [facility] last night with these symptoms and was found to be neutropenic and in BERNADETTE with a Cr of 2.1. He was given IV fluids but his Cr worsened to 3.7 and his ANC was 0 so he was transferred to [facility] for oncology and nephrology services. Currently resting comfortably, just c/o fatigue. PE: Date Time Temp Pulse Resp B/P Pulse Ox O2 Delivery O2 Flow Rate FiO2 03/28/16 15:19 37.0 67 18 130/76 99 Room Air 03/28/16 15:08 37.3 70 18 129/82 96 Room Air General Appearance: WD/WN, no apparent distress Head: normocephalic, atraumatic Eyes: normal inspection, EOMI, sclerae normal ENT: normal ENT inspection, hearing grossly normal, + pertinent finding (dry MM ) Neck: supple, no adenopathy, no JVD, trachea midline Respiratory/Chest: chest non-tender, lungs clear, normal breath sounds, no respiratory distress, no accessory muscle use Cardiovascular: regular rate, rhythm, no edema, no gallop, no JVD, no murmur, normal peripheral pulses Abdomen/GI: normal bowel sounds, non tender, soft, no organomegaly Back: normal inspection, no CVA tenderness, no muscle spasm, normal range of motion Extremities/Musculoskelatal: normal inspection, no calf tenderness, normal capillary refill, no pedal edema, normal range of motion Neurologic/Psych: director instructional material II-XII nml as tested, no motor/sensory deficits, alert, normal mood/affect, normal reflexes, oriented x 3 Skin: normal color, warm/dry, no rash Hospital Course: 70 yo male with 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 Hx of exposure to agent orange in [place]. He was admitted with acute kidney injury with CKD stage III which was secondary to right sided nephrolithiasis and strep UTI dx on urine culture. The patient was hydrated and placed on augmentin after initial intravenous antibiotics. Total antibiotic course lasted 7 days. The patient was also found to be pancytopenic due to currently undergoing antineoplastic therapy for SCC of the bladder where he required daily neupogen injections throughout admission, oncology was consulted and followed along. The patient's BERNADETTE resolved. On 03/31 the patient developed acute onset chest pain substernally at rest, therefore ACS workup was completed with known history of CAD and hx NM. Troponins were slightly elevated although it was likely this was due to BERNADETTE. His chest pain reoccured on 04/01 with similar presentation. He had episodes of nonsustained Vtach on tele monitoring although this did not correlate with chest pain. A 2D echo was completed and showed hyperdynamic EF of 70% and moderate-severe pulmonary hypertension. Metoprolol was increased to 50 mg BID during admission and VS remained stable. He did not experience other episodes of chest pain. Cardiology was involved and recommended the patient have an oupt stress test done in the near future. Chest pain Moderate to Severe Pulmonary HTN - 03/31: EKG showing new T wave inversions significant for ischemia, initial trop 0.028, then slightly trended upward -repeat EKG not showing T wave inversions ? lead misplacement - 04/01: and after recurrent cp enzymes were again trended- 0.042 -->0.032. - Cardiology consulted and are considering a re-entrant arrhythmia so metoprolol was increased to 75 mg BID. Elevated HR does not seem to correlate with episodes of chest pain. Will start on asa as his plt count continues to slowly climb. -Echo completed on 04/01 -- Conclusions -- * 1. Normal left ventricular size with hyperdynamic systolic function. EF > 70%. No regional wall motion abnormalities. Mild concentric left ventricular hypertrophy. * 2. The left atrium is mildly dilated. * 3. The right atrium is moderately dilated. * 4. Aortic valve sclerosis mild, without significant aortic valvular stenosis. * 5. Moderate to severe pulmonary hypertension suggested with an estimated right ventricular systolic pressure of 60mmHg. * 6. Technically difficult study, enhanced with IV Definity. * 7. No prior study available for comparison. - Cards is recommending a stress test at some point but not currently. - May be able to have this as an outpatient if symptoms continue to be controlled - Hx of previous NM with CAD, possibility of cardiac etiology with pain relief with nitro and aspirin 325 mg x 2 - no heparin gtt due to the patient risk of bleed with decreased plt count and hx of hematuria with bladder cx currently undergoing antineoplastic therapy. - Consider troponin bump possibly being influenced by BERNADETTE as well BERNADETTE on CKD stg III, secondary to Right sided nephrolithiasis: - Cr was 3.7 on admission, now down to 2.7 - Strict I/Os - Tolerating oral fluid intake, no IVFs overnight. - urine sodium & urine creatinine both WNL - Started on augmentin strep UTI on 03/30 - consult nephrology- appreciate recs Renal US on 03/29: 1. No hydronephrosis. 2. Right-sided nephrolithiasis. UTI - UA slightly dirty, culture growing streptococcus - Cont augmentin PO, day #4 Pancytopenia due to antineoplastic therapy, bladder cx: His ANC is 0.8, next chemo cycle was due next week. Pt no longer needs daily neupogen. - will need Neulasta as an outpatient per onc. - appreciate recs- signed off. - neutropenia precautions, received 3 days fo cefepime, cont oral augmentin ( day 4). - blood cultures no growth - CXR without acute pulmonary findings or active disease in the chest. Thrombocytopenia: related to chemo, follow with daily CBC, no bleeding or bruising currently - Now s/p 1 U platelets on 03/29 with plt count up continues to trend upward, PLT =45 on 04/01 - Follow with am labs SCC Bladder: consult oncology- appreciate recs GERD: PPI DM II: basal insulin as well as Novolog coverage, diabetic diet DVT ppx: contraindicated, thrombocytopenia Disposition: From home, dc today Total Time Spent: Greater than 30 minutes This includes examination of the patient, discharge planning, medication reconciliation, and communication with other providers. Discharge Instructions Please refer to the electronic Patient Visit Report (Discharge Instructions) for additional information. Follow-Up Follow up with your Primary Care Provider within 1 week. Follow up with cardiology within 1-2 weeks for outpatient stress test. Follow up with oncology within the next week.
[2016-04-02 11:59] VITALS: BP 136/61; PULSE 66; TEMP 36.4; O2SAT 96
[2016-07-05] MEDS ORDERED: AMLO-110 PO (12:09)
[2016-07-05] MEDS ORDERED: CEPH500C2 PO (12:09)
[2016-07-05] MEDS ORDERED: METO25TA56 PO (12:09)
[2016-07-05] MEDS ORDERED: ISOS30TA3 PO (12:09)
== END 2016-04-02 13:20 | disposition home or self-care (01) | DRG 682 ==
LOC: ENRESERVTM → ENRESERVDT → C.4E 13:43 → UNDOADMIN 13:43 → C.MSICU 03-31 09:52
PROVIDERS: ADMIT Internal Medicine; ATTEND Hospitalist
DX: N17.9 Acute kidney failure, unspecified (principal); D61.810 Antineoplastic chemotherapy induced pancytopenia; C79.11 Secondary malignant neoplasm of bladder; I47.1 Supraventricular tachycardia; N39.0 Urinary tract infection, site not specified; B95.5 Unspecified streptococcus as the cause of diseases classified elsewhere; R07.89 Other chest pain; E86.0 Dehydration; R19.7 Diarrhea, unspecified; I13.10 Hypertensive heart and chronic kidney disease without heart failure, with stage 1 through stage 4 chronic kidney disease, or unspecified chronic kidney disease; I25.10 Atherosclerotic heart disease of native coronary artery without angina pectoris; N20.0 Calculus of kidney; I27.2 Other secondary pulmonary hypertension; I25.2 Old myocardial infarction; N18.3 Chronic kidney disease, stage 3 (moderate); E11.9 Type 2 diabetes mellitus without complications; E66.9 Obesity, unspecified; Z79.899 Other long term (current) drug therapy; Z79.4 Long term (current) use of insulin; Z85.46 Personal history of malignant neoplasm of prostate; Z95.1 Presence of aortocoronary bypass graft; Z86.718 Personal history of other venous thrombosis and embolism; Z68.37 Body mass index [BMI] 37.0-37.9, adult; Z82.3 Family history of stroke; Z77.098 Contact with and (suspected) exposure to other hazardous, chiefly nonmedicinal, chemicals; Z82.49 Family history of ischemic heart disease and other diseases of the circulatory system; Z80.52 Family history of malignant neoplasm of bladder

== ENCOUNTER → 2016-04-06 | Outpatient (CLI) | payer OTHER ==
[~2016-04-06] MED LIST changes: +AMLO-110 PO; +ASPEC81 PO; +CEPH500C2 PO; +ISOS30TA3 PO; +ONDA4TAB10 SL
[2016-04-06 09:14] LABS: MANUAL MICROSCOPIC REQUIRED? YES; URINE APPEARANCE CLEAR (CLEAR); URINE BILIRUBIN NEG (NEG); URINE COLOR YELLOW; URINE NITRITE NEG (NEG); URINE PH 5.5 (4.5-7.5); URINE SPECIFIC GRAVITY 1.025 (1.000-1.030); UROBILINOGEN NEG (NEG)
[2016-04-06 09:15] LABS: REVIEW REQ? NO
[2016-04-06 09:26] LABS: URINE BACTERIA 2+ (NEG); URINE WBC >30 /hpf (0-5)
[2016-04-06 09:32] LABS: URINE PROTIEN/CREAT RATIO 0.3 (0-0.2)
== END | disposition home or self-care (01) ==
LOC: C.LABSPEC 11:51
PROVIDERS: ATTEND Internal Medicine Nephrology
DX: N17.9 Acute kidney failure, unspecified (principal)

== ENCOUNTER → 2016-06-11 | Outpatient (CLI) | payer OTHER ==
[~2016-06-11] MED LIST changes: +CEFD1CAP14 PO; +MAGN400T6 PO; +METO50TA16 PO; +NVLGI7030 SQ; -ONDA4TAB10 SL
[2016-06-11 10:48] LABS: URINE APPEARANCE CLEAR (CLEAR); URINE BILIRUBIN NEG (NEG); URINE COLOR YELLOW; URINE NITRITE NEG (NEG); URINE PH 5.5 (4.5-7.5); URINE SPECIFIC GRAVITY 1.019 (1.000-1.030); UROBILINOGEN NEG (NEG)
[2016-06-11 10:50] LABS: MANUAL MICROSCOPIC REQUIRED? NO; REVIEW REQ? NO
[2016-06-11 10:53] LABS: HEMATOCRIT 28.2 % (42-52); MEAN CELL VOLUME 87.9 fL (80-100); MEAN CORPUSCULAR HEMOGLOBIN 28.7 pg (25-34); MEAN CORPUSCULAR HGB CONC 32.6 g/dl (32-36); MEAN PLATELET VOLUME 11.2 fL (7.4-10.4); PLATELET COUNT 191 K/uL (130-400); RED BLOOD COUNT 3.21 M/uL (4.7-6.1); WHITE BLOOD COUNT 5.61 K/uL (4.8-10.8)
[2016-06-11 11:22] LABS: ALT/SGPT 20 U/L (12-78); AST/SGOT 13 U/L (15-37); BLOOD UREA NITROGEN 29 mg/dl (7-18); BUN/CREATININE RATIO 16.1 (10-20); CARBON DIOXIDE 28 mmol/L (21-32); CHLORIDE 105 mmol/L (98-107); GLUCOSE 241 mg/dl (70-99); POTASSIUM 4.5 mmol/L (3.5-5.1); SODIUM 141 mmol/L (136-145)
[2016-06-11 11:24] LABS: URINE PROTIEN/CREAT RATIO 0.2 (0-0.2); URINE TOTAL PROTEIN 25.3 mg/dl (0-11.9)
[2016-06-11 11:25] LABS: CALCIUM 9.3 mg/dl (8.5-10.1)
[2016-06-11 11:30] LABS: ALKALINE PHOSPHATASE 96 U/L (45-117)
== END | disposition home or self-care (01) ==
LOC: C.LABSPEC 14:04
PROVIDERS: ATTEND Internal Medicine Nephrology
DX: I12.9 Hypertensive chronic kidney disease with stage 1 through stage 4 chronic kidney disease, or unspecified chronic kidney disease (principal); N20.0 Calculus of kidney; N18.3 Chronic kidney disease, stage 3 (moderate); C67.9 Malignant neoplasm of bladder, unspecified

== ENCOUNTER → 2016-08-10 | Outpatient (CLI) | payer OTHER ==
[~2016-08-10] MED LIST changes: -ASPEC81 PO; -CEFD1CAP14 PO; -LISI40TA PO; -MAGN400T6 PO; -METO50TA16 PO; -NVLGI7030 SQ
[2016-08-10 10:29] LABS: URINE PROTIEN/CREAT RATIO 0.1 (0-0.2); URINE TOTAL PROTEIN 55.8 mg/dl (0-11.9)
== END | disposition home or self-care (01) ==
LOC: C.LABSPEC 10:38
PROVIDERS: ATTEND Internal Medicine Nephrology
DX: I12.9 Hypertensive chronic kidney disease with stage 1 through stage 4 chronic kidney disease, or unspecified chronic kidney disease (principal); N20.0 Calculus of kidney; C67.9 Malignant neoplasm of bladder, unspecified; N18.3 Chronic kidney disease, stage 3 (moderate); N17.9 Acute kidney failure, unspecified; C61 Malignant neoplasm of prostate

== ENCOUNTER → 2016-08-30 | Outpatient (CLI) | payer OTHER ==
--- NOTE | 2016-08-30 14:18 | DIAGNOSTIC IMAGING REPORT ---
PET/CT SKULL-THIGH HISTORY:71 years male with history of prostate and bladder cancer. COMPARISON: 03/10/2016. TECHNIQUE: The patient was injected with 13.3 mCi of F-18 fluorodeoxyglucose (FDG) and an emission scan was performed from the skull vertex to the toes. Noncontrast CT was performed for attenuation correction and anatomic localization. The blood glucose level was 141 mg/dl. FINDINGS: HEAD AND NECK: There is asymmetrically increased radiotracer uptake within the bilateral university librarian spaces, left greater than right without corresponding mass in the CT portion suggesting recent muscular activity. Additionally, there is asymmetrically increased radiotracer uptake in the region of the left vocal cords, likely secondary to recent speech. CHEST: There is a physiologic distribution of activity, with no hypermetabolic mediastinal, hilar or pulmonary foci. Mildly increased radiotracer uptake about the sternum adjacent to the sternotomy wires without corresponding CT abnormality suggest physiologic healing changes. ABDOMEN AND PELVIS: There is markedly increased radiotracer uptake about the mid to distal right ureter with SUV max of 8.5 without associated soft tissue abnormality on the CT portion. No proximal dilation is identified. SUV max of the distal right ureter measures up to 7.2. There is prominence of the distal left ureter as seen on image 210 of the axial series without significant proximal dilation appearing similar from comparison study with SUV max of 26 suggesting urinary pooling. If there was an underlying mass in this region, it would likely be obscured. Scattered areas of increased radiotracer uptake seen within the prostate with SUV max of 3.1. There is large amount of radiotracer uptake accumulation seen surrounding the scrotal tissues suggesting urinary contamination. Minimal radiotracer uptake about the rectum is likely physiologic. Distribution of radiotracer is otherwise physiologic. MUSCULOSKELETAL SYSTEM AND EXTREMITIES: There is a physiologic distribution of activity within the bone marrow, with no hypermetabolic foci. ADDITIONAL CT FINDINGS: Battery pack in the left upper chest is unchanged. The cardiac lead is enlarged with coronary arterial calcifications. There is mild nodularity of the thyroid. Lung xiong appear generally clear with only minimal atelectasis. Nonobstructing renal calculi are seen on the right measuring up to 4 mm. Pattern is nonobstructive. There is collapse the urinary bladder with mild surrounding fat stranding. Prostate contains coarse central calcifications. There is atherosclerosis of the abdominal aorta. Small fat filled left humeral hernia seen. Linear areas of increased attenuation are seen within the upper scrotum bilaterally. There is asymmetric atrophy of the left paraspinal musculature. Prior median sternotomy. No suspicious lytic or blastic bony lesions. Posterior andra and screw fixation hardware of the lumbar spine is noted. IMPRESSION: 1. Increased FDG activity within multiple portions of the bilateral ureters without corresponding soft tissue abnormality on the CT portion of the study suggests physiologic excretion without ureteral dilatation identified. 2. Focal area of soft tissue prominence with increased radiotracer uptake within the expected region of the left distal ureter is again seen which appears unchanged from comparison study and suggests a small bladder diverticulum within this region. Urothelial malignancy within this distribution is also again in the differential. 3. No hypermetabolic adenopathy or evidence of metastatic disease. 4. Diffuse increased FDG activity about the upper scrotum suggest urinary contamination. 4. Additional incidental CT findings as above. The above report was generated using voice recognition software. It may contain grammatical, syntax or spelling errors. Electronically signed by: Avel Angulo M.D. 08/30/2016 2:17 PM Dictated Date/Time: 08/30/2016 1:51 PM
== END | disposition home or self-care (01) ==
LOC: C.PET 10:11
PROVIDERS: ATTEND Urology
DX: C61 Malignant neoplasm of prostate (principal); C67.9 Malignant neoplasm of bladder, unspecified; D49.4 Neoplasm of unspecified behavior of bladder

== ENCOUNTER 2017-01-23 16:02 | Emergency (ER) | payer OTHER ==
[~2017-01-23 16:02] MED LIST changes: -CEPH500C2 PO; -HYG/25 PO; -INSUINJ2 SC; -METO25TA56 PO; +METO50TA16 PO; +NVLGI7030 SQ; -OMEP20CA9 PO
[2017-01-23 16:13] VITALS: TEMP 36.6; Ht 175.3 cm
--- NOTE | 2017-01-23 16:53 | EMERGENCY ROOM VISIT NOTE ---
ED Visit Note First contact with patient: 16:29 I have seen and examined this patient with Nohemi Goldman and agree with the treatment plan. Problem List Medical Problems: (1) Diabetes Status: Chronic (2) Hypertension Status: Chronic (3) Kidney disease Status: Chronic (4) Kidney stone Status: Resolved Surgical Problems: (1) Status post double vessel coronary artery bypass Status: Resolved Current/Historical Medications Scheduled Amlodipine (Norvasc), 5 MG PO DAILY Atorvastatin (Lipitor), 40 MG PO HS Insulin Aspart 70/30 (Novolog Mix 70/30), 32 UNITS SQ QAM Insulin Aspart 70/30 (Novolog Mix 70/30), 22 UNITS SQ QPM Isosorbide Mononitrate Ext Rel (Imdur Ext Rel), 30 MG PO QAM Metoprolol Tartrate (Lopressor) (Lopressor), 25 MG PO BID Zolpidem Tartrate (Zolpidem Tartrate), 5 MG PO HS Scheduled PRN Hydrocodone/Acetaminophen 5MG/325MG ([place] 5MG/325MG), 1 TABLET PO Q6H PRN for Pain Hydrocodone/Acetaminophen 5MG/325MG ([place] 5MG/325MG), 1 TABLET PO Q6 PRN for Pain Prochlorperazine Maleate (Compazine), 10 MG PO Q6 PRN for Nausea or Vomiting Allergies Coded Allergies: No Known Allergies (Verified , 01/23/17) Vital Signs Date Time Temp Pulse Resp B/P (MAP) Pulse Ox O2 Delivery O2 Flow Rate FiO2 01/23/17 16:13 36.6 99 20 155/92 99 Room Air Departure Information Referrals Jeremiah Thurston M.D. (PCP) Patient Instructions [facility]
[2017-01-23] MEDS ORDERED: DOCU100C31 PO (17:00)
[2017-01-23] MEDS ORDERED: HYDR2TAB48 PO (17:00)
[2017-01-23] MEDS ORDERED: DEXA2TAB PO (17:00)
[2017-01-23] MEDS ORDERED: FNTTP25 TD (17:00)
[2017-01-23] MEDS ORDERED: POLY335019 PO (17:00)
[2017-01-23] MEDS ORDERED: HALO0.5T9 PO (17:00)
[2017-01-23] MEDS ORDERED: SODIUM CHLORIDE 0.9% 500ML 500 ML IV STA (17:07)
[2017-01-23] MEDS ORDERED: CYCLOBENZAPRINE HCL 10 MG TAB PO STA (17:07)
[2017-01-23] MEDS ORDERED: HYDROmorphone INJ 1 MG/ML SYR IV ONE (17:15)
--- NOTE | 2017-01-23 17:33 | EMERGENCY ROOM VISIT NOTE ---
History First contact with patient: 16:29 Chief Complaint: OTHER COMPLAINT Stated Complaint: CANCER,PAIN IN BACK AND LLQ History of Present Illness The patient is a 71 year old male who presents to the Emergency Room with complaints of back pain and abdominal pain. 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 He is currently being treated on hospice. The patient's notes that he has been very restless at night. She says that he gets out of bed 40-50 times per night. The hospice nurses made adjustments to his medications, which did help slightly. They discontinued his Ativan. They also discontinued his Ambien. He was put on Dilaudid 2 mg. This seems to be helping with the pain. The patient is a poor historian. He does note a sharp, shooting sensation in his left lower abdomen that has been intermittent over the last few days. No nausea or vomiting. He does feel like his abdomen is full. The patient sustained a mechanical fall on 01/14. He fell landing on his knees As a result, he is complaining of low back pain. 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 Surgical Problems: (1) Status post double vessel coronary artery bypass Family History Heart disease Hypertension Social History Smoking Status: Former Smoker Alcohol Use: none Marital Status: Housing Status: lives with family Occupation Status: retired Current/Historical Medications Scheduled Dexamethasone (Dexamethasone), 2 MG PO DAILY Fentanyl (Fentanyl), 25 MCG TD Q3DAYS Insulin Aspart 70/30 (Novolog Mix 70/30), 40 UNITS SQ QAM Insulin Aspart 70/30 (Novolog Mix 70/30), 20 UNITS SQ QPM Scheduled PRN Docusate Sodium (Docusate Sodium), 100 MG PO BID PRN for Constipation Haloperidol (Haldol), 0.5 MG PO DIRECTED PRN for Anxiety/Agitation Hydromorphone Hcl (Dilaudid), 1 MG PO Q2H PRN for Pain Polyethylene Glycol 3350 (Miralax), 17 GM PO DAILY PRN for Constipation Prochlorperazine Maleate (Compazine), 10 MG PO Q6 PRN for Nausea or Vomiting Physical Exam Vital Signs Date Time Temp Pulse Resp B/P (MAP) Pulse Ox O2 Delivery O2 Flow Rate FiO2 01/23/17 18:30 86 22 147/86 100 Room Air 01/23/17 16:13 36.6 99 20 155/92 99 Room Air Physical Exam VITALS: Vitals are noted on the nurse's note and reviewed by myself. Vital signs stable. GENERAL: 71-year-old male, in no acute distress, nondiaphoretic, well-developed well-nourished. SKIN: The skin was dry HEAD: Normocephalic atraumatic. MOUTH: Mucous membranes slightly dry. NECK: Supple without nuchal rigidity. Cervical spine is nontender. No JVD. HEART: Regular rate and rhythm without murmurs gallops or rubs. LUNGS: Clear to auscultation bilaterally without wheezes, rales or rhonchi. No accessory muscle use. ABDOMEN: Positive bowel sounds x 4.Soft, nontender, without organomegaly. No guarding or rebound tenderness. MUSCULOSKELETAL: +1 pitting edema in the lower extremity bilaterally. No erythema, tenderness or warmth. Full range of motion of the knees bilaterally. No tenderness to palpation over the lumbar spinous processes. There is a muscle spasm in the left paraspinous muscle in the lumbar area. NEURO: Patient was alert and oriented to person and place. Mild confusion noted.. Medical Decision & Procedures ER Provider Diagnostic Interpretation: CT lumbar spine IMPRESSION: 1. No acute fracture or subluxation. 2. Postoperative changes from prior laminectomy with posterior interbody andra and screw fusion and discectomy at L4-L5. No evidence of hardware complication. 3. No suspicious lytic or blastic bony lesions to suggest bony metastasis. 4. Retroperitoneal and iliac chain adenopathy suggest lymphatic metastatic disease, further discussed on CT abdomen and pelvis of same day. The above report was generated using voice recognition software. It may contain grammatical, syntax or spelling errors. Electronically signed by: Avel Angulo M.D. 01/23/2017 6:39 PM Dictated Date/Time: 01/23/2017 6:34 PM The status of this report is Signed. Draft = Not yet reviewed or approved by Radiologist. Signed = Reviewed and approved by Radiologist. <AttendingPhy></AttendingPhy> <FamilyPhy>Sushant Pavon M.D.</FamilyPhy> < PrimaryPhy>Lenore Thurston M.D.</PrimaryPhy> <UnitNumber>[id number]</UnitNumber> < VisitNumber>[id number]</VisitNumber> CT abdomen and pelvis Patient Name: LENORE SAWYER Unit Number: [id number] Dictated: 01/23/171812 Transcribed: 01/23/171812 JRB Printed Date/Time: [~ rep prt dt]/[~ rep prt tm] [~ rep ct labl] - [~ rep ct ivnm] [facility] [place] [address] Dictated: 01/23/171812 Transcribed: 01/23/171812 JRB Printed Date/Time: [~ rep prt dt]/[~ rep prt tm] [~ rep ct labl] - [~ rep ct ivnm] IMPRESSION: 1. Postoperative changes of prior cystectomy and prostatectomy with diverting right lower quadrant ileal conduit. No hydronephrosis. 2. Progressive hepatic metastasis with mild enlargement of multiple periaortic, pericaval and iliac chain lymph nodes suggesting lymphatic metastasis. 3. Nonobstructing 3 mm calculus of the inferior pole right kidney. 4. Small sliding-type hiatal hernia. 5. Decreased fluid collection of the lower anterior abdominal wall suggest resolving postoperative seroma. Previously noted left pelvic fluid collection has resolved. Interval development of a 4.6 cm fluid collection of the right lower quadrant suggesting seroma or lymphocele. 6. No bowel obstruction. The above report was generated using voice recognition software. It may contain grammatical, syntax or spelling errors. Electronically signed by: Avel Angulo M.D. 01/23/2017 6:31 PM Dictated Date/Time: 01/23/2017 6:13 PM The status of this report is Signed. Draft = Not yet reviewed or approved by Radiologist. Signed = Reviewed and approved by Radiologist. <AttendingPhy></AttendingPhy> <FamilyPhy>Sushant Pavon M.D.</FamilyPhy> < PrimaryPhy>Lenore Thurston M.D.</PrimaryPhy> <UnitNumber>[id number]</UnitNumber> < VisitNumber>[id number]</VisitNumber> <PatientName>LENORE SAWYER</ PatientName> <DateOfBirth>1945</DateOfBirth> <Location>[facility]</Location> < ServiceDate>01/23/17</ServiceDate> <MNE>ESINDI</MNE> <OrderingPhy>Nohemi Goldman PA-C</OrderingPhy> <OrderingPhyMNE>f rep ord dr alvarado</OrderingPhyMNE> < DictatingPhyMNE>f rep dict dr alvarado</DictatingPhyMNE> <CCListMNE>f rep ct mne</ CCListMNE> <AdmittingPhyMNE>f pt admit dr alvarado</AdmittingPhyMNE> <AttendingPhyMNE >f pt attend dr alvarado</AttendingPhyMNE> <ConsultingPhyMNE>f pt consult dr alvarado</ConsultingPhyMNE> <FamilyPhyMNE>f pt fam dr alvarado</FamilyPhyMNE> <OtherPhyMNE>f pt other dr alvarado</OtherPhyMNE> < PrimaryPhyMNE>f pt prim care dr alvarado</PrimaryPhyMNE> <ReferringPhyMNE>f pt referring dr alvarado</ReferringPhyMNE> Laboratory Results 01/23/17 17:30 Red Blood Count 3.11, Mean Corpuscular Volume 91.0, Mean Corpuscular Hemoglobin 28.6, Mean Corpuscular Hemoglobin Concent 31.4, Mean Platelet Volume 10.2, Neutrophils (%) (Auto) 71.4, Lymphocytes (%) (Auto) 18.4, Monocytes (%) (Auto) 9.6, Eosinophils (%) (Auto) 0.2, Basophils (%) (Auto) 0.2, Neutrophils # (Auto) 4.31, Lymphocytes # (Auto) 1.11, Monocytes # (Auto) 0.58, Eosinophils # (Auto) 0.01, Basophils # (Auto) 0.01 01/23/17 17:30 Test 01/23/17 17:30 01/23/17 18:26 White Blood Count 6.03 K/uL (4.8-10.8) Red Blood Count 3.11 M/uL (4.7-6.1) Hemoglobin 8.9 g/dL (14.0-18.0) Hematocrit 28.3 % (42-52) Mean Corpuscular Volume 91.0 fL (80-100) Mean Corpuscular Hemoglobin 28.6 pg (25-34) Mean Corpuscular Hemoglobin Concent 31.4 g/dl (32-36) Platelet Count 120 K/uL (130-400) Mean Platelet Volume 10.2 fL (7.4-10.4) Neutrophils (%) (Auto) 71.4 % Lymphocytes (%) (Auto) 18.4 % Monocytes (%) (Auto) 9.6 % Eosinophils (%) (Auto) 0.2 % Basophils (%) (Auto) 0.2 % Neutrophils # (Auto) 4.31 K/uL (1.4-6.5) Lymphocytes # (Auto) 1.11 K/uL (1.2-3.4) Monocytes # (Auto) 0.58 K/uL (0.11-0.59) Eosinophils # (Auto) 0.01 K/uL (0-0.5) Basophils # (Auto) 0.01 K/uL (0-0.2) RDW Standard Deviation 53.4 fL (36.4-46.3) RDW Coefficient of Variation 16.1 % (11.5-14.5) Immature Granulocyte % (Auto) 0.2 % Immature Granulocyte # (Auto) 0.01 K/uL (0.00-0.02) Red Blood Cell Morphology Unremarkable Anion Gap 9.0 mmol/L (3-11) Estimated GFR () 28.2 Estimated GFR (Non- 24.3 BUN/Creatinine Ratio 21.1 (10-20) Calcium Level 8.5 mg/dl (8.5-10.1) Total Bilirubin 0.5 mg/dl (0.2-1) Aspartate Amino Transf (AST/SGOT) 21 U/L (15-37) Alanine Aminotransferase (ALT/SGPT) 23 U/L (12-78) Alkaline Phosphatase 93 U/L (45-117) Total Protein 6.1 gm/dl (6.4-8.2) Albumin 3.2 gm/dl (3.4-5.0) Globulin 2.9 gm/dl (2.5-4.0) Albumin/Globulin Ratio 1.1 (0.9-2) Urine Color YELLOW Urine Appearance CLEAR (CLEAR) Urine pH 7.0 (4.5-7.5) Urine Specific [place] 1.013 (1.000-1.030) Urine Protein NEG (NEG) Urine Glucose (UA) NEG (NEG) Urine Ketones NEG (NEG) Urine Occult Blood TRACE (NEG) Urine Nitrite POS (NEG) Urine Bilirubin NEG (NEG) Urine Urobilinogen NEG (NEG) Urine Leukocyte Esterase MODERATE (NEG) Urine WBC (Auto) 10-30 /hpf (0-5) Urine RBC (Auto) 0-4 /hpf (0-4) Urine Hyaline Casts (Auto) 1-5 /lpf (0-5) Urine Epithelial Cells (Auto) >30 /lpf (0-5) Urine Bacteria (Auto) 1+ (NEG) Medications Administered Medications (Trade) Dose Ordered Sig/Reese Route Start Time Stop Time Status Last Admin Dose Admin Hydromorphone HCl (Dilaudid Inj) 1 mg ONE ONCE IV 01/23/17 17:15 01/23/17 17:19 DC 01/23/17 17:38 1 MG Cyclobenzaprine HCl (Flexeril Tab) 10 mg NOW STAT PO 01/23/17 17:07 01/23/17 17:10 DC 01/23/17 17:39 10 MG Sodium Chloride 500 ml @ 999 mls/hr Q31M STAT IV 01/23/17 17:07 01/23/17 17:37 DC 01/23/17 17:39 999 MLS/HR ED Course Patient was seen and examined Vital signs including blood pressure were reviewed medications list was verified with patient Labs were obtained, and a saline lock was established The patient was medicated with Dilaudid and Flexeril. Imaging was performed and reviewed Upon reevaluation, the patient was much more comfortable. We thoroughly reviewed his workup. He and his verbalized understanding. They're comfortable being discharged home. The patient was given an additional fentanyl patch 25 g. This was applied in the emergency department. He was given a home pack of Flexeril I reviewed discharge instructions the patient. They voiced understanding and had no further questions. Medical Decision Differential diagnosis: Spine fracture, spondylolisthesis, spondylosis, herniated disc, contusion, muscle spasm, metastatic disease This patient is a 71-year-old male that presents the emergency department with complaints of abdominal pain and back pain. It appears that the patient was seen in [facility] 2 nights ago. He also already has hospice in place. The patient's said that they wanted a second opinion. On exam, the patient is mildly confused. His abdomen was benign. A CT of the lumbar spine was performed. No fractures or bony lesions were noted. He does unfortunately have progression of his metastatic cancer. He also has a seroma in the area of the pain. I believe he is stable to be discharged home. Slight adjustments were made to his medications for better pain relief and to help him with his restlessness. His fentanyl was increased to 50 g patch every 3 days. He was also prescribed melatonin 3 mg at night. He was given a prescription for Flexeril 10 mg every 8 hours as needed for muscular back pain. He and his seemed happy with this plan of care. They will follow up closely with their oncologist. They're in agreement to return to the emergency department with any new or concerning symptoms. This chart was completed in part utilizing [employer] Speech Voice Recognition software. Attempts were made to minimize the grammatical errors, random word insertions, pronoun errors and incomplete sentences. Any formal questions or concerns about the content, text or information contained within the body of this dictation should be directly addressed to the provider for clarification. Medication Reconcilliation Current Medication List: was personally reviewed by de Blood Pressure Screening Patient's blood pressure: Elevated blood pressure Blood pressure disposition: Did not require urgent referral Impression Primary Impression: Chronic pain Departure Information Dispostion Home / Self-Care Condition FAIR Prescriptions Cyclobenzaprine Hcl (FLEXERIL) 10 Mg Tab 10 MG PO TID for muscular pain, #30 TAB Prov: Nohemi Goldman PA-C 01/23/17 Melatonin (KP MELATONIN) 3 Mg Tab 1 TAB PO HS for 30 Days, #30 TAB Prov: Nohemi Goldman PA-C 01/23/17 Fentanyl (Fentanyl) 50 Mcg Tdsy 1 PATCH TD Q72H, #3 PATCH Prov: Nohemi Goldman PA-C 01/23/17 Referrals Lenore Thurston M.D. (PCP) Anthony Mcrae D.O. Patient Instructions My [facility] Additional Instructions Lenore was seen in the emergency department today for pain and restlessness. A few changes have been made to his medications. Fentanyl has been increased to 50 g patch every 3 days He was prescribed Flexeril 10 mg every 8 hours as needed for muscular pain He was also prescribed melatonin 3 mg tab 1 at bedtime Please follow up closely with your primary care physician in addition to your oncologist Please return to the emergency department with any new, worsening or concerning symptoms
[2017-01-23 17:45] LABS: BASO % 0.2 %; BASO ABS # 0.01 K/uL (0-0.2); EOS % 0.2 %; HEMATOCRIT 28.3 % (42-52); IG% 0.2 %; LYMPH % 18.4 %; LYMPH ABS # 1.11 K/uL (1.2-3.4); MEAN CORPUSCULAR HEMOGLOBIN 28.6 pg (25-34); MEAN CORPUSCULAR HGB CONC 31.4 g/dl (32-36); MEAN PLATELET VOLUME 10.2 fL (7.4-10.4); MONO % 9.6 %; NEUT % 71.4 %; PLATELET COUNT 120 K/uL (130-400); RED BLOOD COUNT 3.11 M/uL (4.7-6.1); WHITE BLOOD COUNT 6.03 K/uL (4.8-10.8)
[2017-01-23 18:12] LABS: ALT/SGPT 23 U/L (12-78); AST/SGOT 21 U/L (15-37); BLOOD UREA NITROGEN 54 mg/dl (7-18); BUN/CREATININE RATIO 21.1 (10-20); CALCIUM 8.5 mg/dl (8.5-10.1); CARBON DIOXIDE 19 mmol/L (21-32); CHLORIDE 113 mmol/L (98-107); CREATININE 2.55 mg/dl (0.60-1.40); GLUCOSE 166 mg/dl (70-99); POTASSIUM 4.3 mmol/L (3.5-5.1); SODIUM 141 mmol/L (136-145)
[2017-01-23 18:15] LABS: ALB/GLOB RATIO 1.1 (0.9-2); ALKALINE PHOSPHATASE 93 U/L (45-117)
--- NOTE | 2017-01-23 18:32 | DIAGNOSTIC IMAGING REPORT ---
ABD/PELVIS WITHOUT FOR STONE HISTORY: 71 years-old Male LLQ abd pain hx met cancer to liver acute left lower quadrant abdominal pain with history of bladder carcinoma. Prior cystectomy with right lower quadrant ileal conduit. Prior prostatectomy. Hepatic metastasis COMPARISON: CT abdomen and pelvis 12/28/2016, PET CT 08/30/2016 TECHNIQUE: Multiple axial CT images of the abdomen and pelvis were obtained without IV contrast. A dose lowering technique was used consistent with the principals of GIOVANNI. FINDINGS: Lung bases are generally clear. Median sternotomy wires are noted. No pneumatosis or pneumoperitoneum. Imaged inferior cardiac chambers appear mildly enlarged. Low attenuating lesions throughout the liver compatible with metastasis again seen. Large mass of the left hepatic lobe, 6.1 x 4.7 cm has increased in size, previously 4.2 x 4.0 cm. Mass of the right hepatic lobe measures 4.3 x 3.4 cm, previously 3.5 x 3.0 cm. Additional left hepatic lobe mass is seen, 2.5 cm, previously 1.6 cm. No intrahepatic biliary ductal dilation. Spleen, gallbladder, pancreas and adrenal glands are within normal limits. Mild symmetric bilateral nonspecific perinephric stranding. Nonobstructing 3 mm calculus of the inferior pole right kidney. There is mild dilation of the distal ureters. Postoperative changes compatible prior cystectomy and prostatectomy. Diverting right lower quadrant ileal conduit is again noted. Enlarging homogeneous ovoid fluid collection of the right lower quadrant the pelvis measures 4.6 x 2.4 x 6.5 cm. The previously noted left lower quadrant fluid collection which measured up to 3.9 cm is no longer appreciated. Decreased amount of fluid is noted at the surgical site of the lower anterior abdominal wall, now measuring 6.5 x 0.9 cm, previously 12.4 x 23 cm. Small fat filled left inguinal hernia. Moderate atherosclerosis of the aorta. Small sliding-type hiatal hernia. 8 mm lymph node within the hiatal hernia is noted, previously 5 mm which is nonspecific. Small duodenal diverticulum. No bowel obstruction or focal bowel wall thickening. Appendix not seen and may be surgically absent. Mild periaortic, pericaval and iliac chain adenopathy is noted. Index right iliac chain lymph node measuring 8 mm is seen on image 252 series 3, previously 6 mm. 8 mm left iliac chain lymph node on image 232 series 3 previously measured 5 mm. 10 mm periaortic lymph node on image 124 series 3 previously measured 8 mm. No suspicious lytic or blastic bony lesions to suggest bony metastasis. Prior laminectomy with posterior interbody andra and screw fusion with discectomy at L4-L5. IMPRESSION: 1. Postoperative changes of prior cystectomy and prostatectomy with diverting right lower quadrant ileal conduit. No hydronephrosis. 2. Progressive hepatic metastasis with mild enlargement of multiple periaortic, pericaval and iliac chain lymph nodes suggesting lymphatic metastasis. 3. Nonobstructing 3 mm calculus of the inferior pole right kidney. 4. Small sliding-type hiatal hernia. 5. Decreased fluid collection of the lower anterior abdominal wall suggest resolving postoperative seroma. Previously noted left pelvic fluid collection has resolved. Interval development of a 4.6 cm fluid collection of the right lower quadrant suggesting seroma or lymphocele. 6. No bowel obstruction. The above report was generated using voice recognition software. It may contain grammatical, syntax or spelling errors. Electronically signed by: Avel Angulo M.D. 01/23/2017 6:31 PM Dictated Date/Time: 01/23/2017 6:13 PM
[2017-01-23 18:40] LABS: URINE APPEARANCE CLEAR (CLEAR); URINE BILIRUBIN NEG (NEG); URINE COLOR YELLOW; URINE EPITHELIAL CELL AUTO >30 /lpf (0-5); URINE NITRITE POS (NEG); URINE SPECIFIC GRAVITY 1.013 (1.000-1.030); UROBILINOGEN NEG (NEG)
--- NOTE | 2017-01-23 18:41 | DIAGNOSTIC IMAGING REPORT ---
LUMBAR SPINE WITHOUT HISTORY: 71 years-old Male low back pain s/p fall acute low back pain status post fall. History of malignant bladder cancer COMPARISON: CT abdomen and pelvis of same day, CT 12/18/2016 and 01/23/2016, PET CT 08/30/2016, lumbar spine CT 09/20/2014 TECHNIQUE: Multiple axial CT images of the lumbar spine were obtained without contrast. A dose lowering technique was used consistent with the principals of ALARA. FINDINGS: Postoperative changes of prior laminectomy with posterior interbody andra and screw fusion and discectomy at L4-L5 redemonstrated. No evidence of hardware fracture or loosening. Large posterior bridging osteophyte is noted at this level. No acute fracture or subluxation. No suspicious lytic or blastic bony lesions to suggest metastasis. Image sacrum appears intact. 20 degrees levoscoliosis. Mild degenerative changes of the SI joints. Focal cortical lucency involving the posterior aspect of the left iliac bone, image 27 series 4 is unchanged from prior studies suggesting benign insignificant finding. Mild multilevel facet arthrosis and endplate spurring. Left basal atelectasis. No acute intra-abdominal or intrapelvic abnormal amount. Retroperitoneal adenopathy redemonstrated. Moderate atrophy of the paraspinal muscle rupture, left greater the right. IMPRESSION: 1. No acute fracture or subluxation. 2. Postoperative changes from prior laminectomy with posterior interbody andra and screw fusion and discectomy at L4-L5. No evidence of hardware complication. 3. No suspicious lytic or blastic bony lesions to suggest bony metastasis. 4. Retroperitoneal and iliac chain adenopathy suggest lymphatic metastatic disease, further discussed on CT abdomen and pelvis of same day. The above report was generated using voice recognition software. It may contain grammatical, syntax or spelling errors. Electronically signed by: Avel Angulo M.D. 01/23/2017 6:39 PM Dictated Date/Time: 01/23/2017 6:34 PM
[2017-01-23 18:45] LABS: MANUAL MICROSCOPIC REQUIRED? NO; REVIEW REQ? NO
[2017-01-23 18:46] LABS: COMPLETE YES
[2017-01-23] MEDS ORDERED: FENTANYL 50 MCG/HR TDSY TD SCH (19:15)
[2017-01-23] MEDS ORDERED: FLEXERIL HOME PACK 10 MG VIAL PO ONE (19:15)
[2017-01-23] MEDS ORDERED: MELA1TAB5 PO (19:19)
[2017-01-23] MEDS ORDERED: DRGTP50 TD (19:19)
[2017-01-23] MEDS ORDERED: CYCL10TA6 PO (19:19)
[2017-01-23] MEDS ORDERED: FENTANYL 50 MCG/HR TDSY TD STA (19:50)
[2017-01-23 20:00] VITALS: BP 158/90; PULSE 90; O2SAT 100
[2017-01-23] MEDS ORDERED: FENTANYL 25 MCG/HR TDSY TD SCH (20:00)
== END 2017-01-23 20:00 | disposition home or self-care (01) ==
LOC: C.EDB 16:03 → C.EDC 20:00
DX: G89.29 Other chronic pain (principal); Z85.51 Personal history of malignant neoplasm of bladder; Z85.46 Personal history of malignant neoplasm of prostate; Z85.05 Personal history of malignant neoplasm of liver; N18.3 Chronic kidney disease, stage 3 (moderate); E11.22 Type 2 diabetes mellitus with diabetic chronic kidney disease; I12.9 Hypertensive chronic kidney disease with stage 1 through stage 4 chronic kidney disease, or unspecified chronic kidney disease; Z87.442 Personal history of urinary calculi; Z82.49 Family history of ischemic heart disease and other diseases of the circulatory system; Z87.891 Personal history of nicotine dependence; Z79.4 Long term (current) use of insulin; Z79.899 Other long term (current) drug therapy